=== PATIENT | male | born 1970 | race Two or more races ===

== ENCOUNTER 2025-02-05 00:59 | Inpatient (IN) | payer MEDICAID, SELFPAY ==
[2025-02-05] VITALS (150 sets, daily range): BP systolic 56–179; BP diastolic 29–108; PULSE 66–114; RESP 6–30; TEMP 36.2–37.6; O2SAT 82–100; BMI 36.8
--- NOTE | 2025-02-05 01:04 | EKG_ITS ---
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
--- NOTE | 2025-02-05 01:17 | PD.EDABDPN ---
ED Abdominal Pain RME/HPI General Chief Complaint: Abdominal Pain Stated complaint: ABD PAIN, N/V X 3 DAYS Time seen by provider: 02/05/25 01:24 Arrival date/time: 02/05/25 00:59 RME / HPI RME / HPI narrative: See MDM for Dr. Garrison's HPI documentation. Related Data Home Medications ?Medication ?Instructions ?Recorded ?Confirmed empagliflozin 25 mg tablet 25 mg PO QDAY 09/07/22 02/08/24 (Jardiance) gabapentin 300 mg capsule 600 mg PO TID 09/07/22 02/08/24 insulin regular human 100 unit/mL See Rx Instructions .Route .COMPLEX 09/07/22 02/08/24 injection solution (Novolin R Regular U-100 Insulin) Held on 01/08/24. Instructions: Re-evaluate with PCP lisinopril 10 mg tablet 10 mg PO QDAY 09/07/22 02/08/24 Held on 01/08/24. Instructions: Re evaluate with PCP, blood pressure has been normal/low while in the hospital insulin detemir U-100 100 unit/mL 100 unit subcut QDAY 01/05/24 02/08/24 subcutaneous solution (Levemir U-100 Insulin) Held on 01/08/24. Instructions: re-evaluate with PCP metformin 1,000 mg tablet 1,000 mg PO BIDWMEAL 01/05/24 02/08/24 simvastatin 20 mg tablet 20 mg PO QPM 01/05/24 02/08/24 Previous Rx's ?Medication ?Instructions ?Recorded hydrocodone 5 mg-acetaminophen 325 1 tab PO BID PRN Pain (Scale Score 01/08/24 mg tablet 4-6) 10 days #20 tabs aspirin 325 mg capsule 325 mg PO BID #30 caps 01/11/24 Allergies Allergy/AdvReac Type Severity Reaction Status Date / Time No Known Allergies Allergy Verified 02/05/25 01:04 Review of Systems Review of Systems Systems Reviewed: All systems reviewed, normal except as documented Past Medical History Past Medical History NEUROLOGIC: Positive Head Trauma (head laceration from present fall.); Negative Neurological Disorders or Seizures CARDIAC: Positive Hypertension; Negative Cardiac Disorders or Congestive Heart Failure RESPIRATORY: Negative Chronic Obstructive Pulmonary Disease (COPD) or Asthma GASTROINTESTINAL: Positive Obesity GENITOURINARY: Positive Renal Disease MUSCULOSKELETAL: Positive Fractures ENT: Positive Head Trauma (head laceration from present fall.) ENDOCRINE: Positive Endocrine Disorders and Diabetes Mellitus Type 2; Negative Diabetes Mellitus Type 1 HEMATOLOGIC: Negative Sickle Cell Disease PSYCHO/SOCIAL: Positive Depression OTHER HISTORY: Positive Falls; Negative Autoimmune Disease, Blood Transfusions, Blood Transfusion Reaction, Anesthesia Reactions, MRSA, Clostridium Difficile or Cancer Social History SMOKING STATUS: Never smoker SUBSTANCE USE: does not use ED Exam Narrative Physical exam: See MDM for Dr. Garrison's physical exam documentation. Course Quality Measures none Orders Category Date Time Status Admit to Inpatient Status Routine Admission 02/05/25 03:44 Active Patient Condition Routine Admission 02/05/25 03:43 Ordered Bedside Blood Glucose NOW Care 02/05/25 01:04 Active Bedside Blood Glucose Q1H Care 02/05/25 03:46 Active Bedside COVID-19 Antigen Test NOW Care 02/05/25 01:24 Active COVID-19 Screening Questionnaire NOW Care 02/05/25 03:37 Active [employer]otive [employer] Counter Assistant Q4H Care 02/05/25 03:46 Active DKA Protocol QSHIFT Care 02/05/25 03:46 Active Decision to Admit X1 Care 02/05/25 03:36 Active EKG (ED ONLY) *Do not use* NOW Care 02/05/25 01:04 Completed EKG (ED ONLY) *Do not use* NOW Care 02/05/25 01:57 Completed Emergency Titration Protocol Stat Care 02/05/25 01:46 Ordered Christina to Meridian Routine Care 02/05/25 02:13 Ordered Intake and Output Q1H Care 02/05/25 04:00 Ordered Intake and Output Q1H Care 02/05/25 05:00 Ordered Intake and Output Q1H Care 02/05/25 06:00 Ordered Intake and Output Q1H Care 02/05/25 07:00 Ordered Intake and Output Q1H Care 02/05/25 08:00 Ordered Intake and Output Q1H Care 02/05/25 09:00 Ordered Intake and Output Q1H Care 02/05/25 10:00 Ordered Intake and Output Q1H Care 02/05/25 11:00 Ordered Intake and Output Q1H Care 02/05/25 12:00 Ordered Intake and Output Q1H Care 02/05/25 13:00 Ordered Intake and Output Q1H Care 02/05/25 14:00 Ordered Intake and Output Q1H Care 02/05/25 15:00 Ordered Intake and Output Q1H Care 02/05/25 16:00 Ordered Intake and Output Q1H Care 02/05/25 17:00 Ordered Intake and Output Q1H Care 02/05/25 18:00 Ordered Intake and Output Q1H Care 02/05/25 19:00 Ordered Intake and Output Q1H Care 02/05/25 20:00 Ordered Intake and Output Q1H Care 02/05/25 21:00 Ordered Intake and Output Q1H Care 02/05/25 22:00 Ordered Intake and Output Q1H Care 02/05/25 23:00 Ordered Notify provider NEEDED Care 02/05/25 03:43 Active Notify provider NEEDED Care 02/05/25 03:46 Active Saline [Insert IV] NOW Care 02/05/25 01:25 Active Referral Registered Dietitian Routine Cons 02/05/25 03:46 Active Diet Carbohydrate Consistent Diet 02/05/[address] chest abdomen pelvis wo Stat Exams 02/05/25 01:27 Taken EKG (ED Only) Stat Exams 02/05/25 01:04 Draft EKG (ED Only) Stat Exams 02/05/25 01:57 Draft XR chest 1V portable Stat Exams 02/05/25 01:27 Taken ABG [Arterial Blood Gas] Stat Lab 02/05/25 03:43 Completed Alcohol, Blood Medical Stat Lab 02/05/25 01:32 Completed Ammonia Stat Lab 02/05/25 01:32 Completed Amylase Stat Lab 02/05/25 01:32 Completed BNP [B-Type Natriuretic Peptide] Stat Lab 02/05/25 01:32 Completed Beta Hydroxybutyrate Stat Lab 02/05/25 01:32 Completed Bilirubin,Direct Stat Lab 02/05/25 01:32 Completed Blood Culture (Lab) Stat Lab 02/05/25 01:32 Received CBC AM DRAW Lab 02/05/25 05:00 Ordered CBC AM DRAW Lab 02/06/25 05:00 Ordered CBC AM DRAW Lab 02/07/25 05:00 Ordered CBC Stat Lab 02/05/25 01:32 Completed CK [Creatine Kinase] Stat Lab 02/05/25 01:32 Completed CMP [Comprehensive Metabolic Panel] Stat Lab 02/05/25 01:32 Completed CRP [C-Reactive Protein] Stat Lab 02/05/25 01:32 Completed Drug Screen,Urine Stat Lab 02/05/25 01:52 Completed ESR [Sed Rate (ESR)] Stat Lab 02/05/25 01:32 Completed Free T4 (Free Thyroxine) Stat Lab 02/05/25 03:46 Ordered Glycohemoglobin w (eAG) AM DRAW Lab 02/05/25 05:00 Ordered Influenza A & B Rapid Panel Stat Lab 02/05/25 01:35 Completed Influenza A & B Rapid Panel Stat Lab 02/05/25 02:18 Ordered Lactate (Lactic Acid) Q4H Lab 02/05/25 08:00 Ordered Lactate (Lactic Acid) Q4H Lab 02/05/25 12:00 Ordered Lactate (Lactic Acid) Q4H Lab 02/05/25 16:00 Ordered Lactate (Lactic Acid) Q4H Lab 02/05/25 20:00 Ordered Lactate (Lactic Acid) Stat Lab 02/05/25 01:32 Results Lipase Stat Lab 02/05/25 01:32 Completed Magnesium AM DRAW Lab 02/05/25 05:00 Ordered Magnesium AM DRAW Lab 02/06/25 05:00 Ordered Magnesium AM DRAW Lab 02/07/25 05:00 Ordered Magnesium Q4H Lab 02/05/25 08:00 Ordered Magnesium Q4H Lab 02/05/25 12:00 Ordered Magnesium Q4H Lab 02/05/25 16:00 Ordered Magnesium Q4H Lab 02/05/25 20:00 Ordered Magnesium Q4H Lab 02/06/25 00:00 Ordered Magnesium Q4H Lab 02/06/25 04:00 Ordered Magnesium Q4H Lab 02/06/25 08:00 Ordered Magnesium Q4H Lab 02/06/25 12:00 Ordered Magnesium Q4H Lab 02/06/25 16:00 Ordered Magnesium Q4H Lab 02/06/25 20:00 Ordered Magnesium Q4H Lab 02/07/25 00:00 Ordered Magnesium Q4H Lab 02/07/25 04:00 Ordered Magnesium Stat Lab 02/05/25 01:32 Completed Path Review Blood Smear Stat Lab 02/05/25 01:32 Completed Procalcitonin Stat Lab 02/05/25 01:32 Completed Renal Function Panel AM DRAW Lab 02/05/25 05:00 Ordered Renal Function Panel AM DRAW Lab 02/06/25 05:00 Ordered Renal Function Panel AM DRAW Lab 02/07/25 05:00 Ordered Renal Function Panel Q4H Lab 02/05/25 08:00 Ordered Renal Function Panel Q4H Lab 02/05/25 12:00 Ordered Renal Function Panel Q4 Lab 02/05/25 16:00 Ordered Renal Function Panel Q4 Lab 02/05/25 20:00 Ordered Renal Function Panel Q4 Lab 02/06/25 00:00 Ordered Renal Function Panel Q4 Lab 02/06/25 04:00 Ordered Renal Function Panel Q4 Lab 02/06/25 08:00 Ordered Renal Function Panel Q4 Lab 02/06/25 12:00 Ordered Renal Function Panel Q4 Lab 02/06/25 16:00 Ordered Renal Function Panel Q4 Lab 02/06/25 20:00 Ordered Renal Function Panel Q4 Lab 02/07/25 00:00 Ordered Renal Function Panel Q4 Lab 02/07/25 04:00 Ordered TSH [Thyroid Stimulating Hormone] Stat Lab 02/05/25 01:32 Completed Troponin I Stat Lab 02/05/25 01:32 Completed UA, C/S IF [Urinalysis, C/S if Indicated] Stat Lab 02/05/25 01:52 Completed Amiodarone 360 mg Ivpb [Nexterone Ivpb] Med 02/05/25 01:56 Active 360 mg in 200 ml IV 33.333 mls/hr Amiodarone Inj [Cordarone Inj] Med 02/05/25 01:54 Discontinued 150 mg IV .STK-MED ONE Amiodarone Inj [Cordarone Inj] Med 02/05/25 02:03 Discontinued 150 mg IV .STK-MED ONE Amiodarone Inj [Cordarone Inj] 150 mg Med 02/05/25 01:55 Discontinued Dextrose 5%-Water [D5w] 100 ml IV X1 Dextrose 5%-Lactated Ringers [D5-Lr] 1,000 ml Med 02/05/25 03:46 Ordered Pot Chl Additive [KCl Additive] 40 meq IV 250 mls/hr Dextrose 5%-Lactated Ringers [D5-Lr] 1,000 ml Med 02/05/25 03:46 Active IV 250 mls/hr Dextrose 50% Syr [D50w Syringe Abboject] Med 02/05/25 03:46 Active 25 ml IV PRNMRX1 PRN Diazepam Inj [Valium Inj] Med 02/05/25 01:55 Discontinued 5 mg IVP X1 ONE KCL 20 mEq/L in D5-LR Med 02/05/25 03:46 Active 20 meq in 1,000 ml IV 250 mls/hr Magnesium Sulfate 2 GM Ivpb [Magnesium Sulfate Ivpb] Med 02/05/25 03:46 Active 2 gm in 50 ml IV 25 mls/hr Magnesium Sulfate 2 GM Ivpb [Magnesium Sulfate Ivpb] Med 02/05/25 01:55 Discontinued 2 gm in 50 ml IV X1 Magnesium Sulfate 2 GM Ivpb [Magnesium Sulfate Ivpb] Med 02/05/25 02:12 Active 2 gm in 50 ml IV X1 Magnesium Sulfate 2 GM Ivpb [Magnesium Sulfate Ivpb] 50 Med 02/05/25 01:54 Discontinued ml IV .STK-MED Norepinephrine/D5W 8mg/250ml [Levophed in D5W 8mg/250ml Med 02/05/25 01:38 Active ] 8 mg in 250 ml IV 0.05 mcg/kg/min Ondansetron Inj [Zofran Inj] Med 02/05/25 01:26 Discontinued 4 mg IVP X1 ONE POT PHOS 15 mMol in NS 250 ML [Pot Phos 15 mMol in NS Med 02/05/25 03:46 Ordered 250 ml] 15 mmol in 250 ml IV PRN POTASSIUM CHL 10 mEq IVPB [Kcl Ivpb] Med 02/05/25 03:46 Active 10 meq in 100 ml IV 100 mls/hr POTASSIUM CHL 10 mEq IVPB [Kcl Ivpb] Med 02/05/25 03:46 Active 10 meq in 100 ml IV PRN POTASSIUM CHL 10 mEq IVPB [Kcl Ivpb] Med 02/05/25 03:12 Active 10 meq in 100 ml IV X1 POTASSIUM CHL 10 mEq IVPB [Kcl Ivpb] Med 02/05/25 03:13 Active 10 meq in 100 ml IV X1 Ringers Lactated 1000 ml [Lactated Ringers] 1,000 ml Med 02/05/25 03:46 Ordered Pot Chl Additive [KCl Additive] 20 meq IV 250 mls/hr Ringers Lactated 1000 ml [Lactated Ringers] 1,000 ml Med 02/05/25 03:46 Ordered Pot Chl Additive [KCl Additive] 40 meq IV 250 mls/hr Ringers Lactated 1000 ml [Lactated Ringers] 1,000 ml Med 02/05/25 02:24 Discontinued IV 1,000 mls/hr Ringers Lactated 1000 ml [Lactated Ringers] 1,000 ml Med 02/05/25 03:46 Active IV 250 mls/hr Ringers Lactated 1000 ml [Lactated Ringers] 1,000 ml Med 02/05/25 03:30 Active IV 500 mls/hr Sodium Bicarb 8.4% SYR Med 02/05/25 03:46 Active 50 ml IV Q4HR PRN Sodium Chloride 0.9% 1000 ml [Ns] 1,000 ml Med 02/05/25 01:26 Discontinued IV 999 mls/hr Sodium Chloride 0.9% 1000 ml [Ns] 1,000 ml Med 02/05/25 01:37 Discontinued IV 999 mls/hr Sodium Chloride 0.9% 250 ml [Ns] 250 ml Med 02/05/25 03:46 Ordered Sod Phos Additive [NaPhos Additive] 15 mmol IV 62.5 mls/hr Code Status Routine Oth 02/05/25 03:43 Ordered EKG (RT) Stat RT 02/05/25 03:46 Ordered Vital Signs Vital signs: Vital Signs Temperature 98.0 F 02/05/25 01:05 Pulse Rate 105 H 02/05/25 01:05 Respiratory Rate 20 02/05/25 01:05 Pulse Oximetry (%) 98 02/05/25 01:05 Oxygen Delivery Method Room Air 02/05/25 01:05 Abdominal Pain MDM MDM Narrative MDM Narrative:: This section includes all my notes and documentations, including HPI, PE, and ED course. Bob Garrison MD HPI: 54-year-old male here to be evaluated with AMS. Can't obtain history from the patient due to AMS. History is from son who is present and over the phone. Has insulin-dependent diabetes. No use of insulin for several months, until yesterday. Son reports several days of progressively worsening mental status and inability to ambulate and function. Normally, he is completely alert and oriented and ambulatory. reports decreased oral intake and vomiting. No other complaints. ROS: All negative except as documented in HPI. Physical Exam: General:?Patient is severely lethargic. Unpurposeful movements noted. Hypotension noted. Eyes:? Conjunctivae and lids clear.? EOMI.? PERRL. ENT:? No signs of head trauma. Neck:? Supple.? No tenderness. Heart:? RRR. Lungs:? No respiratory distress.? Decreased air movement.? No severe rhonchi, wheezing, rales.? Chest:? No tenderness. Abdomen:? Soft with equivocal lower quadrant tenderness.? Normal bowel sounds.? No distension.? No rebound or guarding.? Back:? No tenderness.? Skin:? Warm and dry.? Neuro:? Cranial Nerves II-XII grossly intact.? No obvious peripheral motor deficits. Musculoskeletal:? All major joints and bones are not tender with no limited ROM. I reviewed all diagnostic test results. My interpretation of the EKG is sinus rhythm with no acute ST?T changes. My interpretation of the chest x-ray is no acute findings. My review of the CT chest abdomen pelvis report is no acute findings. Blood tests remarkable for WBC 13.7, ESR 66, K 2.9, CO2 11.2, anion gap 22, creatinine 1.6, Lactic Acid 4.9, CRP 1.3, amylase 199, lipase 341, Beta Hydroxybutyrate 4.8. UA remarkable for 4+ glucose and 4+ ketones. COVID/Influenza negative. At this point, diagnoses include: Hypotension AMS (altered mental status) LILIANA (acute kidney injury) Hypokalemia Ventricular tachycardia (during the ED course, resolved with MgSO4 and Amiodarone) Starvation ketoacidosis Treatment here included: IVF (4 L) Zofran MgSO4 4 gram IV Amiodarone bolus and drip KCl 10 meq IV X 2 Levophed drip Improvement noted. I discussed the case with our ICU service. About the presentation and exam and diagnostics and treatments here. And need of further care in the hospital. Will accept the patient. Bob Garrison MD Patient data External records reviewed:: [facility] previous records (Per chart review, patient was admitted here on 01/03/24 for LILIANA.) Clinical information provided by:: patient Social determinants that could affect healthcare access:: none Patient has the following chronic illnesses:: DM, HTN How is presenting disease/condition affected by chronic disease/condition?: uneffected by Evaluation data The following diagnostics were reviewed and interpreted by me:: lab results, radiology exam(s) and EKG tracing(s) (My interpretation of the EKG is: Sinus rhythm (103 bpm) with nonspecific ST-T changes. Bob Garrison MD) Lab and/or radiology exams considered but not ordered:: none Interpretation Summary: I reviewed all diagnostic test results. My interpretation of the EKG is sinus rhythm with no acute ST?T changes. My interpretation of the chest x-ray is no acute findings. My review of the CT chest abdomen pelvis report is no acute findings. Blood tests remarkable for WBC 13.7, ESR 66, K 2.9, CO2 11.2, anion gap 22, creatinine 1.6, Lactic Acid 4.9, CRP 1.3, amylase 199, lipase 341, Beta Hydroxybutyrate 4.8. UA remarkable for 4+ glucose and 4+ ketones. COVID/Influenza negative. Medications / Prescriptions Medications or Prescriptions considered but not ordered:: none Medication administrations:: Medication Administration History Dextrose (Dextrose 50%-Water Inj 50 Ml Syringe) 25 ml IV PRNMRX1 PRN PRN Reason: Blood Sugar - Low Norepinephrine/Dextrose (Levophed In D5w 8mg/250ml) 8 mg in 250 mls @ 9.993 mls/hr IV .Q24H PRN; Protocol PRN Reason: PER PROTOCOL Stop: 03/07/25 01:37 Last Titration: 02/05/25 03:34 Dose: 0 mcg/kg/min, 0.19 mls/hr Documented By: Titration: 02/05/25 03:27 Dose: 0 mcg/kg/min, 0.19 mls/hr Documented By: Titration: 02/05/25 03:22 Dose: 0.19 mcg/kg/min, 37.974 mls/hr Documented By: Titration: 02/05/25 02:18 Dose: 0.12 mcg/kg/min, 23.984 mls/hr Documented By: [email or web address] Titration: 02/05/25 02:13 Dose: 0.1 mcg/kg/min, 19.986 mls/hr Documented By: [email or web address] Titration: 02/05/25 02:08 Dose: 0.09 mcg/kg/min, 17.988 mls/hr Documented By: [email or web address] Titration: 02/05/25 01:51 Dose: 0.1 mcg/kg/min, 19.986 mls/hr Documented By: [email or web address] Titration: 02/05/25 01:49 Dose: 0.09 mcg/kg/min, 17.988 mls/hr Documented By: [email or web address] Admin: 02/05/25 01:41 Dose: 0.05 mcg/kg/min, 9.993 mls/hr Documented By: YRIS Amiodarone HCl/Dextrose (Nexterone Ivpb) 360 mg in 200 mls @ 33.333 mls/hr IV .Q6H ONE Stop: 02/05/25 07:55 Last Admin: 02/05/25 02:06 Dose: 33.333 mls/hr Documented By: YRIS Magnesium Sulfate (Magnesium Sulfate Ivpb) 2 gm in 50 mls @ 25 mls/hr IV X1 ONE Stop: 02/05/25 04:11 Last Admin: 02/05/25 02:24 Dose: 25 mls/hr Documented By: YRIS Potassium Chloride (Kcl Ivpb) 10 meq in 100 mls @ 100 mls/hr IV X1 ONE Stop: 02/05/25 04:11 Last Admin: 02/05/25 03:25 Dose: 100 mls/hr Documented By: MONICA Potassium Chloride (Kcl Ivpb) 10 meq in 100 mls @ 100 mls/hr IV X1 ONE Stop: 02/05/25 04:12 Lactated Ringer's (Lactated Ringers) 1,000 mls @ 500 mls/hr IV .Q2H ANGÉLICA Stop: 03/07/25 03:29 Potassium Chloride (Kcl Ivpb) 10 meq in 100 mls @ 100 mls/hr IV .Q1H PRN PRN Reason: IF POTASSIUM LESS THAN 3.3 Stop: 03/07/25 03:45 Magnesium Sulfate (Magnesium Sulfate Ivpb) 2 gm in 50 mls @ 25 mls/hr IV .Q2H PRN PRN Reason: PER DKA PROTOCOL Stop: 03/07/25 03:45 Dextrose/Lactated Ringer's (D5-Lr) 1,000 mls @ 250 mls/hr IV .Q4H PRN PRN Reason: PER PROTOCOL Stop: 03/07/25 03:45 Lactated Ringer's (Lactated Ringers) 1,000 mls @ 250 mls/hr IV .Q4H PRN PRN Reason: PER PROTOCOL Stop: 02/06/25 03:45 Potassium Chloride 20 meq/ (Lactated Ringer's) 1,010 mls @ 250 mls/hr IV .Q4H3M PRN PRN Reason: K LEVEL 3.3 TO 5.3mM/L Stop: 03/07/25 03:45 Potassium Chloride 40 meq/ (Lactated Ringer's) 1,020 mls @ 250 mls/hr IV .Q4H5M PRN PRN Reason: K LEVEL < 3.3 mM/L Stop: 03/07/25 03:45 Potassium Chloride 40 meq/ (Dextrose/Lactated Ringer's) 1,020 mls @ 250 mls/hr IV .Q4H5M PRN PRN Reason: K LEVEL < 3.3mM/L Stop: 03/07/25 03:45 Potassium Cl/Dextrose/Lact Ringer's (Kcl 20 Meq/L In D5-Lr) 20 meq in 1,000 mls @ 250 mls/hr IV .Q4H PRN PRN Reason: K LEVEL 3.3 TO 5.3 mM/L Potassium Chloride (Kcl Ivpb) 10 meq in 100 mls @ 50 mls/hr IV PRN PRN PRN Reason: K LEVEL 3.3 to 5.3 & BG > 200 Stop: 03/07/25 03:45 Potassium Phosphate (Pot Phos 15 Mmol In Ns 250 Ml) 15 mmol in 250 mls @ 62.5 mls/hr IV PRN PRN PRN Reason: Phosphate <= 1mg/dL Stop: 03/07/25 03:45 Sodium Phosphate 15 mmol/ (Sodium Chloride) 255 mls @ 62.5 mls/hr IV .Q4H5M PRN PRN Reason: Phosphate <= 1mg/dL and K> than 5.3 Stop: 03/07/25 03:45 Sodium Bicarbonate (Sodium Bicarb Inj 8.4% Syr 50 Ml Syringe) 50 ml IV Q4HR PRN PRN Reason: For ph <= to 7.0 Stop: 03/07/25 03:45 Discontinued Medications Amiodarone HCl (Amiodarone Inj 50 Mg/Ml Vial 3 Ml) Confirm Administered Dose 150 mg IV .STK-MED ONE Stop: 02/05/25 01:55 Last Admin: 02/05/25 02:03 Dose: Not Given Documented By: YRIS Non-Admin Reason: Duplicate Medication on eMAR Amiodarone HCl (Amiodarone Inj 50 Mg/Ml Vial 3 Ml) Confirm Administered Dose 150 mg IV .STK-MED ONE Stop: 02/05/25 02:04 Last Admin: 02/05/25 02:10 Dose: Not Given Documented By: YRIS Non-Admin Reason: Duplicate Medication on eMAR Diazepam (Diazepam Inj 5 Mg/Ml Vial 2 Ml) 5 mg IVP X1 ONE Stop: 02/05/25 01:56 Sodium Chloride (Ns) 1,000 mls @ 999 mls/hr IV .Q1H1M ONE Stop: 02/05/25 02:26 Last Infusion: 02/05/25 02:13 Dose: Infused Documented By: Admin: 02/05/25 01:39 Dose: 999 mls/hr Documented By: Infusion: 02/05/25 01:39 Dose: Infused Documented By: Admin: 02/05/25 01:33 Dose: 999 mls/hr Documented By: YRIS Sodium Chloride (Ns) 1,000 mls @ 999 mls/hr IV .Q1H1M ONE Stop: 02/05/25 02:37 Last Infusion: 02/05/25 02:13 Dose: Infused Documented By: Admin: 02/05/25 01:40 Dose: 999 mls/hr Documented By: YRIS Magnesium Sulfate (Magnesium Sulfate Ivpb) 2 gm in 50 mls @ 25 mls/hr IV X1 ONE Stop: 02/05/25 03:54 Last Infusion: 02/05/25 02:11 Dose: Infused Documented By: Admin: 02/05/25 02:01 Dose: 25 mls/hr Documented By: YRIS Amiodarone HCl 150 mg/ (Dextrose) 103 mls @ 600 mls/hr IV X1 ONE Stop: 02/05/25 02:05 Last Admin: 02/05/25 02:04 Dose: 600 mls/hr Documented By: YRIS Magnesium Sulfate (Magnesium Sulfate Ivpb) Confirm Administered Dose 50 mls @ ud IV .STK-MED ONE Stop: 02/05/25 01:55 Last Admin: 02/05/25 02:02 Dose: Not Given Documented By: YRIS Non-Admin Reason: Duplicate Medication on eMAR Lactated Ringer's (Lactated Ringers) 1,000 mls @ 1,000 mls/hr IV .Q1H ONE Stop: 02/05/25 03:23 Last Admin: 02/05/25 03:30 Dose: 1,000 mls/hr Documented By: MONICA Ondansetron HCl (Ondansetron Inj 2 Mg/Ml Inj 2 Ml) 4 mg IVP X1 ONE; Protocol Stop: 02/05/25 01:27 Last Admin: 02/05/25 01:39 Dose: 4 mg Documented By: YRIS Treatment here from me included: IVF (4 L) Zofran MgSO4 4 gram IV Amiodarone bolus and drip KCl 10 meq IV X 2 Levophed drip Consultations Consultation(s) initiated? (list below): Yes Consultation #1 (Physician, Specialty, Details): I discussed the case with our ICU service. About the presentation and exam and diagnostics and treatments here. And need of further care in the hospital. Will accept the patient. Diagnosis Differential diagnosis abdominal pain: other (MT, DKA, dehydration, electro abnormalities, UTI, pneumonia, sepsis) Most likely diagnosis given after review of the tests above:: At this point, diagnoses include: Hypotension AMS (altered mental status) LILIANA (acute kidney injury) Hypokalemia Ventricular tachycardia (during the ED course, resolved with MgSO4 and Amiodarone) Starvation ketoacidosis Admission Indicated Admission indicated?: indicated Explain why admission is indicated or not indicated:: At this point, diagnoses include: Hypotension AMS (altered mental status) LILIANA (acute kidney injury) Hypokalemia Ventricular tachycardia (during the ED course, resolved with MgSO4 and Amiodarone) Starvation ketoacidosis Admission Request Was there a request for admission?: Yes Admission Attestation Admission request attestation: Discussed case with ICU service regarding admission. Discussed patients ED course, exam findings, labs, and radiology results. Agreed to accept the patient for admission. Disposition Plan Disposition Plan: Admit Critical Care Time Critical Care Time Critical Care Time: Yes Total Critical Care Time (min.): 35 Attestation: Due to a high probability of clinically significant, life threatening deterioration, the patient required my highest level of preparedness to intervene emergently and I personally spent this critical care time directly and personally managing the patient. This critical care time included obtaining a history; examining the patient; ordering and review of studies; arranging urgent treatment with development of a management plan; evaluation of patient's response to treatment; frequent reassessment; and discussions with family and other providers. It was exclusive of separately billable procedures and treating other patients and teaching time. Bob Garrison MD Discharge Plan Plan Patient Disposition: Admit Acute Care w/in Hospital Prescriptions/Referrals Prescriptions/Med Rec: No Action lisinopril 10 mg tablet 10 mg PO QDAY gabapentin 300 mg capsule 600 mg PO TID Novolin R Regular U100 Insulin 100 unit/mL solution See Rx Instructions .ROUTE .COMPLEX Patient Comments: INJECT 15-45 UNITS PER SLIDING SCALE TARAH VECES AL D A 15 MINUTES BEFORE MEALS FOR 30 DAYS Rx Instructions: INJECT 15-45 UNITS PER SLIDING SCALE 3 TIMES DAILY Jardiance 25 mg tablet 25 mg PO QDAY Levemir U-100 Insulin 100 unit/mL Solution 100 unit SUBCUT QDAY Rx Instructions: patient takes 60 units twice a day sub q simvastatin 20 mg Tablet 20 mg PO QPM metformin 1,000 mg Tablet 1,000 mg PO BIDWMEAL hydrocodone-acetaminophen 5-325 mg Tablet 1 tab PO BID PRN (Reason: Pain (Scale Score 4-6)) 10 Days Qty: 20 0RF aspirin 325 mg capsule 325 mg PO BID Qty: 30 0RF Problem List Clinical Impression: AMS (altered mental status), LILIANA (acute kidney injury), Hypokalemia, Ventricular tachycardia, Starvation ketoacidosis, Acute hypotension Patient/Caregiver Discharge Instructions Print Language: Danish Stand Alone Forms: Nikole Award Info., Patient Portal Info Letter
--- NOTE | 2025-02-05 01:27 | XR_ITS ---
Examination: CT chest, without intravenous contrast. CT abdomen, without intravenous contrast. CT pelvis, without intravenous contrast. 2-D sagittal and coronal reconstructions. 3-D reconstructions. Date and time of exam: February 05, 2025, 0306 hours INDICATIONS: Abdominal pain nausea vomiting beginning 3 days ago CTDI vol (mgy) 16.4 DLP (MGycm) 1347 Technique: Multiple CT images, 3.0 mm slice thickness, obtained chest, abdomen, pelvis, with the high-resolution 64 slice scanner.. Sagittal and coronal 2-D reconstructions are obtained. 3-D reconstructions Low dose protocols were performed. One or more of the following dose reduction techniques were used; automated exposure control, adjustment of the mA and/or KV according to patient size, use of iterative reconstruction technique. Findings: Thoracic aorta pulmonary arteries intact Mild calcification left anterior descending coronary artery No hemopericardium Prominent vascular congestion Small bleb in the right lower lung zone 13 mm No definite pneumonia or pulmonary contusion No hemothorax Sternal segments thoracic and lumbar vertebral bodies appear intact with significant disc narrowing L5-S1 Ribs intact No liver or splenic or renal laceration Mild perinephric stranding Mild to moderate renal scar formation Abdominal aorta intact, no free blood in the abdomen Normal appendix Tiny fat-containing umbilical hernia Normal seminal vesicles Urinary bladder is contracted around a Christina catheter with wall thickening Hips bones of the pelvis intact IMPRESSION: 13 mm small bleb in the right lower lung zone No pneumothorax hemopericardium or hemothorax No abdominal parenchymal laceration Mild perinephric stranding and mild to moderate renal scar formation Normal appendix Urinary bladder is thickened, consider cystitis
--- NOTE | 2025-02-05 01:27 | XR_ITS ---
EXAMINATION: AP chest single view TECHNIQUE: AP portable semiupright chest single view Date and time: February 05, 2025, 0324 hours, comparison 01/03/2024 INDICATIONS: Abdominal pain nausea vomiting beginning 3 days ago FINDINGS: Atelectasis versus early pneumonia left base Reduced inspiration. Normal heart size Impression: Atelectasis versus early pneumonia left base
[2025-02-05] MEDS: SODIUM CHLORIDE 0.9% 1000 ML 1,000 ML 999 ML IV ×3 (01:33→01:40)
[2025-02-05] MEDS: ONDANSETRON INJ 2 MG/ML INJ 2 ML 4 MG IVP (01:39)
[2025-02-05] MEDS: Norepinephrine/D5W 8mg/250ml 8 MG/250 ML BAG 9.993 MG IV (01:41)
--- NOTE | 2025-02-05 01:57 | EKG_ITS ---
[facility] Test Date: 2025-02-05 Pat Name: GT Brodypartment: Room: - Gender: Male Cpht: : 1970 Requested By: Bob Huertas Order Number: [id number] Reading MD: Bob Huertas Measurements Intervals [place] Rate: 101 P: [place]: QRS: -71 QRSD: 134 T: 71 QT: 421 QTc: 547 Interpretive Statements UNCERTAIN IRREGULAR RHYTHM RIGHT BUNDLE BRANCH BLOCK [120+ ms QRS DURATION, UPRIGHT V1, 40+ ms S IN I/aVL/V4/V5/V6] LEFT ANTERIOR FASCICULAR BLOCK [QRS AXIS <= -45, QR IN I, RS IN II] CRITICAL TEST RESULT Compared to ECG 02/05/2025 01:09:26 Right bundle-branch block now present Left anterior fascicular block now present Sinus tachycardia no longer present Short [place] interval no longer present ST (T wave) deviation no longer present /store/S0/[id number].pdf
[2025-02-05] MEDS: Magnesium Sulfate 2 GM Ivpb 2 GM/50 ML BAG IV ×2 (02:01→02:24)
[2025-02-05] MEDS: DEXTROSE 5% IV (02:04)
[2025-02-05] MEDS: AMIODARONE IV (02:04)
[2025-02-05] MEDS: WATER IV (02:04)
[2025-02-05] MEDS: AMIODARONE 360 MG IVPB 360 MG/200 ML BAG 33.333 MG IV (02:06)
[2025-02-05 02:11] LABS: Collection Type, Urine Clean Catch
[2025-02-05 02:15] LABS: Basophils # (Auto) 0.1 Thou/mm3 (0.0-0.2); Basophils % (Auto) 0 % (0-2.5); Eosinophils # (Auto) 0.1 Thou/mm3 (0.0-0.5); Eosinophils % (Auto) 1 % (0-10); Hematocrit 49.7 % (41.0-53.0); Hemoglobin 16.5 g/dL (13.5-16.0); Immature Granulocytes Auto 0.15 Thou/mm3 (0.00-0.00); Lymphocytes # (Auto) 6.6 Thou/mm3 (1.0-4.8); Lymphocytes % (Auto) 48 % (10-50); Mean Corpuscular HGB Conc 33.2 g/dl (31.0-37.0); Mean Corpuscular Hemoglobin 30.1 pg (25.0-35.0); Mean Corpuscular Volume 91 fL (80-100); Monocytes # (Auto) 0.9 Thou/mm3 (0.0-0.8); Monocytes % (Auto) 7 % (0-12); Neutrophils # (Auto) 5.9 Thou/mm3 (1.8-7.7); Neutrophils % (Auto) 43 % (37-80); Nucleated Red Blood Cell # 0.03 Thou/mm3 (0.00-0.00); Nucleated Red Blood Cell % 0 /100 WBC (0); Platelet Count 330 Thou/mm3 (140-440); RDW Standard Deviation 42.7 fL (35.1-43.9); Red Blood Count 5.48 Miln/mm3 (4.50-5.90); White Blood Count 13.7 Thou/mm3 (3.8-10.6)
[2025-02-05 02:20] LABS: Lactate (Lactic Acid) 4.9 mMol/L (0.4-2.0)
[2025-02-05 02:21] LABS: Beta Hydroxybutyrate 4.8 mmol/L (<0.6)
[2025-02-05 02:22] LABS: Amphetamine/Methamp Scrn,U Negative (Negative); Barbiturate Screen,Urine Negative (Negative); Benzodiazepines Screen,Urine Negative (Negative); Benzoylecgonine Screen, Ur Negative (Negative); Fentanyl Screen,Urine Negative (Negative); Opiate Screen,Urine Negative (Negative); THC Screen,Urine Negative (Negative)
[2025-02-05 02:28] LABS: Sed Rate (ESR) 66 mm/hr (0-20)
[2025-02-05 02:33] LABS: Influenza A Ag Negative; Influenza B Ag Negative
[2025-02-05 02:45] LABS: B-Type Natriuretic Peptide < 20 pg/mL (0-100)
[2025-02-05 02:54] LABS: Bilirubin,Urine Negative (Negative); Blood,Urine Trace (Negative); Clarity,Urine Clear (Clear/Hazy); Color,Urine Colorless (Lt Yel-Yel); Culture Indicated,Urine Not Indicated; Glucose, Urine 4+ (Negative); Ketones,Urine 4+ (Negative); Leukocyte Esterase,Urine Negative (Negative); Nitrite,Urine Negative (Negative); PH,Urine 6.5 (5.0-7.0); Protein,Urine 1+ (Neg - Trace); RBC,Urine 3 /hpf (0-3); Renal Epithelial Cells,Urine < 1 /hpf (0-5); Specific Gravity,Urine 1.017 (1.001-1.035); Squamous Epithelial Cell,Urine < 1 /hpf (0-5); Urobilinogen,Urine Negative mg/dL (0.0-1.0); WBC,Urine 1 /hpf (0-5)
[2025-02-05 02:58] LABS: Alanine Aminotransferase 10 U/L (10-49); Albumin, Serum 4.4 gm/dL (3.5-5.0); Albumin/Globulin Ratio 1.3 (1.2-2.2); Alcohol, Blood Medical < 3.0 mg/dL (0-10.0); Alkaline Phosphatase 114 U/L (46-116); Ammonia < 10 uMol/L (11-32); Amylase 199 U/L (30-118); Anion Gap 22 (7-16); Aspartate Amino Transferase 16 U/L (0-34); BUN/Creatinine Ratio 6 Ratio (12-20); Bilirubin,Direct 0.1 mg/dL (0.0-0.3); Bilirubin,Total 0.4 mg/dL (0.3-1.2); Blood Urea Nitrogen 9 mg/dL (9-23); C-Reactive Protein 1.3 mg/dL (0.0-0.9); Calcium 10.0 mg/dL (8.3-10.6); Calcium (Corrected) 10.0 mg/dL (8.5-10.1); Chloride 107 mMol/L (98-107); Creatine Kinase 146 U/L (34-171); Creatinine (Component) 1.6 mg/dL (0.6-1.3); Estimated Creatinine Clearance 62.9 mL/min (>60); Globulin 3.3 gm/dL (2.3-3.5); Glucose 121 mg/dL (74-106); Lipase 342 U/L (12-53); Magnesium 2.3 mg/dL (1.6-2.6); Osmolality,Calculated 279 (275-295); Potassium 2.9 mMol/L (3.4-5.1); Procalcitonin 0.16 ng/ml (0.0-0.49); Sodium 140 mMol/L (136-145); Thyroid Stimulating Hormone 5.89 uIU/mL (0.55-4.78); Total Protein 7.7 gm/dL (5.7-8.2); Troponin I 0.022 ng/mL (0.0-0.045); eGFR 52 See Note
[2025-02-05 03:04] LABS: Carbon Dioxide 11.2 mMol/L (20.0-31.0)
[2025-02-05 03:10] LABS: Path Review Blood Smear Sent to Pathologist
[2025-02-05] MEDS: POTASSIUM CHL 10 mEq IVPB 10 MEQ/100 ML BAG 100 MEQ IV ×3 (03:25→05:49)
[2025-02-05] MEDS: RINGERS LACTATED 1000 ML 1,000 ML IV (03:30)
[2025-02-05 03:46] LABS: Base Excess -17 (-3-3); HCO3 10 mEq/L (20-26); Inspired O2, VO2 Liters 3 L/min; Inspired Oxygen, FIO2 21 %; O2 Saturation 96 % (91-98); PCO2 26 mmHg (32.0-48.0); PO2 85 mmHg (83-108)
--- NOTE | 2025-02-05 03:46 | EKG_ITS ---
[facility] Test Date: 2025-02-05 Pat Name: GT Brodypartment: Room: - Gender: Male Analysis Manager: SD : 1970 Requested By: Satish Hawkins Order Number: [id number] Reading MD: Satish Hawkins Measurements Intervals [place] Rate: 69 P: 26 NM: 147 QRS: -36 QRSD: 104 T: 76 QT: 446 QTc: 479 Interpretive Statements SINUS RHYTHM MARKED LEFT AXIS DEVIATION NONSPECIFIC ST & T-WAVE ABNORMALITY PROLONGED QT INTERVAL Compared to ECG 02/05/2025 01:58:47 Left-axis deviation now present T-wave abnormality now present Prolonged QT interval now present Right bundle-branch block no longer present Left anterior fascicular block no longer present /store/S0/[id number].pdf
[2025-02-05 03:51] LABS: pH, Arterial 7.17 (7.35-7.45)
[2025-02-05 03:52] LABS: Allen Test Performed/OK; Puncture Site Right Radial
--- NOTE | 2025-02-05 03:53 | ESHP_ITS ---
<Statement entered by Ady Vaughn MD - 02/05/25 07:13> I have discussed and was present for the essential components of the history, physical examination, diagnosis, and treatment plan with the resident. I agree with the patient's care as documented by the resident and amended herein by me. Ady Vaughn MD FACP. Documentation for date of: 02/05/25 HPI History of Present Illness History of present illness: Chief complaint: Altered mental status HPI: Mr. Calzada is a 54-year-old male with past medical history of type II IDDM, primary hypertension and recent right ankle ORIF, who was brought in to the ED via EMS for altered mentation. As per ED documentation, patient has apparently been noncompliant with his insulin at home, along with poor oral intake. Son reported several days of progressively worsening mental status, with inability to ambulate and carry out ADLs. At baseline patient is alert and oriented, and is able to perform ADLs independently. As per patient, he stopped his insulin about 2 months ago as it was making him crave sugars and have an increased appetite. He also stopped his oral medications on his own. He was AO x 3 in the ED when evaluated, claims that he does not think medications are working which is why he stopped everything. Patient also complains of burning and irritation in passing urine for the last 3 days, denies any fever or other systemic symptoms. Per son at bedside, daughter bought insulin and gave it to him 3 days ago to restart home medications, which triggered all the symptoms. In the ED, vitals showed hypotension BP 70/50, MAP 50s. Tachycardia HR 101-105 bpm, afebrile, and saturations 96/97% on 3 L oxygen via nasal cannula. Initial laboratory workup remarkable for mild leukocytosis WBC 13.7 with lymphocyte predominance, hemoconcentration Hb 16.5, hypokalemia K2.9, BHB 4.8 anion gap 22, pH 7.17, CO2 26 and bicarb 11.2, glucose 121, lactic acid 4.9. He also had mildly elevated CRP 1.3, TSH 5.89, lipase 342 and amylase 199. UA remarkable for 4+ glucosuria and 4+ ketonuria. U tox negative. EKG showed sinus tachycardia. Patient was admitted to the ICU for management of diabetic ketoacidosis, likely starvation ketoacidosis. Will start patient on DKA protocol without insulin drip at this time. Also started on Levophed for blood pressure. Allergies: NKFDA Social history: Marital?Status:? Tobacco?Use:?Denies ETOH?Use:?Denies Drug?Note:?Denies Social?History?Note:?Lives?with family Family history: Unsure Review of Systems Review of Systems ROS Unobtainable: unobtainable due to mental status Exam Vital Signs Temp Pulse Resp BP Pulse Ox O2 Del Method O2 Flow Rate 97.6 F 72 19 95/53 L 97 Nasal Cannula 3 02/05/25 02:26 02/05/25 02:26 02/05/25 02:26 02/05/25 02:26 02/05/25 02:26 02/05/25 02:02/05/25 02:26 Narrative Exam Constitutional Alert, oriented x3, drowsy. Turkish-speaking, son present at bedside for translation HEENT Vision grossly intact, PERRL. Patent nares. Trachea midline. Respiratory Chest normal on inspection and clear to auscultation bilaterally. Cardiovascular S1 and S2 audible, RRR. No murmurs or carotid bruit. No gross JVD. Abdominal Soft and BS + ; non tender to palpation in all quadrants. Genitourinary No bladder tenderness, no flank pain. Normal to palpation. Musculoskeletal Extremities tone within normal limits. No LE edema, left UE first phalanx amputation Neurological CN II - XII grossly intact. Extremity motor and sensation grossly intact. Skin Warm, dry and intact. No apparent lesions. Psychiatric Patient has a good affect, is cooperative. Results: Labs 02/05/25 04:30 02/05/25 01:32 Labs: Short CBC 02/05/25 Range/Units 01:32 WBC 13.7 H (3.8-10.6) Thou/mm3 Hgb 16.5 H (13.5-16.0) g/dL Hct 49.7 (41.0-53.0) % Plt Count 330 (140-440) Thou/mm3 BMP 02/05/25 01:32 Sodium 140 Potassium 2.9 L Chloride 107 Carbon Dioxide 11.2 L* BUN 9 Creatinine 1.6 H Glucose 121 H Calcium 10.0 Cardiac Enzymes 02/05/25 Range/Units 01:32 Total Creatine Kinase 146 (34-171) U/L Troponin I 0.022 (0.0-0.045) ng/mL Liver Function 02/05/25 Range/Units 01:32 Total Bilirubin 0.4 (0.3-1.2) mg/dL Direct Bilirubin 0.1 (0.0-0.3) mg/dL AST 16 (0-34) U/L ALT 10 (10-49) U/L Alkaline Phosphatase 114 (46-116) U/L Albumin 4.4 (3.5-5.0) gm/dL Urine 02/05/25 Range/Units 01:52 Urine Color Colorless A (Lt Yel-Yel) Urine Clarity Clear (Clear/Hazy) Urine pH 6.5 (5.0-7.0) Ur Specific [place] 1.017 (1.001-1.035) Urine Protein 1+ A (Neg - Trace) Urine Glucose (UA) 4+ A (Negative) ABG Interpretation ABG results: 02/05/25 03:43 ABG pH 7.17 L* ABG pCO2 26 L ABG pO2 85 ABG HCO3 10 L ABG O2 Saturation 96 ABG Base Excess -17 L Quality Measures Quality Measures none Medications Home Medications and Allergies Home Medications ?Medication ?Instructions ?Recorded ?Confirmed ?Type empagliflozin 25 mg tablet 25 mg PO QDAY 09/07/2201/29 History (Jardiance) gabapentin 300 mg capsule 600 mg PO TID 09/07/2202/07 History insulin regular human 100 unit/mL See Rx Instructions .Route .COMPLEX 09/07/22 02/08/24 History injection solution (Novolin R Regular U-100 Insulin) Held on 01/08/24. Instructions: Re-evaluate with PCP lisinopril 10 mg tablet 10 mg PO QDAY 09/07/2202/07 History Held on 01/08/24. Instructions: Re evaluate with PCP, blood pressure has been normal/low while in the hospital insulin detemir U-100 100 unit/mL 100 unit subcut QDAY 01/05/24 02/08/24 History subcutaneous solution (Levemir U-100 Insulin) Held on 01/08/24. Instructions: re-evaluate with PCP metformin 1,000 mg tablet 1,000 mg PO BIDWMEAL 4 02/08/24 History simvastatin 20 mg tablet 20 mg PO QPM 01/05/24 History Allergies Allergy/AdvReac Type Severity Reaction Status Date / Time No Known Allergies Allergy Verified 02/05/25 01:04 Visit Medications Dextrose (Dextrose 50%-Water Inj 50 Ml Syringe) 25 ml IV [id number] PRN PRN Reason: Blood Sugar - Low Norepinephrine/Dextrose (Levophed In D5w 8mg/250ml) 8 mg in 250 mls @ 9.993 mls/hr IV .Q24H PRN; Protocol PRN Reason: PER PROTOCOL Stop: 03/07/25 01:37 Last Titration: 02/05/25 03:34 Dose: 0 mcg/kg/min, 0.19 mls/hr Magnesium Sulfate (Magnesium Sulfate Ivpb) 2 gm in 50 mls @ 25 mls/hr IV X1 ONE Stop: 02/05/25 03:54 Last Infusion: 02/05/25 02:11 Dose: Infused Amiodarone HCl/Dextrose (Nexterone Ivpb) 360 mg in 200 mls @ 33.333 mls/hr IV .Q6H ONE Stop: 02/05/25 07:55 Last Admin: 02/05/25 02:06 Dose: 33.333 mls/hr Magnesium Sulfate (Magnesium Sulfate Ivpb) 2 gm in 50 mls @ 25 mls/hr IV X1 ONE Stop: 02/05/25 04:11 Last Admin: 02/05/25 02:24 Dose: 25 mls/hr Potassium Chloride (Kcl Ivpb) 10 meq in 100 mls @ 100 mls/hr IV X1 ONE Stop: 02/05/25 04:11 Last Admin: 02/05/25 03:25 Dose: 100 mls/hr Potassium Chloride (Kcl Ivpb) 10 meq in 100 mls @ 100 mls/hr IV X1 ONE Stop: 02/05/25 04:12 Lactated Ringer's (Lactated Ringers) 1,000 mls @ 500 mls/hr IV .Q2H ANGÉLICA Stop: 03/07/25 03:29 Potassium Chloride (Kcl Ivpb) 10 meq in 100 mls @ 100 mls/hr IV .Q1H PRN PRN Reason: IF POTASSIUM LESS THAN 3.3 Stop: 03/07/25 03:45 Magnesium Sulfate (Magnesium Sulfate Ivpb) 2 gm in 50 mls @ 25 mls/hr IV .Q2H PRN PRN Reason: PER DKA PROTOCOL Stop: 03/07/25 03:45 Dextrose/Lactated Ringer's (D5-Lr) 1,000 mls @ 250 mls/hr IV .Q4H PRN PRN Reason: PER PROTOCOL Stop: 03/07/25 03:45 Lactated Ringer's (Lactated Ringers) 1,000 mls @ 250 mls/hr IV .Q4H PRN PRN Reason: PER PROTOCOL Stop: 02/06/25 03:45 Potassium Chloride 20 meq/ (Lactated Ringer's) 1,010 mls @ 250 mls/hr IV .Q4H3M PRN PRN Reason: K LEVEL 3.3 TO 5.3mM/L Stop: 03/07/25 03:45 Potassium Chloride 40 meq/ (Lactated Ringer's) 1,020 mls @ 250 mls/hr IV .Q4H5M PRN PRN Reason: K LEVEL < 3.3 mM/L Stop: 03/07/25 03:45 Potassium Chloride 40 meq/ (Dextrose/Lactated Ringer's) 1,020 mls @ 250 mls/hr IV .Q4H5M PRN PRN Reason: K LEVEL < 3.3mM/L Stop: 03/07/25 03:45 Potassium Cl/Dextrose/Lact Ringer's (Kcl 20 Meq/L In D5-Lr) 20 meq in 1,000 mls @ 250 mls/hr IV .Q4H PRN PRN Reason: K LEVEL 3.3 TO 5.3 mM/L Potassium Chloride (Kcl Ivpb) 10 meq in 100 mls @ 50 mls/hr IV PRN PRN PRN Reason: K LEVEL 3.3 to 5.3 & BG > 200 Stop: 03/07/25 03:45 Potassium Phosphate (Pot Phos 15 Mmol In Ns 250 Ml) 15 mmol in 250 mls @ 62.5 mls/hr IV PRN PRN PRN Reason: Phosphate <= 1mg/dL Stop: 03/07/25 03:45 Sodium Phosphate 15 mmol/ (Sodium Chloride) 255 mls @ 62.5 mls/hr IV .Q4H5M PRN PRN Reason: Phosphate <= 1mg/dL and K> than 5.3 Stop: 03/07/25 03:45 Sodium Bicarbonate (Sodium Bicarb Inj 8.4% Syr 50 Ml Syringe) 50 ml IV Q4HR PRN PRN Reason: For ph <= to 7.0 Stop: 03/07/25 03:45 Discontinued Medications Diazepam (Diazepam Inj 5 Mg/Ml Vial 2 Ml) 5 mg IVP X1 ONE Stop: 02/05/25 01:56 Sodium Chloride (Ns) 1,000 mls @ 999 mls/hr IV .Q1H1M ONE Stop: 02/05/25 02:26 Last Infusion: 02/05/25 02:13 Dose: Infused Sodium Chloride (Ns) 1,000 mls @ 999 mls/hr IV .Q1H1M ONE Stop: 02/05/25 02:37 Last Infusion: 02/05/25 02:13 Dose: Infused Amiodarone HCl 150 mg/ (Dextrose) 103 mls @ 600 mls/hr IV X1 ONE Stop: 02/05/25 02:05 Last Admin: 02/05/25 02:04 Dose: 600 mls/hr Lactated Ringer's (Lactated Ringers) 1,000 mls @ 1,000 mls/hr IV .Q1H ONE Stop: 02/05/25 03:23 Last Admin: 02/05/25 03:30 Dose: 1,000 mls/hr Ondansetron HCl (Ondansetron Inj 2 Mg/Ml Inj 2 Ml) 4 mg IVP X1 ONE; Protocol Stop: 02/05/25 01:27 Last Admin: 02/05/25 01:39 Dose: 4 mg Assessment & Plan Plan Patient is a 54-year-old male admitted for acute metabolic encephalopathy in the setting of starvation ketoacidosis NEURO Acute metabolic encephalopathy -resolved Dx: - Ammonia <10 - Likely in the setting of ketoacidosis, pH 7.17 and bicarb 11.2 - On my ED evaluation, patient was AO x 4, slightly drowsy Rx: - Referral to speech therapy for swallow evaluation - No swallow screen x 1 ; if passes may start diet from breakfast - Continue neurochecks in the ICU. Anticipate improvement in mentation with fluids and electrolyte repletion - Recommend following up with head CT if mentation does not improve over the next 4-6 hours CVS Monomorphic V.Tach --> sinus Hypotension/shock - distributive vs. hypovolemic Dx: - Blood pressure 70s/40s initially--> 120s/60s after Levophed - No prior history of shock - LA 4.9 on admission, ESR 66 and CRP 1.3 - Likely in the setting of acute ketoacidosis and lactic acidosis, no overt signs of infection. Patient is afebrile - Patient apparently had a 6 sec sustained VTach - ProCal negative Rx: - Started on Levophed 0.19 in the ED, titrate down as tolerated - Continue IV fluids per DKA protocol - Continue low-dose Levophed, should be able to titrate off during the day - Every 4 hours lactic acid checks - Cardio consulted for further work up - Continue Amio gtt for now until you get cardio recs ENDO T2 IDDM Starvation ketoacidosis Dx: - History of type 2 insulin-dependent diabetes. - Home medication: Jardiance 25 mg daily, metformin 1 g twice daily, insulin Levemir, insulin regular Rx: - Started on DKA protocol, without insulin drip in the setting of starvation ketoacidosis - Pending neuro swallow screen, may start diet with breakfast - Replete electrolytes and dextrose as needed - Hypoglycemia protocol in place - HbA1c ordered for a.m. draw - Day team to transition to SC insulin as tolerated - Referral to registered dietitian. - Health equity referral for safety, knowledge deficit - Advisable to prescribe continuous glucose monitor on discharge PULM No active problems ID Symptomatic UTI Dx: Patient endorses dysuria for the last 3-4 days UA negative for nitrates, esterase and no bacteria. Rx: - Will start antibiotics empirically for now - Consider repeating UA and getting urine cultures RENAL AGMA? DKA, LA Prerenal LILIANA Acute hypokalemia Dx: - K 2.9 - BHB 4.8 , Glucose 121 - Anion gap 22 - ABG: pH 7.17, CO2 26 and bicarb 11.2 - Lactic acid 4.9 Rx: - KCl 30 mEq given - Every 4 hours renal panel + Every 4 hour magnesium checks - Follow-up CHEM panel closely, replete electrolytes as needed - Anticipate improvement in anion gap with IV fluids GI/Hep Lower abdominal pain Dx: - Patient denies any nausea vomiting lately, however endorses lower abdominal pain over the last 3 days - He has had UTI-like symptoms, and does endorse constipation as well - Of note, amylase 199, lipase 342 Rx: - As needed Zofran 4 mg every 6 hours - Follow-up CT abdomen pelvis read HEME/ONC Leukocytosis, likely reactive Hemoconcentration Dx: - WBC 13.7, Hb 16.5 Rx: - Continue IVF hydration on DKA protocol - Anticipate improvement with next lab check, continue to monitor ICU Health maintenance: Dispo: Admit to ICU for starvation ketoacidosis, on DKA protocol w/o insulin Diet: Carb consistent from breakfast in the a.m. DVT ppx: Enoxaparin 40mg SC daily GI ppx: Famotidine 20 mg twice daily IV lines: 2 pIV Code status: FULL CODE Plan of care discussed with hospitalist Dr. Vaughn, Satish Hawkins MD PGY 3 This document was compiled using speech recognition software. Grammatical errors can be an occasional consequence of this system due to software limitations.
--- NOTE | 2025-02-05 04:03 | PRELIM_ITS ---
CT scan of the chest, abdomen and pelvis without intravenous contrast (axial sections with sagittal and coronal reformats) February 05, 2025 0304 hours Clinical History: AMS and possible fall and abdominal pain. Comparison: None available at the time of this report. Findings: Mild bilateral lung consolidation, atelectasis versus pneumonia versus contusions. There is no pleural effusion or pneumothorax. The aorta is within normal limits for age on this noncontrast study. There is no mediastinal collection. There is no pericardial effusion. The liver, gallbladder, spleen, pancreas, and adrenals are unremarkable on this noncontrast study. No hydronephrosis. No traumatic renal injury. Mild bilateral perinephric fat stranding. The bowel is unremarkable. The urinary bladder is nondistended, limited evaluation, Christina catheter in place. There is no free fluid or free air. Degenerative changes of the imaged portions of the spine. Chronic multilevel disc disease. No acute fractures. Loss of the physiologic lumbar lordosis. Vascular calcifications. No evidence of appendicitis. Impression: No acute fractures. Mild bilateral lung consolidation, atelectasis versus pneumonia versus contusions. Mild bilateral perinephric fat stranding suspicious for medical renal disease. Report Electronically Signed By: Ras Izquierdo 02/05/2025 4:02:33 AM [EST]
[2025-02-05 04:39] LABS: Basophils # (Auto) 0.0 Thou/mm3 (0.0-0.2); Basophils % (Auto) 0 % (0-2.5); Eosinophils # (Auto) 0.0 Thou/mm3 (0.0-0.5); Eosinophils % (Auto) 0 % (0-10); Hematocrit 34.8 % (41.0-53.0); Hemoglobin 11.4 g/dL (13.5-16.0); Immature Granulocytes Auto 0.19 Thou/mm3 (0.00-0.00); Lymphocytes # (Auto) 1.8 Thou/mm3 (1.0-4.8); Lymphocytes % (Auto) 13 % (10-50); Mean Corpuscular HGB Conc 32.8 g/dl (31.0-37.0); Mean Corpuscular Hemoglobin 30.2 pg (25.0-35.0); Mean Corpuscular Volume 92 fL (80-100); Monocytes # (Auto) 1.3 Thou/mm3 (0.0-0.8); Monocytes % (Auto) 10 % (0-12); Neutrophils # (Auto) 10.3 Thou/mm3 (1.8-7.7); Neutrophils % (Auto) 76 % (37-80); Nucleated Red Blood Cell # 0.04 Thou/mm3 (0.00-0.00); Nucleated Red Blood Cell % 0 /100 WBC (0); Platelet Count 212 Thou/mm3 (140-440); RDW Standard Deviation 43.8 fL (35.1-43.9); Red Blood Count 3.77 Miln/mm3 (4.50-5.90); White Blood Count 13.6 Thou/mm3 (3.8-10.6)
[2025-02-05 04:54] LABS: Glucose Estimated Average 286 mg/dL (80-131); Hemoglobin A1C 11.6 % Hgb (4.8-6.0)
[2025-02-05 05:09] LABS: Reflex Lactate? Y
[2025-02-05] MEDS: DEXTROSE 5%-LACTATED RINGERS 1,000 ML 250 ML IV (05:48)
[2025-02-05] MEDS: Norepinephrine/D5W 8mg/250ml 8 MG/250 ML BAG 37.974 MG IV (07:25)
[2025-02-05] MEDS: AMIODARONE 360 MG IVPB 360 MG/200 ML BAG 16.667 MG IV (08:09)
[2025-02-05 08:44] LABS: Lactate (Lactic Acid) 2.4 mMol/L (0.4-2.0)
[2025-02-05 08:52] LABS: Hematocrit 47.2 % (41.0-53.0); Hemoglobin 15.6 g/dL (13.5-16.0)
[2025-02-05 09:15] LABS: Albumin, Serum 3.8 gm/dL (3.5-5.0); Anion Gap 20 (7-16); BUN/Creatinine Ratio 6 Ratio (12-20); Blood Urea Nitrogen 9 mg/dL (9-23); Calcium 9.6 mg/dL (8.3-10.6); Calcium (Corrected) 9.8 mg/dL (8.5-10.1); Chloride 106 mMol/L (98-107); Creatinine (Component) 1.4 mg/dL (0.6-1.3); Estimated Creatinine Clearance 71.8 mL/min (>60); Glucose 268 mg/dL (74-106); Magnesium 2.6 mg/dL (1.6-2.6); Osmolality,Calculated 285 (275-295); Phosphorous 2.1 mg/dL (2.4-5.1); Potassium 2.8 mMol/L (3.4-5.1); Sodium 139 mMol/L (136-145); eGFR > 60 See Note
[2025-02-05 09:17] LABS: Carbon Dioxide 12.9 mMol/L (20.0-31.0)
[2025-02-05 10:07] LABS: Alanine Aminotransferase 10 U/L (10-49); Alkaline Phosphatase 92 U/L (46-116); Aspartate Amino Transferase 15 U/L (0-34); Bilirubin,Total 0.2 mg/dL (0.3-1.2); Free T4 (Free Thyroxine) 1.44 ng/dL (0.89-1.76); Total Protein 6.5 gm/dL (5.7-8.2)
[2025-02-05 10:19] LABS: Folate 22.07 ng/mL (>5.38)
--- NOTE | 2025-02-05 10:23 | PD.RESCONSUL ---
HPI Data of Consult Requesting Physician: Ady Vaughn MD Admitting Provider: Ady Vaughn MD Attending Provider: Ady Vaughn MD Primary Care Provider: Joselito Serra MD Consult Narrative History of present illness: Patient is a 54-year-old male with past medical history of type II IDDM, primary hypertension, HLD, and recent right ankle ORIF, who was brought in to the ED via EMS for altered mentation. Patient reports that he had not been complaint with his insulin for the past 2 months. Symptoms of confusion precipitated after patient's daughter restarted his insulin. Denies chest pain, shortness of breath, palpitations. No lower extremity edema on exam. Denies any personal or family past medical history of heart problems. In the ED, vitals showed hypotension BP 70/50, MAP 50s. Tachycardia HR 101-105 bpm, afebrile, and saturations 96/97% on 3 L oxygen via nasal cannula. EKG showed sinus tachycardia on admission, however overnight, noted to have 6 second run of monomorphic ventricular fibrillation on ED telemetry. No other episodes noted since. Labs were significant for Hgb 16.5, potassium 2.9, and BHB 4.8. Anion gap 22, pH 7.17, CO2 26 and bicarb 11.2, glucose 121, lactic acid 4.9. He also had mildly elevated CRP 1.3, TSH 5.89, lipase 342 and amylase 199. UA remarkable for 4+ glucosuria and 4+ ketonuria. U tox negative. Was repleted with IV potassium chloride 10 mill equivalents x 3 and started on amiodarone GGT per protocol. Cardiology consulted for episode of monomorphic ventricular tachycardia, likely secondary to severe electrolyte abnormalities. Past Medical History: as above Family history: Mother has diabetes and possibly stroke. No known family history of heart disease. Surgical History: right ankle ORIF Social History: Denies history of smoking, denies current alcohol use, denies recreational drug use. Current Medications: pending official medication reconciliation; per pharmacy review, was on Jardiance 25 mg daily, gabapentin 600 mg daily, lisinopril 10 mg daily, metformin 1000 BID, simvastatin 20 mg nightly, and insulin 100 units Allergies: No known drug allergies cc:: cc: Ady Vaughn MD Exam Vital Signs Temp Pulse Resp BP Pulse Ox O2 Del Method O2 Flow Rate 99.6 F 75 15 111/57 L 97 Nasal Cannula 3 02/05/25 05:56 02/05/25 08:09 02/05/25 06:40 02/05/25 08:09 02/05/25 06:40 02/05/25 05:56 02/05/25 05:56 Narrative Exam Physical Exam General: Awake and in no acute distress. Conversational and non-toxic appearing. Obese Sami speaking male. HEENT: Normocephalic, atraumatic, mucous membranes moist. Heart: Regular rate and rhythm, normal S1 and S2, no murmurs appreciated. Lungs: Clear to auscultation with no wheezing or crackles. Abdomen: Soft, nondistended, nontender, positive bowel sounds. No guarding or rebound tenderness. Neurologic: Alert and oriented x3, no gross neurological deficit, and patient able to move all 4 extremities. Extremities: No edema. Left thumb amputation. Skin: No rash or ecchymoses. Results Labs 02/06/25 04:40 02/07/25 00:58 Labs: Short CBC 02/05/25 02/05/25 02/05/25 Range/Units 01:32 04:30 08:26 WBC 13.7 H 13.6 H (3.8-10.6) Thou/mm3 Hgb 16.5 H 11.4 L D 15.6 D (13.5-16.0) g/dL Hct 49.7 34.8 L D 47.2 D (41.0-53.0) % Plt Count 330 212 D (140-440) Thou/mm3 BMP 02/05/25 02/05/25 02/05/25 01:32 04:30 08:20 Sodium 140 Cancelled 139 Potassium 2.9 L Cancelled Chloride 107 Cancelled Carbon Dioxide 11.2 L* Cancelled BUN 9 Cancelled Creatinine 1.6 H Cancelled Glucose 121 H Cancelled Calcium 10.0 Cancelled 02/05/25 02/05/25 02/05/25 08:20 08:20 08:20 Sodium Cancelled Potassium 2.8 L Cancelled Chloride 106 Cancelled Carbon Dioxide 12.9 L* BUN Creatinine Glucose Calcium 02/05/25 02/05/25 02/05/25 08:20 08:20 08:20 Sodium Potassium Chloride Carbon Dioxide Cancelled BUN 9 Cancelled Creatinine 1.4 H Cancelled Glucose 268 H D Calcium 02/05/25 02/05/25 08:20 08:20 Sodium Potassium Chloride Carbon Dioxide BUN Creatinine Glucose Cancelled Calcium 9.6 Cancelled Cardiac Enzymes 02/05/25 Range/Units 01:32 Total Creatine Kinase 146 (34-171) U/L Troponin I 0.022 (0.0-0.045) ng/mL Liver Function 02/05/25 02/05/25 02/05/25 Range/Units 01:32 04:30 08:20 Total Bilirubin 0.4 0.2 L (0.3-1.2) mg/dL Direct Bilirubin 0.1 (0.0-0.3) mg/dL AST 16 (0-34) U/L ALT 10 (10-49) U/L Alkaline Phosphatase 114 (46-116) U/L Albumin 4.4 Cancelled (3.5-5.0) gm/dL 02/05/25 02/05/25 02/05/25 Range/Units 08:20 08:20 08:20 Total Bilirubin Cancelled (0.3-1.2) mg/dL Direct Bilirubin (0.0-0.3) mg/dL AST 15 Cancelled (0-34) U/L ALT 10 Cancelled (10-49) U/L Alkaline Phosphatase 92 D (46-116) U/L Albumin (3.5-5.0) gm/dL 02/05/25 02/05/25 Range/Units 08:20 08:20 Total Bilirubin (0.3-1.2) mg/dL Direct Bilirubin (0.0-0.3) mg/dL AST (0-34) U/L ALT (10-49) U/L Alkaline Phosphatase Cancelled (46-116) U/L Albumin 3.8 D Cancelled (3.5-5.0) gm/dL Urine 02/05/25 Range/Units 01:52 Urine Color Colorless A (Lt Yel-Yel) Urine Clarity Clear (Clear/Hazy) Urine pH 6.5 (5.0-7.0) Ur Specific [place] 1.017 (1.001-1.035) Urine Protein 1+ A (Neg - Trace) Urine Glucose (UA) 4+ A (Negative) ABG Interpretation ABG results: 02/05/25 03:43 ABG pH 7.17 L* ABG pCO2 26 L ABG pO2 85 ABG HCO3 10 L ABG O2 Saturation 96 ABG Base Excess -17 L Quality Measures Quality Measures none Medications Home Medications and Allergies Home Medications ?Medication ?Instructions ?Recorded ?Confirmed ?Type empagliflozin 25 mg tablet 25 mg PO QDAY 09/07/22 02/08/24 History (Jardiance) gabapentin 300 mg capsule 600 mg PO TID 09/07/22 02/08/24 History insulin regular human 100 unit/mL See Rx Instructions .Route .COMPLEX 09/07/22 02/08/24 History injection solution (Novolin R Regular U-100 Insulin) Held on 01/08/24. Instructions: Re-evaluate with PCP lisinopril 10 mg tablet 10 mg PO QDAY 09/07/22 02/08/24 History Held on 01/08/24. Instructions: Re evaluate with PCP, blood pressure has been normal/low while in the hospital insulin detemir U-100 100 unit/mL 100 unit subcut QDAY 01/05/24 02/08/24 History subcutaneous solution (Levemir U-100 Insulin) Held on 01/08/24. Instructions: re-evaluate with PCP metformin 1,000 mg tablet 1,000 mg PO BIDWMEAL 01/05/24 02/08/24 History simvastatin 20 mg tablet 20 mg PO QPM 01/05/24 02/08/24 History Allergies Allergy/AdvReac Type Severity Reaction Status Date / Time No Known Allergies Allergy Verified 02/05/25 01:04 Visit Medications Acetaminophen (Acetaminophen 500 Mg Tablet) 1,000 mg PO Q6H PRN PRN Reason: fever >99.9 Stop: 03/07/25 05:14 Dextrose (Dextrose 50%-Water Inj 50 Ml Syringe) 25 ml IV [id number] PRN PRN Reason: Blood Sugar - Low Enoxaparin Sodium (Enoxaparin Sod Inj 30 Mg/0.3 Ml Syringe) 30 mg SC QPM ANGÉLICA Stop: 02/19/25 20:59 Famotidine (Famotidine Inj 10 Mg/Ml Vial 2 Ml) 20 mg IVP BID ANGÉLICA Stop: 03/07/25 08:59 Norepinephrine/Dextrose (Levophed In D5w 8mg/250ml) 8 mg in 250 mls @ 9.993 mls/hr IV .Q24H PRN; Protocol PRN Reason: PER PROTOCOL Stop: 03/07/25 01:37 Last Titration: 02/05/25 08:21 Dose: 0.17 mcg/kg/min, 33.977 mls/hr Potassium Chloride (Kcl Ivpb) 10 meq in 100 mls @ 100 mls/hr IV .Q1H PRN PRN Reason: IF POTASSIUM LESS THAN 3.3 Stop: 03/07/25 03:45 Last Admin: 02/05/25 05:49 Dose: 100 mls/hr Magnesium Sulfate (Magnesium Sulfate Ivpb) 2 gm in 50 mls @ 25 mls/hr IV .Q2H PRN PRN Reason: PER DKA PROTOCOL Stop: 03/07/25 03:45 Lactated Ringer's (Lactated Ringers) 1,000 mls @ 250 mls/hr IV .Q4H PRN PRN Reason: PER PROTOCOL Stop: 02/06/25 03:45 Potassium Chloride 20 meq/ (Lactated Ringer's) 1,010 mls @ 250 mls/hr IV .Q4H3M PRN PRN Reason: K LEVEL 3.3 TO 5.3mM/L Stop: 03/07/25 03:45 Potassium Chloride 40 meq/ (Lactated Ringer's) 1,020 mls @ 250 mls/hr IV .Q4H5M PRN PRN Reason: K LEVEL < 3.3 mM/L Stop: 03/07/25 03:45 Potassium Chloride 40 meq/ (Dextrose/Lactated Ringer's) 1,020 mls @ 250 mls/hr IV .Q4H5M PRN PRN Reason: K LEVEL < 3.3mM/L Stop: 03/07/25 03:45 Potassium Cl/Dextrose/Lact Ringer's (Kcl 20 Meq/L In D5-Lr) 20 meq in 1,000 mls @ 250 mls/hr IV .Q4H PRN PRN Reason: K LEVEL 3.3 TO 5.3 mM/L Potassium Chloride (Kcl Ivpb) 10 meq in 100 mls @ 50 mls/hr IV PRN PRN PRN Reason: K LEVEL 3.3 to 5.3 & BG > 200 Stop: 03/07/25 03:45 Potassium Phosphate (Pot Phos 15 Mmol In Ns 250 Ml) 15 mmol in 250 mls @ 62.5 mls/hr IV PRN PRN PRN Reason: Phosphate <= 1mg/dL Stop: 03/07/25 03:45 Sodium Phosphate 15 mmol/ (Sodium Chloride) 255 mls @ 62.5 mls/hr IV .Q4H5M PRN PRN Reason: Phosphate <= 1mg/dL and K> than 5.3 Stop: 03/07/25 03:45 Doxycycline Hyclate 100 mg/ (Sodium Chloride) 100 mls @ 100 mls/hr IV BID ANGÉLICA Stop: 02/12/25 08:59 Cefepime HCl 1 gm/ Sodium (Chloride) 50 mls @ 100 mls/hr IV Q8HR ANGÉLICA Stop: 02/12/25 05:48 Insulin Human Regular 100 unit (/ IV Miscellaneous Supplies) 100 mls @ 10.659 mls/hr IV .Q9H23M PRN; Protocol PRN Reason: PER PROTOCOL Stop: 03/07/25 07:33 Amiodarone HCl/Dextrose (Nexterone Ivpb) 360 mg in 200 mls @ 16.667 mls/hr IV .Q12H ANGÉLICA Stop: 02/06/25 07:53 Last Admin: 02/05/25 08:09 Dose: 16.667 mls/hr Potassium Acetate 40 meq/ (Lactated Ringer's) 1,020 mls @ 200 mls/hr IV .Q5H6M ONE Stop: 02/05/25 14:45 Sodium Bicarbonate (Sodium Bicarb Inj 8.4% Syr 50 Ml Syringe) 50 ml IV Q4HR PRN PRN Reason: For ph <= to 7.0 Stop: 03/07/25 03:45 Discontinued Medications Diazepam (Diazepam Inj 5 Mg/Ml Vial 2 Ml) 5 mg IVP X1 ONE Stop: 02/05/25 01:56 Sodium Chloride (Ns) 1,000 mls @ 999 mls/hr IV .Q1H1M ONE Stop: 02/05/25 02:26 Last Infusion: 02/05/25 02:13 Dose: Infused Sodium Chloride (Ns) 1,000 mls @ 999 mls/hr IV .Q1H1M ONE Stop: 02/05/25 02:37 Last Infusion: 02/05/25 02:13 Dose: Infused Magnesium Sulfate (Magnesium Sulfate Ivpb) 2 gm in 50 mls @ 25 mls/hr IV X1 ONE Stop: 02/05/25 03:54 Last Infusion: 02/05/25 02:11 Dose: Infused Amiodarone HCl 150 mg/ (Dextrose) 103 mls @ 600 mls/hr IV X1 ONE Stop: 02/05/25 02:05 Last Infusion: 02/05/25 02:15 Dose: Infused Amiodarone HCl/Dextrose (Nexterone Ivpb) 360 mg in 200 mls @ 33.333 mls/hr IV .Q6H ONE Stop: 02/05/25 07:55 Last Admin: 02/05/25 02:06 Dose: 33.333 mls/hr Magnesium Sulfate (Magnesium Sulfate Ivpb) 2 gm in 50 mls @ 25 mls/hr IV X1 ONE Stop: 02/05/25 04:11 Last Admin: 02/05/25 02:24 Dose: 25 mls/hr Lactated Ringer's (Lactated Ringers) 1,000 mls @ 1,000 mls/hr IV .Q1H ONE Stop: 02/05/25 03:23 Last Admin: 02/05/25 03:30 Dose: 1,000 mls/hr Potassium Chloride (Kcl Ivpb) 10 meq in 100 mls @ 100 mls/hr IV X1 ONE Stop: 02/05/25 04:11 Last Infusion: 02/05/25 04:25 Dose: Infused Potassium Chloride (Kcl Ivpb) 10 meq in 100 mls @ 100 mls/hr IV X1 ONE Stop: 02/05/25 04:12 Last Admin: 02/05/25 04:37 Dose: 100 mls/hr Lactated Ringer's (Lactated Ringers) 1,000 mls @ 500 mls/hr IV .Q2H ANGÉLICA Stop: 03/07/25 03:29 Dextrose/Lactated Ringer's (D5-Lr) 1,000 mls @ 250 mls/hr IV .Q4H PRN PRN Reason: PER PROTOCOL Stop: 03/07/25 03:45 Last Admin: 02/05/25 05:48 Dose: 250 mls/hr Ondansetron HCl (Ondansetron Inj 2 Mg/Ml Inj 2 Ml) 4 mg IVP X1 ONE; Protocol Stop: 02/05/25 01:27 Last Admin: 02/05/25 01:39 Dose: 4 mg Ondansetron HCl (Ondansetron Inj 2 Mg/Ml Inj 2 Ml) 4 mg IV Q6H PRN; Protocol PRN Reason: Nausea and vomiting Stop: 03/07/25 04:29 Ondansetron HCl (Ondansetron Inj 2 Mg/Ml Inj 2 Ml) 4 mg IVP X1 ONE; Protocol Stop: 02/05/25 09:43 Potassium Chloride (Potassium Chloride 20 Meq Tabcr) 40 meq PO X1 ONE Stop: 02/05/25 09:41 Potassium Chloride (Potassium Chloride 20 Meq Tabcr) 20 meq PO X1 ONE Stop: 02/05/25 09:41 Assessment & Plan Plan Patient is a 54-year-old male with past medical history of type II IDDM, primary hypertension and recent right ankle ORIF, who presented on 02/05/25 for altered mentation, found to be in DKA. Cardiology consulted for brief episode of monomorphic ventricular tachycardia. #Monomorphic nonsustained ventricular tachycardia #Acute hypokalemia Had 6 second episode of monomorphic ventricular tachycardia. Patient denies personal cardiac history and has never seen a hazardous materials handler. Denies any family history of cardiac disease. Potassium 2.9 on admission. Now converted back to sinus rhythm on telemetry, no other episodes noted. The NSVT likely secondary to AGMA, DKA and shock below. Given amiodarone in ED. - Continue amiodarone drip GGT per protocol until all the electrolytes are replaced aggressively. - Continue telemetry monitoring to monitor for any kind of further ventricular tachycardia episodes until the echocardiogram is completed to evaluate LV function and RV function as well as diastolic function. - Will consider starting on low-dose metoprolol tartrate if BP is stable. - S/p total 30 mill equivalents IV potassium chloride. Keep potassium >4 and magnesium >2 for cardiac membrane stabilization. - CTM telemetry #Hypotension #Shock, hypovolemic versus distributive #Starvation ketoacidosis #Hx insulin dependent DM type 2 #AGMA Presented with BP of 68/47. Per history, has not been taking his insulin for the past 2 months, until recently. Labs remarkable for lactic acid 4.9, ESR 66, CRP 1.3. BHB 4.8. Anion gap 22, pH 7.17, CO2 26 and bicarb 11.2, glucose 121, lactic acid 4.9. UA remarkable for 4+ glucosuria and 4+ ketonuria. Likely hypovolemic secondary to osmotic diuresis versus secondary to acute ketoacidosis and lactic acidosis. - Continue levophed 0.05 mcg/kg/min per primary team. #Pre-renal LILIANA #Hemoconcentration On admission, creatinine 1.4, baseline 0.6-0.7. - IV fluid resuscitation. Monitor for signs of fluid overload, if increased shortness of breath or peripheral swelling, diurese with IV Lasix 20 x1. #UTI, symptomatic #Lower abdominal pain #Leukocytosis, likely reactive Thank you for your consultation, please do not hesitate to reach out if you have any question or concern Patient plan of care was discussed with the senior resident, -, and attending physician, Dr. Tin Leo, PGY-1 Attending Provider Attestation/Addendum I have personally seen and examined the patient separately on the above date of service and discussed the plan of care with the resident. I reviewed the resident Dr. Bambi Leo consultation progress note and agree with the resident findings and plan in the note above and have also edited the documentation to reflect my findings and plan. Oscar Celeste M.D. Interventional Cardiology
[2025-02-05] MEDS: POTASSIUM ACET IV (10:41)
[2025-02-05] MEDS: RINGERS LACTATED IV (10:41)
[2025-02-05] MEDS: FAMOTIDINE INJ 10 MG/ML VIAL 2 ML 20 MG IVP ×2 (10:48→20:27)
[2025-02-05] MEDS: DOXYCYCLINE 100 MG TABLET PO ×2 (10:56→20:27)
[2025-02-05 11:36] LABS: Reflex Lactate? Y
[2025-02-05 11:42] LABS: Chloride,Urine Random 51.7 mMol/L (55.0-125.0); Potassium,Urine Random 10 mMol/L (12-62); Sodium,Urine Random 51.7 mMol/L (20.0-110.0)
[2025-02-05 12:46] LABS: Albumin, Serum 3.5 gm/dL (3.5-5.0); Anion Gap 18 (7-16); BUN/Creatinine Ratio 5 Ratio (12-20); Blood Urea Nitrogen 7 mg/dL (9-23); Calcium 8.8 mg/dL (8.3-10.6); Calcium (Corrected) 9.2 mg/dL (8.5-10.1); Chloride 105 mMol/L (98-107); Creatinine (Component) 1.3 mg/dL (0.6-1.3); Estimated Creatinine Clearance 77.4 mL/min (>60); Glucose 288 mg/dL (74-106); Magnesium 2.6 mg/dL (1.6-2.6); Osmolality,Calculated 280 (275-295); Phosphorous 1.9 mg/dL (2.4-5.1); Potassium 4.5 mMol/L (3.4-5.1); Sodium 136 mMol/L (136-145); eGFR > 60 See Note
[2025-02-05 12:51] LABS: Carbon Dioxide 13.1 mMol/L (20.0-31.0)
--- NOTE | 2025-02-05 13:28 | ECHO_ITS ---
Transthoracic Echo Report Ht (in): 67 Wt (lb): 235 Exam Location: 258 Status: Inpatient Manager Internal: Nya Delgado Indications: Procedure Performed: BP: 91 / 74 HR: 69 MEASUREMENTS (Male / Female) Normal Values 2D ECHO LV Diastolic Diameter PLAX 4.4 cm 4.2 - 5.9 / 3.9 - 5.3 cm LV Systolic Diameter PLAX 2.8 cm IVS Diastolic Thickness 0.9 cm 0.6 - 1.0 / 0.6 - 0.9 cm LVPW Diastolic Thickness 1.3 cm 0.6 - 1.0 / 0.6 - 0.9 cm LV Relative Wall Thickness 0.5 LVOT Diameter 2.0 cm LA Volume Index 17.2 cm?/m? 16 - 28 cm?/m? Ascending Aorta Diameter 3.3 cm M-MODE AV Cusp Separation MM 0.8 cm DOPPLER AV Peak Velocity 158.0 cm/s AV Peak Gradient 10.0 mmHg AV Mean Gradient 6.0 mmHg AV Velocity Time Integral 26.6 cm LVOT Peak Velocity 116.0 cm/s LVOT Peak Gradient 5.4 mmHg LVOT Velocity Time Integral 18.3 cm LVOT Cardiac Index 1732.3 cm?/min?m? AV Area Cont Eq vti 2.2 cm? AV Area Cont Eq pk 2.3 cm? MV Area PHT 3.4 cm? Mitral E Point Velocity 59.6 cm/s Mitral A Point Velocity 62.0 cm/s Mitral E to A Ratio 1.0 LV E' Lateral Velocity 7.5 cm/s Mitral E to LV E' Lateral Ratio 7.9 LV E' Septal Velocity 5.1 cm/s Mitral E to LV E' Septal Ratio 11.7 TR Peak Velocity 177.0 cm/s TR Peak Gradient 12.5 mmHg PV Peak Velocity 114.0 cm/s PV Peak Gradient 5.2 mmHg FINDINGS Left Ventricle Normal left ventricular size, wall thickness, systolic function with no obvious regional wall motion abnormalities.There is grade I diastolic dysfunction of the left ventricle (impaired relaxation pattern). The ejection fraction is visually estimated at 55-60 %. Right Ventricle The right ventricle is normal in size and systolic function. Left Atrium The left atrial cavity size is moderately increased. Right Atrium The right atrium is normal by two-dimensional imaging, color flow and Doppler imaging with no structural abnormalities, no thrombus formation present. Atrial Septum The interatrial septum appears normal with no evidence of a shunt. Aorta The aorta is normal by two-dimensional, color flow and Doppler interrogation. Mitral Valve The mitral valve is normal by two-dimensional, color flow and Doppler interrogation.Mild mitral regurgitation. Aortic Valve The aortic valve is trileaflet and normal by two-dimensional, color flow and Doppler interrogation. There is no significant aortic valve regurgitation. Tricuspid Valve The tricuspid valve is normal by two-dimensional, color flow and Doppler interrogation.There is mild tricuspid valve regurgitation. Pulmonic Valve The pulmonic valve is not well visualized. There is no significant pulmonic valve regurgitation. Vessels The pulmonary artery appears normal. The inferior vena cava not well visualized Pericardium The pericardium is normal by two-dimensional imaging. There is no significant pericardial effusion. CONCLUSIONS Indication: Shock and ? VT Overall poor images given the body habitus. Normal left ventricular size and function. Approximate ejection fraction is 55- 60%. Grade I diastolic dysfunction. Normal right ventricular size and function. Mild mitral regurgitation and tricuspid regurgitation The inferior vena cava not well visualized. No pericardial effusion Oscar Celeste (Electronically Signed) Final Date: 05 February 2025 18:21
[2025-02-05] MEDS: INSULIN LISPRO (AdmeLOG) 1 UNIT/0.01 ML UNIT 4 UNIT SC (13:41)
[2025-02-05 15:22] LABS: Lactate (Lactic Acid) 1.5 mMol/L (0.4-2.0)
[2025-02-05 15:23] LABS: Basophils # (Auto) 0.1 Thou/mm3 (0.0-0.2); Basophils % (Auto) 1 % (0-2.5); Eosinophils # (Auto) 0.0 Thou/mm3 (0.0-0.5); Eosinophils % (Auto) 0 % (0-10); Hematocrit 44.9 % (41.0-53.0); Hemoglobin 14.7 g/dL (13.5-16.0); Immature Granulocytes Auto 0.14 Thou/mm3 (0.00-0.00); Lymphocytes # (Auto) 2.6 Thou/mm3 (1.0-4.8); Lymphocytes % (Auto) 25 % (10-50); Mean Corpuscular HGB Conc 32.7 g/dl (31.0-37.0); Mean Corpuscular Hemoglobin 29.8 pg (25.0-35.0); Mean Corpuscular Volume 91 fL (80-100); Monocytes # (Auto) 1.0 Thou/mm3 (0.0-0.8); Monocytes % (Auto) 9 % (0-12); Neutrophils # (Auto) 6.6 Thou/mm3 (1.8-7.7); Neutrophils % (Auto) 63 % (37-80); Nucleated Red Blood Cell # 0.02 Thou/mm3 (0.00-0.00); Nucleated Red Blood Cell % 0 /100 WBC (0); Platelet Count 237 Thou/mm3 (140-440); RDW Standard Deviation 44.2 fL (35.1-43.9); Red Blood Count 4.94 Miln/mm3 (4.50-5.90); White Blood Count 10.4 Thou/mm3 (3.8-10.6)
--- NOTE | 2025-02-05 15:25 | PC.SS ---
BASS SINGER conducted bedside contact with the patient conduct initial assessment and to discuss discharge planning.? BASS SINGER utilized nuclear medicine technician to assist with discussion.? Patient confirmed demographic information.? Patient resides at home with spouse, Gabbi Liu .? Patient utilizes a walker to assist with ambulation.? Patient does not utilize home oxygen.? Patient possesses the ability to complete ADL?s independently.? Patient?s medical surrogate decision maker is spouse, Gabbi Liu.? Patient?s PCP is Dr. Serra, [facility].? Patient does not possess any specialty providers.? Patient does not participate with dialysis.? Patient possesses a history of diabetes, insulin dependent.? Patient utilizes [facility] for medication services.? Plan is for the patient to return home at the time of discharge.? Family will provide transportation on behalf of the patient.? No further discharge needs identified by the patient.? No further intervention required at this time, social services director will be available to address any further concerns.? Next of Kin: Gabbi Liu D/C Plan: Home
[2025-02-05 15:52] LABS: Alanine Aminotransferase 8 U/L (10-49); Albumin, Serum 3.5 gm/dL (3.5-5.0); Albumin/Globulin Ratio 1.3 (1.2-2.2); Alkaline Phosphatase 87 U/L (46-116); Anion Gap 18 (7-16); Aspartate Amino Transferase 14 U/L (0-34); BUN/Creatinine Ratio 5 Ratio (12-20); Bilirubin,Total 0.2 mg/dL (0.3-1.2); Blood Urea Nitrogen 7 mg/dL (9-23); Calcium 9.2 mg/dL (8.3-10.6); Calcium (Corrected) 9.6 mg/dL (8.5-10.1); Carbon Dioxide 15.1 mMol/L (20.0-31.0); Chloride 106 mMol/L (98-107); Creatinine (Component) 1.4 mg/dL (0.6-1.3); Estimated Creatinine Clearance 71.8 mL/min (>60); Globulin 2.6 gm/dL (2.3-3.5); Glucose 264 mg/dL (74-106); Osmolality,Calculated 284 (275-295); Potassium 4.0 mMol/L (3.4-5.1); Sodium 139 mMol/L (136-145); Total Protein 6.1 gm/dL (5.7-8.2); eGFR > 60 See Note
[2025-02-05 17:07] LABS: Lactate (Lactic Acid) 1.4 mMol/L (0.4-2.0)
[2025-02-05 17:14] LABS: Beta Hydroxybutyrate 6.3 mmol/L (<0.6)
[2025-02-05 17:57] LABS: BUN/Creatinine Ratio 4 Ratio (12-20); Blood Urea Nitrogen 6 mg/dL (9-23); Calcium 9.3 mg/dL (8.3-10.6); Chloride 107 mMol/L (98-107); Creatinine (Component) 1.4 mg/dL (0.6-1.3); Estimated Creatinine Clearance 70.6 mL/min (>60); Glucose 231 mg/dL (74-106); Osmolality,Calculated 282 (275-295); Potassium 3.6 mMol/L (3.4-5.1); Sodium 139 mMol/L (136-145); eGFR > 60 See Note
[2025-02-05 17:58] LABS: Anion Gap 17 (7-16); Carbon Dioxide 15.2 mMol/L (20.0-31.0)
[2025-02-05] MEDS: PHENAZOPYRIDINE HCL 100 MG TABLET PO (18:16)
[2025-02-05] MEDS: DEXTROSE 10%-WATER 1000 ML 1,000 ML 70 ML IV (18:17)
[2025-02-05] MEDS: INSULIN LISPRO (AdmeLOG) 1 UNIT/0.01 ML UNIT SC (18:19)
[2025-02-05 19:36] LABS: HIV (1&2) Antibody Rapid Non-Reactive
[2025-02-05 20:22] LABS: Hepatitis A Antibody IgM Non Reactive (Non React); Hepatitis B Core Antibody IgM Non Reactive (Non React); Hepatitis B Surface Antigen Non Reactive (Non React); Hepatitis C Antibody Non Reactive (Non React)
[2025-02-05] MEDS: ENOXAPARIN SOD INJ 30 MG/0.3 ML SYRINGE SC (20:27)
--- NOTE | 2025-02-05 20:35 | PD.RESPRO ---
Documentation for date of: 02/05/25 Subjective Subjective Interval history: Patient was seen and examined in the ICU. Overnight, patient was admitted for concern of starvation ketoacidosis and septic shock requiring pressors. Additionally, patient had a episode of monomorphic V. tach for 6 seconds overnight. Patient reported that he had decreased appetite with difficulty swallowing and vomiting from past couple of weeks. He also reported to have suprapubic tenderness associated with left lower quadrant tenderness. He endorsed burning and dysuria. Plan is to continue Levophed with antibiotics to cover for concern for septic shock related to possible prostatitis/cystitis. Will likely evaluate patient's swallow screen tomorrow with formal speech eval and if patient needs barium swallow. Cardiology recommended to hold off on amiodarone and no further monomorphic V. tach were reported. Cheetah showed patient's cardiac index did not show improvement with passive leg raise hence not fluid responsive. Patient's beta-hydroxybutyrate went up therefore D10 was started at 70 cc/h along with repeating beta-hydroxybutyrate in the morning. Chlamydia gonorrhea testing, HIV testing were added for the morning. Will follow-up with morning labs. Exam Vital Signs Temp Pulse Resp BP Pulse Ox O2 Del Method O2 Flow Rate 99.6 F 78 27 H 99/60 98 Nasal Cannula 3 02/05/25 05:56 02/05/25 20:00 02/05/25 20:00 02/05/25 20:00 02/05/25 20:00 02/05/25 05:56 02/05/25 05:56 Narrative Exam GENERAL APPEARANCE: Patient is awake interactive a little drowsy however saturating well on room air. HEENT: NC, AT. Dry mucous membrane. EOMI, clear conjunctiva, oropharynx clear. NECK: Supple without lymphadenopathy. No stiffness or restricted ROM. HEART: Regular rate and regular rhythm, normal S1/S2, no m/r/g LUNGS: CTAB, moving air well. No crackles or wheezes are heard. ABDOMEN: Soft, suprapubic tenderness and left lower quadrant tenderness, nondistended with good bowel sounds heard. BACK: No CVAT, no obvious deformity. EXTREMITIES: Without cyanosis, clubbing or edema. Left upper extremity first phalanx amputation NEUROLOGICAL: Grossly nonfocal. Alert and oriented, moving all 4 extremities. CN not formally tested but appear grossly intact. Skin: Warm and dry without any rash. Psych: Appropriate mood and affect Objective Labs 02/06/25 04:40 02/06/25 04:40 Labs: Laboratory Results - last 24 hr 02/05/25 02/05/25 02/05/25 01:32 01:35 01:52 WBC 13.7 H RBC 5.48 Hgb 16.5 H Hct 49.7 MCV 91 MCH 30.1 MCHC 33.2 RDW Std Deviation 42.7 Plt Count 330 Neut % (Auto) 43 Lymph % (Auto) 48 [place] % (Auto) 7 Eos % (Auto) 1 Baso % (Auto) 0 Neut # (Auto) 5.9 Lymph # (Auto) 6.6 H [place] # (Auto) 0.9 H Eos # (Auto) 0.1 Baso # (Auto) 0.1 Immature Gran # (Auto) 0.15 H Absolute Nucleated RBC 0.03 H Immature Gran % 1 H Nucleated RBC % 0 Smear Path Review Sent to Pathologist ESR 66 H Puncture Site ABG pH ABG pCO2 ABG pO2 ABG HCO3 ABG O2 Saturation ABG Base Excess Oxygen Liter Flow FiO2 Sodium 140 Potassium 2.9 L Chloride 107 Carbon Dioxide 11.2 L* Anion Gap 22 H BUN 9 Creatinine 1.6 H Estim Creat Clear Calc 62.9 eGFR 52 L BUN/Creatinine Ratio 6 L Glucose [address] Glu mg/dL Hemoglobin A1c Calculated Osmolality 279 Lactic Acid 4.9 H* Calcium 10.0 Corrected Calcium 10.0 Phosphorus Magnesium 2.3 Total Bilirubin 0.4 Direct Bilirubin 0.1 AST 16 ALT 10 Alkaline Phosphatase 114 Ammonia < 10 L Total Creatine Kinase 146 Troponin I 0.022 C-Reactive Prot, Quant 1.3 H B-Natriuretic Peptide < 20 Total Protein 7.7 Albumin 4.4 Globulin 3.3 Albumin/Globulin Ratio 1.3 Amylase 199 H Lipase 342 H Folate Beta-Hydroxybutyrate/Acetoacetate 4.8 H Procalcitonin 0.16 TSH 5.89 H Free T4 Ur Collection Type Clean Catch Urine Color Colorless A Urine Clarity Clear Urine pH 6.5 Ur Specific Pike 1.017 Urine Protein 1+ A Urine Glucose (UA) 4+ A Urine Ketones 4+ A Urine Blood Trace Urine Nitrite Negative Urine Bilirubin Negative Urine Urobilinogen (Auto) Negative Ur Leukocyte Esterase Negative Urine RBC 3 Urine WBC 1 Ur Squamous Epith Cells < 1 Ur Renal Epithelial Cell < 1 Urine Bacteria None Ur Culture Indicated? Not Indicated Ur Random Sodium Ur Random Potassium Ur Random Chloride Urine Opiates Screen Negative Urine Fentanyl Screen Negative Ur Barbiturates Screen Negative U Amphetamin/Meth Scrn Negative U Benzodiazepines Scrn Negative U Cocaine Metab Screen Negative U Marijuana (THC) Screen Negative Ethyl Alcohol < 3.0 Hepatitis A IgM Ab Hep Bs Antigen Hep B Core IgM Ab Hepatitis C Antibody HIV 1&2 Antibody Rapid Influenza A (Rapid) Negative Influenza B (Rapid) Negative 02/05/25 02/05/25 02/05/25 03:43 04:30 08:20 WBC 13.6 H RBC 3.77 L Hgb 11.4 L D Hct 34.8 L D MCV 92 MCH 30.2 MCHC 32.8 RDW Std Deviation 43.8 Plt Count 212 D Neut % (Auto) 76 Lymph % (Auto) 13 [place] % (Auto) 10 Eos % (Auto) 0 Baso % (Auto) 0 Neut # (Auto) 10.3 H Lymph # (Auto) 1.8 [place] # (Auto) 1.3 H Eos # (Auto) 0.0 Baso # (Auto) 0.0 Immature Gran # (Auto) 0.19 H Absolute Nucleated RBC 0.04 H Immature Gran % 1 H Nucleated RBC % 0 Smear Path Review ESR Puncture Site Right Radial ABG pH 7.17 L* ABG pCO2 26 L ABG pO2 85 ABG HCO3 10 L ABG O2 Saturation 96 ABG Base Excess -17 L Oxygen Liter Flow 3 FiO2 21 Sodium Cancelled 139 Potassium Cancelled Chloride Cancelled Carbon Dioxide Cancelled Anion Gap Cancelled BUN Cancelled Creatinine Cancelled Estim Creat Clear Calc Cancelled eGFR Cancelled BUN/Creatinine Ratio Cancelled Glucose Cancelled Estimated Ave Glu mg/dL 286 H Hemoglobin A1c 11.6 H Calculated Osmolality Cancelled Lactic Acid Calcium Cancelled Corrected Calcium Cancelled Phosphorus Cancelled Magnesium Cancelled Total Bilirubin Direct Bilirubin AST ALT Alkaline Phosphatase Ammonia Total Creatine Kinase Troponin I C-Reactive Prot, Quant B-Natriuretic Peptide Total Protein Albumin Cancelled Globulin Albumin/Globulin Ratio Amylase Lipase Folate Beta-Hydroxybutyrate/Acetoacetate Procalcitonin TSH Free T4 Cancelled Ur Collection Type Urine Color Urine Clarity Urine pH Ur Specific Pike Urine Protein Urine Glucose (UA) Urine Ketones Urine Blood Urine Nitrite Urine Bilirubin Urine Urobilinogen (Auto) Ur Leukocyte Esterase Urine RBC Urine WBC Ur Squamous Epith Cells Ur Renal Epithelial Cell Urine Bacteria Ur Culture Indicated? Ur Random Sodium Ur Random Potassium Ur Random Chloride Urine Opiates Screen Urine Fentanyl Screen Ur Barbiturates Screen U Amphetamin/Meth Scrn U Benzodiazepines Scrn U Cocaine Metab Screen U Marijuana (THC) Screen Ethyl Alcohol Hepatitis A IgM Ab Hep Bs Antigen Hep B Core IgM Ab Hepatitis C Antibody HIV 1&2 Antibody Rapid Influenza A (Rapid) Influenza B (Rapid) 02/05/25 02/05/25 02/05/25 08:20 08:20 08:20 WBC RBC Hgb Hct MCV MCH MCHC RDW Std Deviation Plt Count Neut % (Auto) Lymph % (Auto) [place] % (Auto) Eos % (Auto) Baso % (Auto) Neut # (Auto) Lymph # (Auto) [place] # (Auto) Eos # (Auto) Baso # (Auto) Immature Gran # (Auto) Absolute Nucleated RBC Immature Gran % Nucleated RBC % Smear Path Review ESR Puncture Site ABG pH ABG pCO2 ABG pO2 ABG HCO3 ABG O2 Saturation ABG Base Excess Oxygen Liter Flow FiO2 Sodium Cancelled Potassium 2.8 L Cancelled Chloride 106 Cancelled Carbon Dioxide 12.9 L* Anion Gap BUN Creatinine Estim Creat Clear Calc eGFR BUN/Creatinine Ratio Glucose Estimated Ave Glu mg/dL Hemoglobin A1c Calculated Osmolality Lactic Acid Calcium Corrected Calcium Phosphorus Magnesium Total Bilirubin Direct Bilirubin AST ALT Alkaline Phosphatase Ammonia Total Creatine Kinase Troponin I C-Reactive Prot, Quant B-Natriuretic Peptide Total Protein Albumin Globulin Albumin/Globulin Ratio Amylase Lipase Folate Beta-Hydroxybutyrate/Acetoacetate Procalcitonin TSH Free T4 Ur Collection Type Urine Color Urine Clarity Urine pH Ur Specific Pike Urine Protein Urine Glucose (UA) Urine Ketones Urine Blood Urine Nitrite Urine Bilirubin Urine Urobilinogen (Auto) Ur Leukocyte Esterase Urine RBC Urine WBC Ur Squamous Epith Cells Ur Renal Epithelial Cell Urine Bacteria Ur Culture Indicated? Ur Random Sodium Ur Random Potassium Ur Random Chloride Urine Opiates Screen Urine Fentanyl Screen Ur Barbiturates Screen U Amphetamin/Meth Scrn U Benzodiazepines Scrn U Cocaine Metab Screen U Marijuana (THC) Screen Ethyl Alcohol Hepatitis A IgM Ab Hep Bs Antigen Hep B Core IgM Ab Hepatitis C Antibody HIV 1&2 Antibody Rapid Influenza A (Rapid) Influenza B (Rapid) 02/05/25 02/05/25 02/05/25 08:20 08:20 08:20 WBC RBC Hgb Hct MCV MCH MCHC RDW Std Deviation Plt Count Neut % (Auto) Lymph % (Auto) [place] % (Auto) Eos % (Auto) Baso % (Auto) Neut # (Auto) Lymph # (Auto) [place] # (Auto) Eos # (Auto) Baso # (Auto) Immature Gran # (Auto) Absolute Nucleated RBC Immature Gran % Nucleated RBC % Smear Path Review ESR Puncture Site ABG pH ABG pCO2 ABG pO2 ABG HCO3 ABG O2 Saturation ABG Base Excess Oxygen Liter Flow FiO2 Sodium Potassium Chloride Carbon Dioxide Cancelled Anion Gap 20 H Cancelled BUN 9 Cancelled Creatinine 1.4 H Estim Creat Clear Calc eGFR BUN/Creatinine Ratio Glucose Estimated Ave Glu mg/dL Hemoglobin A1c Calculated Osmolality Lactic Acid Calcium Corrected Calcium Phosphorus Magnesium Total Bilirubin Direct Bilirubin AST ALT Alkaline Phosphatase Ammonia Total Creatine Kinase Troponin I C-Reactive Prot, Quant B-Natriuretic Peptide Total Protein Albumin Globulin Albumin/Globulin Ratio Amylase Lipase Folate Beta-Hydroxybutyrate/Acetoacetate Procalcitonin TSH Free T4 Ur Collection Type Urine Color Urine Clarity Urine pH Ur Specific Pike Urine Protein Urine Glucose (UA) Urine Ketones Urine Blood Urine Nitrite Urine Bilirubin Urine Urobilinogen (Auto) Ur Leukocyte Esterase Urine RBC Urine WBC Ur Squamous Epith Cells Ur Renal Epithelial Cell Urine Bacteria Ur Culture Indicated? Ur Random Sodium Ur Random Potassium Ur Random Chloride Urine Opiates Screen Urine Fentanyl Screen Ur Barbiturates Screen U Amphetamin/Meth Scrn U Benzodiazepines Scrn U Cocaine Metab Screen U Marijuana (THC) Screen Ethyl Alcohol Hepatitis A IgM Ab Hep Bs Antigen Hep B Core IgM Ab Hepatitis C Antibody HIV 1&2 Antibody Rapid Influenza A (Rapid) Influenza B (Rapid) 02/05/25 02/05/25 02/05/25 08:20 08:20 08:20 WBC RBC Hgb Hct MCV MCH MCHC RDW Std Deviation Plt Count Neut % (Auto) Lymph % (Auto) [place] % (Auto) Eos % (Auto) Baso % (Auto) Neut # (Auto) Lymph # (Auto) [place] # (Auto) Eos # (Auto) Baso # (Auto) Immature Gran # (Auto) Absolute Nucleated RBC Immature Gran % Nucleated RBC % Smear Path Review ESR Puncture Site ABG pH ABG pCO2 ABG pO2 ABG HCO3 ABG O2 Saturation ABG Base Excess Oxygen Liter Flow FiO2 Sodium Potassium Chloride Carbon Dioxide Anion Gap BUN Creatinine Cancelled Estim Creat Clear Calc 71.8 Cancelled eGFR > 60 Cancelled BUN/Creatinine Ratio [address] Glu mg/dL Hemoglobin A1c Calculated Osmolality Lactic Acid Calcium Corrected Calcium Phosphorus Magnesium Total Bilirubin Direct Bilirubin AST ALT Alkaline Phosphatase Ammonia Total Creatine Kinase Troponin I C-Reactive Prot, Quant B-Natriuretic Peptide Total Protein Albumin Globulin Albumin/Globulin Ratio Amylase Lipase Folate Beta-Hydroxybutyrate/Acetoacetate Procalcitonin TSH Free T4 Ur Collection Type Urine Color Urine Clarity Urine pH Ur Specific Pike Urine Protein Urine Glucose (UA) Urine Ketones Urine Blood Urine Nitrite Urine Bilirubin Urine Urobilinogen (Auto) Ur Leukocyte Esterase Urine RBC Urine WBC Ur Squamous Epith Cells Ur Renal Epithelial Cell Urine Bacteria Ur Culture Indicated? Ur Random Sodium Ur Random Potassium Ur Random Chloride Urine Opiates Screen Urine Fentanyl Screen Ur Barbiturates Screen U Amphetamin/Meth Scrn U Benzodiazepines Scrn U Cocaine Metab Screen U Marijuana (THC) Screen Ethyl Alcohol Hepatitis A IgM Ab Hep Bs Antigen Hep B Core IgM Ab Hepatitis C Antibody HIV 1&2 Antibody Rapid Influenza A (Rapid) Influenza B (Rapid) 02/05/25 02/05/25 02/05/25 08:20 08:20 08:20 WBC RBC Hgb Hct MCV MCH MCHC RDW Std Deviation Plt Count Neut % (Auto) Lymph % (Auto) [place] % (Auto) Eos % (Auto) Baso % (Auto) Neut # (Auto) Lymph # (Auto) [place] # (Auto) Eos # (Auto) Baso # (Auto) Immature Gran # (Auto) Absolute Nucleated RBC Immature Gran % Nucleated RBC % Smear Path Review ESR Puncture Site ABG pH ABG pCO2 ABG pO2 ABG HCO3 ABG O2 Saturation ABG Base Excess Oxygen Liter Flow FiO2 Sodium Potassium Chloride Carbon Dioxide Anion Gap BUN Creatinine Estim Creat Clear Calc eGFR BUN/Creatinine Ratio Cancelled Glucose [address] H D Cancelled Estimated Ave Glu mg/dL Hemoglobin A1c Calculated Osmolality 285 Cancelled Lactic Acid 2.4 H Calcium 9.6 Corrected Calcium Phosphorus Magnesium Total Bilirubin Direct Bilirubin AST ALT Alkaline Phosphatase Ammonia Total Creatine Kinase Troponin I C-Reactive Prot, Quant B-Natriuretic Peptide Total Protein Albumin Globulin Albumin/Globulin Ratio Amylase Lipase Folate Beta-Hydroxybutyrate/Acetoacetate Procalcitonin TSH Free T4 Ur Collection Type Urine Color Urine Clarity Urine pH Ur Specific P[place] Urine Protein Urine Glucose (UA) Urine Ketones Urine Blood Urine Nitrite Urine Bilirubin Urine Urobilinogen (Auto) Ur Leukocyte Esterase Urine RBC Urine WBC Ur Squamous Epith Cells Ur Renal Epithelial Cell Urine Bacteria Ur Culture Indicated? Ur Random Sodium Ur Random Potassium Ur Random Chloride Urine Opiates Screen Urine Fentanyl Screen Ur Barbiturates Screen U Amphetamin/Meth Scrn U Benzodiazepines Scrn U Cocaine Metab Screen U Marijuana (THC) Screen Ethyl Alcohol Hepatitis A IgM Ab Hep Bs Antigen Hep B Core IgM Ab Hepatitis C Antibody HIV 1&2 Antibody Rapid Influenza A (Rapid) Influenza B (Rapid) 02/05/25 02/05/25 02/05/25 08:20 08:20 08:20 WBC RBC Hgb Hct MCV MCH MCHC RDW Std Deviation Plt Count Neut % (Auto) Lymph % (Auto) [place] % (Auto) Eos % (Auto) Baso % (Auto) Neut # (Auto) Lymph # (Auto) [place] # (Auto) Eos # (Auto) Baso # (Auto) Immature Gran # (Auto) Absolute Nucleated RBC Immature Gran % Nucleated RBC % Smear Path Review ESR Puncture Site ABG pH ABG pCO2 ABG pO2 ABG HCO3 ABG O2 Saturation ABG Base Excess Oxygen Liter Flow FiO2 Sodium Potassium Chloride Carbon Dioxide Anion Gap BUN Creatinine Estim Creat Clear Calc eGFR BUN/Creatinine Ratio Glucose Estimated Ave Glu mg/dL Hemoglobin A1c Calculated Osmolality Lactic Acid Calcium Cancelled Corrected Calcium 9.8 Cancelled Phosphorus 2.1 L Magnesium 2.6 Total Bilirubin 0.2 L Cancelled Direct Bilirubin AST 15 ALT Alkaline Phosphatase Ammonia Total Creatine Kinase Troponin I C-Reactive Prot, Quant B-Natriuretic Peptide Total Protein Albumin Globulin Albumin/Globulin Ratio Amylase Lipase Folate Beta-Hydroxybutyrate/Acetoacetate Procalcitonin TSH Free T4 Ur Collection Type Urine Color Urine Clarity Urine pH Ur Specific [place] Urine Protein Urine Glucose (UA) Urine Ketones Urine Blood Urine Nitrite Urine Bilirubin Urine Urobilinogen (Auto) Ur Leukocyte Esterase Urine RBC Urine WBC Ur Squamous Epith Cells Ur Renal Epithelial Cell Urine Bacteria Ur Culture Indicated? Ur Random Sodium Ur Random Potassium Ur Random Chloride Urine Opiates Screen Urine Fentanyl Screen Ur Barbiturates Screen U Amphetamin/Meth Scrn U Benzodiazepines Scrn U Cocaine Metab Screen U Marijuana (THC) Screen Ethyl Alcohol Hepatitis A IgM Ab Hep Bs Antigen Hep B Core IgM Ab Hepatitis C Antibody HIV 1&2 Antibody Rapid Influenza A (Rapid) Influenza B (Rapid) 02/05/25 02/05/25 02/05/25 08:20 08:20 08:20 WBC RBC Hgb Hct MCV MCH MCHC RDW Std Deviation Plt Count Neut % (Auto) Lymph % (Auto) [place] % (Auto) Eos % (Auto) Baso % (Auto) Neut # (Auto) Lymph # (Auto) [place] # (Auto) Eos # (Auto) Baso # (Auto) Immature Gran # (Auto) Absolute Nucleated RBC Immature Gran % Nucleated RBC % Smear Path Review ESR Puncture Site ABG pH ABG pCO2 ABG pO2 ABG HCO3 ABG O2 Saturation ABG Base Excess Oxygen Liter Flow FiO2 Sodium Potassium Chloride Carbon Dioxide Anion Gap BUN Creatinine Estim Creat Clear Calc eGFR BUN/Creatinine Ratio Glucose Estimated Ave Glu mg/dL Hemoglobin A1c Calculated Osmolality Lactic Acid Calcium Corrected Calcium Phosphorus Magnesium Total Bilirubin Direct Bilirubin AST Cancelled ALT 10 Cancelled Alkaline Phosphatase 92 D Cancelled Ammonia Total Creatine Kinase Troponin I C-Reactive Prot, Quant B-Natriuretic Peptide Total Protein 6.5 Albumin Globulin Albumin/Globulin Ratio Amylase Lipase Folate Beta-Hydroxybutyrate/Acetoacetate Procalcitonin TSH Free T4 Ur Collection Type Urine Color Urine Clarity Urine pH Ur Specific [place] Urine Protein Urine Glucose (UA) Urine Ketones Urine Blood Urine Nitrite Urine Bilirubin Urine Urobilinogen (Auto) Ur Leukocyte Esterase Urine RBC Urine WBC Ur Squamous Epith Cells Ur Renal Epithelial Cell Urine Bacteria Ur Culture Indicated? Ur Random Sodium Ur Random Potassium Ur Random Chloride Urine Opiates Screen Urine Fentanyl Screen Ur Barbiturates Screen U Amphetamin/Meth Scrn U Benzodiazepines Scrn U Cocaine Metab Screen U Marijuana (THC) Screen Ethyl Alcohol Hepatitis A IgM Ab Hep Bs Antigen Hep B Core IgM Ab Hepatitis C Antibody HIV 1&2 Antibody Rapid Influenza A (Rapid) Influenza B (Rapid) 02/05/25 02/05/25 02/05/25 08:20 08:20 08:20 WBC RBC Hgb Hct MCV MCH MCHC RDW Std Deviation Plt Count Neut % (Auto) Lymph % (Auto) [place] % (Auto) Eos % (Auto) Baso % (Auto) Neut # (Auto) Lymph # (Auto) [place] # (Auto) Eos # (Auto) Baso # (Auto) Immature Gran # (Auto) Absolute Nucleated RBC Immature Gran % Nucleated RBC % Smear Path Review ESR Puncture Site ABG pH ABG pCO2 ABG pO2 ABG HCO3 ABG O2 Saturation ABG Base Excess Oxygen Liter Flow FiO2 Sodium Potassium Chloride Carbon Dioxide Anion Gap BUN Creatinine Estim Creat Clear Calc eGFR BUN/Creatinine Ratio Glucose Estimated Ave Glu mg/dL Hemoglobin A1c Calculated Osmolality Lactic Acid Calcium Corrected Calcium Phosphorus Magnesium Total Bilirubin Direct Bilirubin AST ALT Alkaline Phosphatase Ammonia Total Creatine Kinase Troponin I C-Reactive Prot, Quant B-Natriuretic Peptide Total Protein Cancelled Albumin 3.8 D Cancelled Globulin Cancelled Albumin/Globulin Ratio Cancelled Amylase Lipase Folate 22.07 Beta-Hydroxybutyrate/Acetoacetate Procalcitonin TSH Free T4 1.44 Cancelled Ur Collection Type Urine Color Urine Clarity Urine pH Ur Specific [place] Urine Protein Urine Glucose (UA) Urine Ketones Urine Blood Urine Nitrite Urine Bilirubin Urine Urobilinogen (Auto) Ur Leukocyte Esterase Urine RBC Urine WBC Ur Squamous Epith Cells Ur Renal Epithelial Cell Urine Bacteria Ur Culture Indicated? Ur Random Sodium Ur Random Potassium Ur Random Chloride Urine Opiates Screen Urine Fentanyl Screen Ur Barbiturates Screen U Amphetamin/Meth Scrn U Benzodiazepines Scrn U Cocaine Metab Screen U Marijuana (THC) Screen Ethyl Alcohol Hepatitis A IgM Ab Hep Bs Antigen Hep B Core IgM Ab Hepatitis C Antibody HIV 1&2 Antibody Rapid Influenza A (Rapid) Influenza B (Rapid) 02/05/25 02/05/25 02/05/25 08:26 11:05 12:05 WBC RBC Hgb 15.6 D Hct 47.2 D MCV MCH MCHC RDW Std Deviation Plt Count Neut % (Auto) Lymph % (Auto) [place] % (Auto) Eos % (Auto) Baso % (Auto) Neut # (Auto) Lymph # (Auto) [place] # (Auto) Eos # (Auto) Baso # (Auto) Immature Gran # (Auto) Absolute Nucleated RBC Immature Gran % Nucleated RBC % Smear Path Review ESR Puncture Site ABG pH ABG pCO2 ABG pO2 ABG HCO3 ABG O2 Saturation ABG Base Excess Oxygen Liter Flow FiO2 Sodium 136 Potassium 4.5 D Chloride 105 Carbon Dioxide 13.1 L* Anion Gap 18 H BUN 7 L Creatinine 1.3 Estim Creat Clear Calc 77.4 eGFR > 60 BUN/Creatinine Ratio 5 L Glucose [address] Glu mg/dL Hemoglobin A1c Calculated Osmolality 280 Lactic Acid Cancelled Calcium 8.8 Corrected Calcium 9.2 Phosphorus 1.9 L Magnesium 2.6 Total Bilirubin Direct Bilirubin AST ALT Alkaline Phosphatase Ammonia Total Creatine Kinase Troponin I C-Reactive Prot, Quant B-Natriuretic Peptide Total Protein Albumin 3.5 Globulin Albumin/Globulin Ratio Amylase Lipase Folate Beta-Hydroxybutyrate/Acetoacetate Procalcitonin TSH Free T4 Ur Collection Type Urine Color Urine Clarity Urine pH Ur Specific [place] Urine Protein Urine Glucose (UA) Urine Ketones Urine Blood Urine Nitrite Urine Bilirubin Urine Urobilinogen (Auto) Ur Leukocyte Esterase Urine RBC Urine WBC Ur Squamous Epith Cells Ur Renal Epithelial Cell Urine Bacteria Ur Culture Indicated? Ur Random Sodium 51.7 Ur Random Potassium 10 L Ur Random Chloride 51.7 L Urine Opiates Screen Urine Fentanyl Screen Ur Barbiturates Screen U Amphetamin/Meth Scrn U Benzodiazepines Scrn U Cocaine Metab Screen U Marijuana (THC) Screen Ethyl Alcohol Hepatitis A IgM Ab Hep Bs Antigen Hep B Core IgM Ab Hepatitis C Antibody HIV 1&2 Antibody Rapid Influenza A (Rapid) Influenza B (Rapid) 02/05/25 02/05/25 15:11 16:55 WBC 10.4 RBC 4.94 Hgb 14.7 Hct 44.9 MCV 91 MCH 29.8 MCHC 32.7 RDW Std Deviation 44.2 H Plt Count 237 Neut % (Auto) 63 Lymph % (Auto) 25 [place] % (Auto) 9 Eos % (Auto) 0 Baso % (Auto) 1 Neut # (Auto) 6.6 Lymph # (Auto) 2.6 [place] # (Auto) 1.0 H Eos # (Auto) 0.0 Baso # (Auto) 0.1 Immature Gran # (Auto) 0.14 H Absolute Nucleated RBC 0.02 H Immature Gran % 1 H Nucleated RBC % 0 Smear Path Review ESR Puncture Site ABG pH ABG pCO2 ABG pO2 ABG HCO3 ABG O2 Saturation ABG Base Excess Oxygen Liter Flow FiO2 Sodium 139 139 Potassium 4.0 D 3.6 Chloride 106 107 Carbon Dioxide 15.1 L 15.2 L Anion Gap 18 H 17 H BUN 7 L 6 L Creatinine 1.4 H 1.4 H Estim Creat Clear Calc 71.8 70.6 eGFR > 60 > 60 BUN/Creatinine Ratio 5 L 4 L Glucose [address] Glu mg/dL Hemoglobin A1c Calculated Osmolality 284 282 Lactic Acid 1.5 1.4 Calcium 9.2 9.3 Corrected Calcium 9.6 Phosphorus Magnesium Total Bilirubin 0.2 L Direct Bilirubin AST 14 ALT 8 L Alkaline Phosphatase 87 Ammonia Total Creatine Kinase Troponin I C-Reactive Prot, Quant B-Natriuretic Peptide Total Protein 6.1 Albumin 3.5 Globulin 2.6 Albumin/Globulin Ratio 1.3 Amylase Lipase Folate Beta-Hydroxybutyrate/Acetoacetate 6.3 H Procalcitonin TSH Free T4 Ur Collection Type Urine Color Urine Clarity Urine pH Ur Specific [place] Urine Protein Urine Glucose (UA) Urine Ketones Urine Blood Urine Nitrite Urine Bilirubin Urine Urobilinogen (Auto) Ur Leukocyte Esterase Urine RBC Urine WBC Ur Squamous Epith Cells Ur Renal Epithelial Cell Urine Bacteria Ur Culture Indicated? Ur Random Sodium Ur Random Potassium Ur Random Chloride Urine Opiates Screen Urine Fentanyl Screen Ur Barbiturates Screen U Amphetamin/Meth Scrn U Benzodiazepines Scrn U Cocaine Metab Screen U Marijuana (THC) Screen Ethyl Alcohol Hepatitis A IgM Ab Non Reactive Hep Bs Antigen Non Reactive Hep B Core IgM Ab Non Reactive Hepatitis C Antibody Non Reactive HIV 1&2 Antibody Rapid Non-Reactive Influenza A (Rapid) Influenza B (Rapid) ABG Interpretation ABG results: 02/05/25 03:43 ABG pH 7.17 L* ABG pCO2 26 L ABG pO2 85 ABG HCO3 10 L ABG O2 Saturation 96 ABG Base Excess -17 L Quality Measures Quality Measures VTE prophylaxis (Lovenox) Assessment & Plan Assessment Current Active Medications: Generic Name Dose Route Start Last Admin Trade Name Freq PRN Reason Stop Dose Admin Acetaminophen 1,000 mg 02/05/25 05:13 Acetaminophen 500 Mg Tablet PO 03/07/25 05:14 Q6H PRN fever >99.9 Dextrose 25 ml 02/05/25 12:45 Dextrose 50%-Water Inj 50 Ml Syringe IV 03/07/25 12:44 Q15MIN PRN BG 50-70 responsive npo pt Dextrose 50 ml 02/05/25 12:45 Dextrose 50%-Water Inj 50 Ml Syringe IV 03/07/25 12:44 Q15MIN PRN BG <50 OR BG <70 & pt unresponsive Doxycycline Hyclate 100 mg 02/05/25 10:45 02/05/25 20:27 Doxycycline 100 Mg Tablet PO 02/12/25 10:44 100 mg BID ANGÉLICA Administration Enoxaparin Sodium 30 mg 02/05/25 21:00 02/05/25 20:27 Enoxaparin Sod Inj 30 Mg/0.3 Ml Syringe SC 02/19/25 20:59 30 mg QPM NAGÉLICA Administration Famotidine 20 mg 02/05/25 09:00 02/05/25 20:27 Famotidine Inj 10 Mg/Ml Vial 2 Ml IVP 03/07/25 08:59 20 mg BID ANGÉLICA Administration Glucagon 1 mg 02/05/25 12:45 Glucagon Inj 1 Mg Vial IM Q15MIN PRN BG <70, and no IV access Norepinephrine/Dextrose 8 mg in 250 mls @ 9.993 mls/hr 02/05/25 01:38 02/05/25 20:00 Levophed In D5w 8mg/250ml IV 03/07/25 01:37 0.03 mcg/kg/min .Q24H PRN 5.996 mls/hr PER PROTOCOL Titration Protocol 0.05 MCG/KG/MIN Cefepime HCl 1 gm/ Sodium 50 mls @ 100 mls/hr 02/05/25 05:49 02/05/25 19:52 Chloride IV 02/12/25 05:48 Not Given Q8HR ANGÉLICA Dextrose 1,000 mls @ 70 mls/hr 02/05/25 17:30 02/05/25 18:17 D10w 1000 Ml IV 02/06/25 22:04 70 mls/hr .[id number] ANGÉLICA Administration Insulin Human Lispro 0 unit 02/05/25 17:00 02/05/25 18:19 Insulin Lispro (Admelog) 1 Unit/0.01 Ml Unit SC 03/07/25 16:59 3 unit AC ANGÉLICA Administration Protocol Phenazopyridine HCl 100 mg 02/06/25 08:00 Phenazopyridine Hcl 100 Mg Tablet PO 02/07/25 17:31 TIDWM ANGÉLICA Plan Patient is a 54-year-old male admitted for starvation ketoacidosis and septic shock requiring pressors. NEURO #Acute metabolic encephalopathy -resolved Dx: - Ammonia <10 - Likely in the setting of ketoacidosis, pH 7.17 and bicarb 11.2 - on admission, patient was AO x 4, slightly drowsy Rx: - Anticipate improvement in mentation with fluids and electrolyte repletion CVS #Monomorphic V.Tach --> sinus Dx Repeat EKG in the morning showed QTc 479 with sinus rhythm Rx - IV Amiodarone was giveb and no repeat episode noted and hemodialysis patient care specialist recommended to discontinue amiodarone -monitor electrolytes closely - Keep magnesium above 2 and potassium above 4 - Continuous monitoring for chest pain or discomfort along with teletypesetter monitor - Follow-up with formal echo - QTc was prolonged on EKG/ avoid QTc prolonging agent #Shock Likely Distributive vs. hypovolemic Dx: - Blood pressure 70s/40s initially--> 120s/60s after Levophed - No prior history of shock - LA 4.9 on admission, ESR 66 and CRP 1.3 - Likely in the setting of acute ketoacidosis and lactic acidosis, no overt signs of infection. Patient is afebrile - Patient apparently had a 6 sec sustained VTach - ProCal negative Rx: - Continue Levophed 0.19 in the ED, titrate down as tolerated with MAP of 65 - Continue D10 at 70 cc/h considering patient has decreased p.o. intake - Will follow-up with lactic acid in the morning - Monitoring SVO2 with VBG's - Treating underlying infection with antibiotics Resp No active issue ENDO #T2 IDDM #Starvation ketoacidosis #DKA, less likely Dx: - History of type 2 insulin-dependent diabetes. - Home medication: Jardiance 25 mg daily, metformin 1 g twice daily, insulin Levemir, insulin regular -A1c 11.6 -Folate levels: 22.07. BHB: 4.8 --->6.3 Rx: - Insulin drip was discontinued as most likely cause of ketoacidosis is likely starvation ketoacidosis and less likely DKA - Continue dextrose 10% at 70 cc/h - Follow-up with lactic acid + BHB in a.m and BMP every 4 hourly -Per speech eval's: Patient is able to participate in eating activity. Demonstrating slow but functional rotatory jaw grading and lingual sweeps with soft minced food items. No signs and symptoms of laryngeal penetration or vocal congestion. No coughing. Per recommendations: Continue minced diet until mentation is baseline due to lack of dentition and slow mgt. Advance as tolerated. -- Pending thiamine level - Replete electrolytes as necessary - Hypoglycemia protocol in place - Referral to registered dietitian. - Health equity referral for safety, knowledge deficit - Advisable to prescribe continuous glucose monitor on discharge #Subclinical hypothyroidism Dx: -TSH: 5.89, free T4: 1.44 Rx: -Outpatient follow-up PULM No active problems ID #Symptomatic UTI versus prostatitis Dx: Patient endorses dysuria for the last 3-4 days UA negative for nitrates, esterase and no bacteria. Suprapubic tenderness with left lower quadrant tenderness. CT abdomen showed cystitis with bladder wall thickening. Rx: -Continue with IV antibiotics including cefepime, doxycycline -Phenazopyridine for burning during urination - Follow-up with urine cultures, chlamydia gonorrhea testing and HIV RENAL #Anion gap metabolic acidosis with NAGMA with appropriate respiratory compensation #? Distal RTA #Prerenal LILIANA # Hypokalemia #Hypophosphatemia Dx: - On admission, K 2.9, BHB 4.8 , Glucose 121, anion gap 22, lactic acid 4.9 -02/05: Bhatia formula: pco2: 26-30 Delta gap:0.8 -Urine electrolytes showed positive anion gap. Rx: - In total, 60 mEq p.o. and 40 mill EQ IV KCl given x 1 - BMP every 4 hourly - Will likely consider Bicitra if bicarb does not improve - Avoid nephrotoxic agents GI/Hep/ #Concern for UTI/prostatitis Dx: -Patient endorsed burning sensation during urination and left lower quadrant tenderness. He has been having decreased p.o. intake with difficulty swallowing. - Of note, amylase 199, lipase 342 -CT abdomen showed bladder wall thickening/cystitis. -Elevated CRP and ESR Rx: - Continue antibiotics and continue phenazopyridine for urinary analgesia - Follow-up blood cultures and urine culture - Follow-up with STD panel and HIV #Concern for oropharyngeal dysphagia,resolved #Decreased p.o. intake Dx: -Patient has been having difficulty swallowing as well as decreased p.o. intake. Rx: -Per speech eval's: Patient is able to participate in eating activity. Demonstrating slow but functional rotatory jaw grading and lingual sweeps with soft minced food items. No signs and symptoms of laryngeal penetration or vocal congestion. No coughing. Per recommendations: Continue minced diet until mentation is baseline due to lack of dentition and slow mgt. Advance as tolerated. -Continue dextrose 10% and replete electrolytes as necessary HEME/ONC #Leukocytosis, likely reactive,resolved #Hemoconcentration,resolved Dx: - WBC 13.7--> 10.4, Hb 16.5--> 14.7 Rx: - Continue IVF hydration -Monitor for signs of infection and fever ICU Health maintenance: Dispo: Admit to ICU for starvation ketoacidosis and distributive shock requiring pressors. Diet: Carb consistent diet DVT ppx: Enoxaparin 40mg SC daily GI ppx: Famotidine 20 mg twice daily IV lines: 2 pIV Code status: FULL CODE Patient was seen and discussed with ICU attending, Dr. Matt Rae MD, PGY 3 Attending Provider Attestation/Addendum Patient seen and examined. Case discussed with resident team. In brief this a 54-year-old male admitted to the ICU for ketoacidosis. It is unclear if it is a diabetic ketoacidosis versus starvation ketoacidosis. At this point in time it is being treated as a starvation ketoacidosis since he has not had any p.o. intake for greater than a week he says. On exam he is awake alert and oriented, lungs clear to auscultation bilaterally, heart regular and rhythmic, no gross murmurs, no increased work of breathing, abdomen is soft there is point tenderness in the left lower quadrant/suprapubic area, there is no rebound or guarding, trace edema bilateral lower extremities. He has been started on a p.o. diet. He also had undifferentiated shock with unclear etiology. On arrival he had a lactic acidosis as well as a positive beta hydroxy. His CT imaging was nonspecific. Cheetah was performed for additional hemodynamics he did not appear to be fluid responsive. Repeat beta hydroxy was obtained later in the day and was noted to be higher therefore he was started on a D10 drip running at 70 cc an hour working under the presumption that this is a starvation ketoacidosis. Will obtain labs and continue to follow. Labs, imaging and records reviewed Case discussed with ICU team Approximately 43 critical care minutes required for evaluation, exam, review, intervention, discussion formulation of plan of care for this critically ill patient with undifferentiated shock and ketoacidosis.
--- NOTE | 2025-02-05 22:09 | EVENTNT_ITS ---
Documentation for date of: 02/05/25 Event Note Event Note: 22:00 Phos 1.9 at 12:03 PM , no repletion noted. Likely due to poor nutritional intake. Will give Neutra Phos x2 packets. BHB continues to trend up 4.8 -> 6.3 ; Patient is consuming <15% of his meals. He endorses discomfort on swallowing - day team asked to work up for dysphagia. Will place Speech referral. Diet changed to dyaphagia 1 for now. Patient requests more broth/soups, added that as a diet request. Recommend activities assistant follow up as well as poor appetite. Will order Ensure protein drinks for supplementation. - Satish Hawkins M.D. PGY3 Disclaimer: Minor errors in payroll accounting manager may be present as this note was dictated using voice recognition software.
[2025-02-05] MEDS: CEFEPIME INJ 1 GM in SODIUM CHLORIDE 0.9% (Popper) 50 ML IV (22:15)
[2025-02-05] MEDS: NAPH,KPH MBDB 1 PACKET (1.5 GM) 2 PACKET PO (22:56)
[2025-02-05 23:54] LABS: Anion Gap 18 (7-16); BUN/Creatinine Ratio 4 Ratio (12-20); Blood Urea Nitrogen 6 mg/dL (9-23); Calcium 9.2 mg/dL (8.3-10.6); Chloride 104 mMol/L (98-107); Creatinine (Component) 1.5 mg/dL (0.6-1.3); Estimated Creatinine Clearance 65.9 mL/min (>60); Glucose 358 mg/dL (74-106); Osmolality,Calculated 285 (275-295); Potassium 4.2 mMol/L (3.4-5.1); Sodium 137 mMol/L (136-145); eGFR 56 See Note
[2025-02-06] VITALS (105 sets, daily range): BP systolic 65–161; BP diastolic 43–104; PULSE 78–120; RESP 12–35; TEMP 36.1–37.7; O2SAT 94–100; BMI 36.8
[2025-02-06 00:05] LABS: Carbon Dioxide 14.6 mMol/L (20.0-31.0)
--- NOTE | 2025-02-06 01:07 | EKG_ITS ---
[facility] Test Date: 2025-02-06 Pat Name: GT Brodypartment: Room: S258A Gender: Male Rail Engineer: SHALONDA : 1970 Requested By: Satish Hawkins Order Number: [id number] Reading MD: Satish Hawkins Measurements Intervals [place] Rate: 86 P: 26 NE: 142 QRS: -24 QRSD: 97 T: -27 QT: 383 QTc: 459 Interpretive Statements SINUS RHYTHM BORDERLINE LEFT AXIS DEVIATION MINIMAL ST DEPRESSION Compared to ECG 02/05/2025 09:00:34 ST (T wave) deviation now present T-wave abnormality no longer present Prolonged QT interval no longer present /store/S0/[id number]/[id number].pdf
[2025-02-06] MEDS: METOCLOPRAMIDE INJ 5 MG/ML VIAL 2 ML IVP ×4 (01:38→18:15)
[2025-02-06 03:19] LABS: Anion Gap 19 (7-16); BUN/Creatinine Ratio 4 Ratio (12-20); Blood Urea Nitrogen 6 mg/dL (9-23); Calcium 8.8 mg/dL (8.3-10.6); Chloride 102 mMol/L (98-107); Creatinine (Component) 1.4 mg/dL (0.6-1.3); Estimated Creatinine Clearance 70.6 mL/min (>60); Osmolality,Calculated 292 (275-295); Potassium 3.4 mMol/L (3.4-5.1); Sodium 135 mMol/L (136-145); eGFR > 60 See Note
[2025-02-06 03:42] LABS: Carbon Dioxide 13.7 mMol/L (20.0-31.0)
[2025-02-06 03:43] LABS: Glucose 542 mg/dL (74-106)
--- NOTE | 2025-02-06 04:16 | PD.RESEVENT ---
Documentation for date of: 02/06/25 Event Note Event Note: 0415 BMP : Glucose 542, Bicarb 14.6 -> 13.7 and AG 18 -> 19 Patient had soup and noodles later on in the night as per RN Regular Insulin 10U IV x1 KCL 40mEq ordered for repletion (K 3.4) Ordered ABG stat, will follow up Changed sliding scale to Step 3 Q6 for persistently elevated blood glucose Will get Q2H bedside fingerstick checks as labile glucose levels Next BMP draw at 6-6:30 - Satish Hawkins M.D. PGY3 Disclaimer: Minor errors in sustainability purchasing agent may be present as this note was dictated using voice recognition software.
[2025-02-06] MEDS: RINGERS LACTATED 500 ML 500 ML 999 ML IV ×3 (04:21→10:30)
[2025-02-06] MEDS: INSULIN HUM REGULAR 1 UNIT/0.01 ML (PER UNIT) 10 UNIT IV (04:21)
[2025-02-06] MEDS: POTASSIUM CHLORIDE 10% 20 MEQ/15 ML UDC 40 MEQ PO (04:21)
[2025-02-06 05:06] LABS: Beta Hydroxybutyrate 5.6 mmol/L (<0.6)
[2025-02-06 05:43] LABS: Base Excess, Venous -15 (-3-3); O2 Saturation, Venous 75 % (96-97); PCO2, Venous 27 mmHg (36-56); PO2, Venous 38 mmHg (15-58); pH, Venous 7.23 (7.33-7.66)
[2025-02-06 05:53] LABS: Basophils # (Auto) 0.0 Thou/mm3 (0.0-0.2); Basophils % (Auto) 0 % (0-2.5); Eosinophils # (Auto) 0.0 Thou/mm3 (0.0-0.5); Eosinophils % (Auto) 1 % (0-10); Hematocrit 38.7 % (41.0-53.0); Hemoglobin 12.7 g/dL (13.5-16.0); Immature Granulocytes Auto 0.05 Thou/mm3 (0.00-0.00); Lymphocytes # (Auto) 1.6 Thou/mm3 (1.0-4.8); Lymphocytes % (Auto) 20 % (10-50); Mean Corpuscular HGB Conc 32.8 g/dl (31.0-37.0); Mean Corpuscular Hemoglobin 30.3 pg (25.0-35.0); Mean Corpuscular Volume 92 fL (80-100); Monocytes # (Auto) 0.5 Thou/mm3 (0.0-0.8); Monocytes % (Auto) 6 % (0-12); Neutrophils # (Auto) 5.8 Thou/mm3 (1.8-7.7); Neutrophils % (Auto) 72 % (37-80); Nucleated Red Blood Cell # 0.00 Thou/mm3 (0.00-0.00); Nucleated Red Blood Cell % 0 /100 WBC (0); Platelet Count 178 Thou/mm3 (140-440); RDW Standard Deviation 45.6 fL (35.1-43.9); Red Blood Count 4.19 Miln/mm3 (4.50-5.90); White Blood Count 8.0 Thou/mm3 (3.8-10.6)
[2025-02-06] MEDS: INSULIN LISPRO (AdmeLOG) 1 UNIT/0.01 ML UNIT SC (05:57)
[2025-02-06] MEDS: CEFEPIME INJ 1 GM in SODIUM CHLORIDE 0.9% (Popper) 50 ML IV ×3 (05:58→21:33)
[2025-02-06] MEDS: LACTULOSE SYRUP 20 GM/30 ML UDC PO (05:58)
[2025-02-06 06:43] LABS: Anion Gap 20 (7-16); BUN/Creatinine Ratio 7 Ratio (12-20); Blood Urea Nitrogen 6 mg/dL (9-23); Calcium 8.6 mg/dL (8.3-10.6); Chloride 106 mMol/L (98-107); Creatinine (Component) 0.9 mg/dL (0.6-1.3); Estimated Creatinine Clearance 109.9 mL/min (>60); Glucose 215 mg/dL (74-106); Magnesium 1.6 mg/dL (1.6-2.6); Osmolality,Calculated 277 (275-295); Phosphorous 1.5 mg/dL (2.4-5.1); Potassium 3.3 mMol/L (3.4-5.1); Sodium 137 mMol/L (136-145); eGFR > 60 See Note
[2025-02-06 06:45] LABS: Carbon Dioxide 10.9 mMol/L (20.0-31.0)
--- NOTE | 2025-02-06 08:35 | XR_ITS ---
EXAMINATION: AP chest single view TECHNIQUE: AP portable upright chest single view Date and time: February 06, 2025, 0944 hours, comparison February 05, 2025 INDICATIONS: Cough and congestion shortness of breath this week FINDINGS: Atelectasis versus pneumonia left base Right lung clear Normal heart size IMPRESSION: Atelectasis versus early pneumonia left base
[2025-02-06] MEDS: FAMOTIDINE INJ 10 MG/ML VIAL 2 ML 20 MG IVP ×2 (08:49→20:36)
[2025-02-06] MEDS: DOXYCYCLINE 100 MG TABLET PO ×2 (08:50→20:36)
[2025-02-06] MEDS: MG HYD/AL HYD/SIME (Maalox Reg) SUSP 30 ML UDC PO (08:50)
[2025-02-06] MEDS: INSULIN REG 100 UNITS/100 ML 100 UNIT in PRE-MIXED 1 BAG 10.659 UNIT IV (09:17)
[2025-02-06] MEDS: POT PHOS 15 mMol in NS 250 ML 15 MMOL/250 ML BAG 62.5 MMOL IV ×2 (09:19→12:15)
[2025-02-06] MEDS: RINGERS LACTATED 1000 ML 1,000 ML 250 ML IV (09:26)
[2025-02-06] MEDS: Norepinephrine/D5W 8mg/250ml 8 MG/250 ML BAG 9.993 MG IV (09:41)
[2025-02-06 09:57] LABS: Chlamydia trachomatis PCR Negative (Not Detect); Neisseria Gonorrhoeae DNA PCR Negative (Not Detect); Trichomonas Negative (Negative)
[2025-02-06 10:07] LABS: Lactate (Lactic Acid) 1.4 mMol/L (0.4-2.0)
[2025-02-06] MEDS: Magnesium Sulfate 2 GM Ivpb 2 GM/50 ML BAG IV (10:18)
[2025-02-06] MEDS: PHENAZOPYRIDINE HCL 100 MG TABLET PO ×2 (10:23→18:15)
[2025-02-06] MEDS: LACTULOSE SYRUP 20 GM/30 ML UDC 40 GM PO (10:34)
[2025-02-06] MEDS: MIDODRINE 5 MG TABLET PO (10:34)
[2025-02-06] MEDS: CITRIC ACID/SODIUM CITR 15 ML UDC (BICITRA) 30 ML PO ×2 (10:35→20:36)
--- NOTE | 2025-02-06 10:41 | PD.RESPRO ---
Documentation for date of: 02/06/25 Subjective Subjective Interval history: Patient was seen and assessed at bedside. Has no complaints this morning except feeling thirsty. Denies chest pain, shortness of breath, palpitations. BP 161/104 this morning, systolic dropped to 70 around 4 AM but improved to 90s to 100s the rest of the night. Very inconsistent blood pressures. Patient was discontinued from amiodarone drip but restarted on Levophed, decrease as tolerated. Patient is in sinus rhythm on telemetry, no more episodes of monomorphic vtach observed. WBC, hemoglobin, platelet count are all decreased from yesterday, likely secondary to aggressive volume repletion with potassium chloride. Potassium decreased back to 3.3 (from 3.4 yesterday and 4.2 today prior). Magnesium 1.5 phosphorus 1.5, recommend aggressive repletion. Of note, bicarb has also significantly decreased since yesterday (14.6> 13.7> 10.9> 11.8) with widening anion gap. Creatinine 0.9 (from 1.4). Exam Vital Signs Temp Pulse Resp BP Pulse Ox O2 Del Method O2 Flow Rate 97.3 F 90 19 116/69 98 Nasal Cannula 3 02/06/25 00:00 02/06/25 10:34 02/06/25 01:01 02/06/25 10:34 02/06/25 06:30 02/05/25 05:56 02/05/25 05:56 Narrative Exam Physical Exam General: Awake and in no acute distress. Conversational and non-toxic appearing. Obese Japanese speaking male. HEENT: Normocephalic, atraumatic, mucous membranes moist. Heart: Regular rate and rhythm, normal S1 and S2, no murmurs appreciated. Lungs: Clear to auscultation with no wheezing or crackles. Abdomen: Soft, nondistended, nontender, positive bowel sounds. No guarding or rebound tenderness. Neurologic: Alert and oriented x3, no gross neurological deficit, and patient able to move all 4 extremities. Extremities: No edema. Left thumb amputation. Skin: No rash or ecchymoses. Objective Labs 02/06/25 04:40 02/07/25 00:58 Labs: Laboratory Results - last 24 hr 02/05/25 02/05/25 02/05/25 01:52 11:05 12:05 WBC RBC Hgb Hct MCV MCH MCHC RDW Std Deviation Plt Count Neut % (Auto) Lymph % (Auto) [place] % (Auto) Eos % (Auto) Baso % (Auto) Neut # (Auto) Lymph # (Auto) [place] # (Auto) Eos # (Auto) Baso # (Auto) Immature Gran # (Auto) Absolute Nucleated RBC Immature Gran % Nucleated RBC % VBG pH VBG pCO2 VBG pO2 VBG O2 Sat (Nicole) VBG Base Excess Sodium 136 Potassium 4.5 D Chloride 105 Carbon Dioxide 13.1 L* Anion Gap 18 H BUN 7 L Creatinine 1.3 Estim Creat Clear Calc 77.4 eGFR > 60 BUN/Creatinine Ratio 5 L Glucose 288 H Calculated Osmolality 280 Lactic Acid Cancelled Calcium 8.8 Corrected Calcium 9.2 Phosphorus 1.9 L Magnesium 2.6 Total Bilirubin AST ALT Alkaline Phosphatase Total Protein Albumin 3.5 Globulin Albumin/Globulin Ratio Beta-Hydroxybutyrate/Acetoacetate Ur Random Sodium 51.7 Ur Random Potassium 10 L Ur Random Chloride 51.7 L Chlam trachomat DNA PCR Negative Hepatitis A IgM Ab Hep Bs Antigen Hep B Core IgM Ab Hepatitis C Antibody HIV 1&2 Antibody Rapid N.gonorrhoeae DNA (PCR) Negative Trichomonas DNA Probe Negative 02/05/25 02/05/25 02/05/25 15:11 16:55 23:31 WBC 10.4 RBC 4.94 Hgb 14.7 Hct 44.9 MCV 91 MCH 29.8 MCHC 32.7 RDW Std Deviation 44.2 H Plt Count 237 Neut % (Auto) 63 Lymph % (Auto) 25 [place] % (Auto) 9 Eos % (Auto) 0 Baso % (Auto) 1 Neut # (Auto) 6.6 Lymph # (Auto) 2.6 [place] # (Auto) 1.0 H Eos # (Auto) 0.0 Baso # (Auto) 0.1 Immature Gran # (Auto) 0.14 H Absolute Nucleated RBC 0.02 H Immature Gran % 1 H Nucleated RBC % 0 VBG pH VBG pCO2 VBG pO2 VBG O2 Sat (Nicole) VBG Base Excess Sodium 139 139 137 Potassium 4.0 D 3.6 4.2 D Chloride 106 107 104 Carbon Dioxide 15.1 L 15.2 L 14.6 L* Anion Gap 18 H 17 H 18 H BUN 7 L 6 L 6 L Creatinine 1.4 H 1.4 H 1.5 H Estim Creat Clear Calc 71.8 70.6 65.9 eGFR > 60 > 60 56 L BUN/Creatinine Ratio 5 L 4 L 4 L Glucose 264 H 231 H 358 H D Calculated Osmolality 284 282 285 Lactic Acid 1.5 1.4 Calcium 9.2 9.3 9.2 Corrected Calcium 9.6 Phosphorus Magnesium Total Bilirubin 0.2 L AST 14 ALT 8 L Alkaline Phosphatase 87 Total Protein 6.1 Albumin 3.5 Globulin 2.6 Albumin/Globulin Ratio 1.3 Beta-Hydroxybutyrate/Acetoacetate 6.3 H Ur Random Sodium Ur Random Potassium Ur Random Chloride Chlam trachomat DNA PCR Hepatitis A IgM Ab Non Reactive Hep Bs Antigen Non Reactive Hep B Core IgM Ab Non Reactive Hepatitis C Antibody Non Reactive HIV 1&2 Antibody Rapid Non-Reactive N.gonorrhoeae DNA (PCR) Trichomonas DNA Probe 02/06/25 02/06/25 02/06/25 02:20 04:40 09:45 WBC 8.0 RBC 4.19 L Hgb 12.7 L D Hct 38.7 L MCV 92 MCH 30.3 MCHC 32.8 RDW Std Deviation 45.6 H Plt Count 178 D Neut % (Auto) 72 Lymph % (Auto) 20 [place] % (Auto) 6 Eos % (Auto) 1 Baso % (Auto) 0 Neut # (Auto) 5.8 Lymph # (Auto) 1.6 [place] # (Auto) 0.5 Eos # (Auto) 0.0 Baso # (Auto) 0.0 Immature Gran # (Auto) 0.05 H Absolute Nucleated RBC 0.00 Immature Gran % 1 H Nucleated RBC % 0 VBG pH 7.23 L VBG pCO2 27 L VBG pO2 38 VBG O2 Sat (Nicole) 75 L VBG Base Excess -15 L Sodium 135 L 137 Potassium 3.4 D 3.3 L Chloride 102 106 Carbon Dioxide 13.7 L* 10.9 L* Anion Gap 19 H 20 H BUN 6 L 6 L Creatinine 1.4 H 0.9 D Estim Creat Clear Calc 70.6 109.9 eGFR > 60 > 60 BUN/Creatinine Ratio 4 L 7 L Glucose 542 H* D 215 H D Calculated Osmolality 292 277 Lactic Acid 1.4 Calcium 8.8 8.6 Corrected Calcium Phosphorus 1.5 L Magnesium 1.6 Total Bilirubin AST ALT Alkaline Phosphatase Total Protein Albumin Globulin Albumin/Globulin Ratio Beta-Hydroxybutyrate/Acetoacetate 5.6 H Ur Random Sodium Ur Random Potassium Ur Random Chloride Chlam trachomat DNA PCR Hepatitis A IgM Ab Hep Bs Antigen Hep B Core IgM Ab Hepatitis C Antibody HIV 1&2 Antibody Rapid N.gonorrhoeae DNA (PCR) Trichomonas DNA Probe ABG Interpretation ABG results: 02/05/25 02/06/25 03:43 04:40 ABG pH 7.17 L* ABG pCO2 26 L ABG pO2 85 ABG HCO3 10 L ABG O2 Saturation 96 ABG Base Excess -17 L VBG pH 7.23 L VBG pCO2 27 L VBG pO2 38 VBG Base Excess -15 L Quality Measures Quality Measures VTE prophylaxis (Lovenox) Assessment & Plan Assessment Current Active Medications: Generic Name Dose Route Start Last Admin Trade Name Freq PRN Reason Stop Dose Admin Acetaminophen 1,000 mg 02/05/25 05:13 Acetaminophen 500 Mg Tablet PO 03/07/25 05:14 Q6H PRN fever >99.9 Citric Acid/Sodium Citrate 30 ml 02/06/25 09:45 02/06/25 10:35 Citric Acid/Sodium Citr 15 Ml Udc (Bicitra) PO 03/08/25 09:44 30 ml BID ANGÉLICA Administration Dextrose 25 ml 02/05/25 12:45 Dextrose 50%-Water Inj 50 Ml Syringe IV 03/07/25 12:44 On Hold: 02/06/25 08:48 Q15MIN PRN Comment: IV INSULIN INFUSION BG 50-70 responsive npo pt ACTIVE. Dextrose 50 ml 02/05/25 12:45 Dextrose 50%-Water Inj 50 Ml Syringe IV 03/07/25 12:44 On Hold: 02/06/25 08:48 Q15MIN PRN Comment: IV INSULIN INFUSION BG <50 OR BG <70 & pt unresponsive ACTIVE. Dextrose 25 ml 02/06/25 08:35 Dextrose 50%-Water Inj 50 Ml Syringe IV [id number] PRN Blood Sugar - Low Doxycycline Hyclate 100 mg 02/05/25 10:45 02/06/25 08:50 Doxycycline 100 Mg Tablet PO 02/12/25 10:44 100 mg BID ANGÉLICA Administration Enoxaparin Sodium 30 mg 02/05/25 21:00 02/05/25 20:27 Enoxaparin Sod Inj 30 Mg/0.3 Ml Syringe SC 02/19/25 20:59 30 mg QPM ANGÉLICA Administration Famotidine 20 mg 02/05/25 09:00 02/06/25 08:49 Famotidine Inj 10 Mg/Ml Vial 2 Ml IVP 03/07/25 08:59 20 mg BID ANGÉLICA Administration Glucagon 1 mg 02/05/25 12:45 Glucagon Inj 1 Mg Vial IM Q15MIN PRN BG <70, and no IV access Norepinephrine/Dextrose 8 mg in 250 mls @ 9.993 mls/hr 02/05/25 01:38 02/06/25 09:41 Levophed In D5w 8mg/250ml IV 03/07/25 01:37 0.05 mcg/kg/min .Q24H PRN 9.993 mls/hr PER PROTOCOL Administration Protocol 0.05 MCG/KG/MIN Cefepime HCl 1 gm/ Sodium 50 mls @ 100 mls/hr 02/05/25 05:49 02/06/25 05:58 Chloride IV 02/12/25 05:48 100 mls/hr Q8HR ANGÉLICA Administration Dextrose 1,000 mls @ 70 mls/hr 02/05/25 17:30 02/05/25 18:17 D10w 1000 Ml IV 02/06/25 22:04 70 mls/hr .[id number] ANGÉLICA Administration Potassium Phosphate 15 mmol in 250 mls @ 62.5 mls/hr 02/06/25 07:54 02/06/25 09:19 Pot Phos 15 Mmol In Ns 250 Ml IV 02/06/25 11:53 62.5 mls/hr X1 ONE Administration Potassium Phosphate 15 mmol in 250 mls @ 62.5 mls/hr 02/06/25 07:56 Pot Phos 15 Mmol In Ns 250 Ml IV 02/06/25 11:55 X1 ONE Potassium Chloride 10 meq in 100 mls @ 100 mls/hr 02/06/25 08:35 Kcl Ivpb IV 03/08/25 08:34 .Q1H PRN IF POTASSIUM LESS THAN 3.3 Magnesium Sulfate 2 gm in 50 mls @ 25 mls/hr 02/06/25 08:35 Magnesium Sulfate Ivpb IV 03/08/25 08:34 .Q2H PRN PER DKA PROTOCOL Insulin Human Regular 100 unit 100 mls @ 10.659 mls/hr 02/06/25 08:35 02/06/25 10:00 / IV Miscellaneous Supplies IV 03/08/25 08:34 0.1 unit/kg/hr .Q9H23M PRN 10.659 mls/hr PER PROTOCOL Titration Protocol 0.1 UNIT/KG/HR Dextrose/Lactated Ringer's 1,000 mls @ 250 mls/hr 02/06/25 08:35 D5-Lr IV 03/08/25 08:34 .Q4H PRN PER PROTOCOL Lactated Ringer's 1,000 mls @ 250 mls/hr 02/06/25 08:35 02/06/25 09:26 Lactated Ringers IV 02/07/25 08:34 250 mls/hr .Q4H PRN Administration PER PROTOCOL Potassium Chloride 20 meq/ 1,010 mls @ 250 mls/hr 02/06/25 08:35 Lactated Ringer's IV 03/08/25 08:34 .Q4H3M PRN K LEVEL 3.3 TO 5.3mM/L Potassium Chloride 40 meq/ 1,020 mls @ 250 mls/hr 02/06/25 08:35 Lactated Ringer's IV 03/08/25 08:34 .Q4H5M PRN K LEVEL < 3.3 mM/L Potassium Chloride 40 meq/ 1,020 mls @ 250 mls/hr 02/06/25 08:35 Dextrose/Lactated Ringer's IV 03/08/25 08:34 .Q4H5M PRN K LEVEL < 3.3mM/L Potassium Cl/Dextrose/Lact Ringer's 20 meq in 1,000 mls @ 250 mls/hr 02/06/25 08:35 Kcl 20 Meq/L In D5-Lr IV .Q4H PRN K LEVEL 3.3 TO 5.3 mM/L Potassium Chloride 10 meq in 100 mls @ 50 mls/hr 02/06/25 08:35 Kcl Ivpb IV 03/08/25 08:34 PRN PRN K LEVEL 3.3 to 5.3 & BG > 200 Potassium Phosphate 15 mmol in 250 mls @ 62.5 mls/hr 02/06/25 08:35 Pot Phos 15 Mmol In Ns 250 Ml IV 03/08/25 08:34 PRN PRN Phosphate <= 1mg/dL Sodium Phosphate 15 mmol/ 255 mls @ 62.5 mls/hr 02/06/25 08:35 Sodium Chloride IV 03/08/25 08:34 .Q4H5M PRN Phosphate <= 1mg/dL and K> than 5.3 Insulin Human Lispro 0 unit 02/06/25 04:15 02/06/25 06:50 Insulin Lispro (Admelog) 1 Unit/0.01 Ml Unit SC 03/08/25 04:14 Not Given On Hold: 02/06/25 08:48 Q6HR ANGÉLICA Comment: IV INSULIN INFUSION Protocol ACTIVE. Metoclopramide HCl 5 mg 02/06/25 01:30 02/06/25 06:12 Metoclopramide Inj 5 Mg/Ml Vial 2 Ml IVP 03/08/25 01:29 5 mg Q6HR ANGÉLICA Administration Protocol Midodrine 10 mg 02/06/25 14:00 Midodrine 5 Mg Tablet PO 03/08/25 13:59 Q8HR ANGÉLICA Phenazopyridine HCl 100 mg 02/06/25 08:00 02/06/25 10:23 Phenazopyridine Hcl 100 Mg Tablet PO 02/07/25 17:31 100 mg TIDWM ANGÉLICA Administration Phenyleph/Shark Oil/Min Oil/Petrol 0 gm 02/06/25 09:26 Preparation H Oint 30 Gm Tube KS 03/08/25 09:25 BID PRN HEMORRHOIDS Sodium Bicarbonate 50 ml 02/06/25 08:35 Sodium Bicarb Inj 8.4% Syr 50 Ml Syringe IV 03/08/25 08:34 Q4HR PRN For ph <= to 7.0 Plan Patient is a 54-year-old male with past medical history of type II IDDM, primary hypertension and recent right ankle ORIF, who presented on 02/05/25 for altered mentation, found to be in DKA. Cardiology consulted for brief episode of monomorphic ventricular tachycardia. #Monomorphic nonsustained ventricular tachycardia NSVT #Acute hypokalemia Had 6 second episode of monomorphic ventricular tachycardia. Patient denies personal cardiac history and has never seen a private client advisor. Denies any family history of cardiac disease. Potassium 2.9 on admission. Now converted back to sinus rhythm on telemetry, no other episodes noted. The NSVT likely secondary to AGMA, DKA and shock below. Given amiodarone in ED. - Continue amiodarone drip GGT per protocol until all the electrolytes are replaced aggressively. - Continue telemetry monitoring to monitor for any kind of further ventricular tachycardia episodes until the echocardiogram is completed to evaluate LV function and RV function as well as diastolic function. - TTE 02/05/25: Normal left ventricular size and function. Approximate ejection fraction is 55-60%. Grade I diastolic dysfunction. Normal right ventricular size and function. Mild mitral regurgitation and tricuspid regurgitation. The inferior vena cava not well visualized. No pericardial effusion. - S/p amiodarone drip GGT per protocol. - Recommend stopping the amiodarone completely for now, start patient on low-dose metoprolol tartrate if BP is stable. - Keep potassium >4 and magnesium >2 for cardiac membrane stabilization. - CTM telemetry #Hypotension #Shock, hypovolemic versus distributive #Starvation ketoacidosis #Acute hypokalemia #Hx insulin dependent DM type 2 #STEVEN Presented with BP of 68/47. Per history, has not been taking his insulin for the past 2 months, until recently. Labs remarkable for lactic acid 4.9, ESR 66, CRP 1.3. K 2.9, BHB 4.8. Anion gap 22, pH 7.17, CO2 26 and bicarb 11.2, glucose 121, lactic acid 4.9. UA remarkable for 4+ glucosuria and 4+ ketonuria. Likely hypovolemic secondary to osmotic diuresis versus secondary to acute ketoacidosis and lactic acidosis. - Continue levophed 0.05 mcg/kg/min per primary team. #Pre-renal LILIANA #Hemoconcentration On admission, creatinine 1.4, baseline 0.6-0.7. 02/06/25: Creatinine improved to 0.9. - Gentle IV fluid resuscitation. Monitor for signs of fluid overload, if increased shortness of breath or peripheral swelling, diurese with IV Lasix 20 x1. #UTI, symptomatic #Lower abdominal pain #Leukocytosis, likely reactive #Concern for oropharyngeal dysphagia,resolved #Decreased p.o. intake #Acute metabolic encephalopathy, resolved #Subclinical hypothyroidism Thank you for your consultation, please do not hesitate to reach out if you have any question or concern Patient plan of care was discussed with the senior resident, -, and attending physician, Dr. Castle Bambi Leo, PGY-1 Attending Provider Attestation/Addendum I have personally seen and examined the patient separately on the above date of service and discussed the plan of care with the resident. I reviewed the resident Dr. Bambi Leo consultation progress note and agree with the resident findings and plan in the note above and have also edited the documentation to reflect my findings and plan. Oscar Celeste M.D. Interventional Cardiology
--- NOTE | 2025-02-06 11:01 | ESPR_ITS ---
<Statement entered by Mikey Armstrong MD - 02/06/25 18:40> Patient seen and examined at bedside. I discussed and supervised with the wedding planning internship physician who took care of this patient. I personally saw and examined the patient. I agree with most of the assessment and plan. Patient was attempted manual self?disimpaction of stool due to extreme discomfort and constipation approximately 2 weeks. Patient was given lactulose 20 followed by additional dose lactulose 40, eventually had large bowel movement. Due to worsening acidosis despite D10 infusion, patient was started on DKA protocol, diet was switched to clear liquid for patient comfort. Patient was also given IV fluids and midodrine scheduled, due to being placed on Levophed again. Patient blood pressure improved, Levophed titrated off. Follow-up labs show closing of anion gap with improvement in bicarb. Plan to transition to subcu insulin once anion gap closed x 2, potential downgrade tomorrow. Patient was also started on Bicitra due to RTA based on positive urine Anion gap. Plan of care discussed with attending Dr. Gutierrez. Mikey Armstrong MD PGY-2 Documentation for date of: 02/06/25 Subjective Subjective Interval history: Mr. Calzada is a 54-year-old male with past medical history of type II IDDM, primary hypertension and recent right ankle ORIF, who was brought in to the ED via EMS for altered mentation. As per ED documentation, patient has apparently been noncompliant with his insulin at home, along with poor oral intake. Son reported several days of progressively worsening mental status, with inability to ambulate and carry out ADLs. At baseline patient is alert and oriented, and is able to perform ADLs independently. As per patient, he stopped his insulin about 2 months ago as it was making him crave sugars and have an increased appetite. He also stopped his oral medications on his own. He was AO x 3 in the ED when evaluated, claims that he does not think medications are working which is why he stopped everything. Patient also complains of burning and irritation in passing urine for the last 3 days, denies any fever or other systemic symptoms. Per son at bedside, daughter bought insulin and gave it to him 3 days ago to restart home medications, which triggered all the symptoms. In the ED, vitals showed hypotension BP 70/50, MAP 50s. Tachycardia HR 101-105 bpm, afebrile, and saturations 96/97% on 3 L oxygen via nasal cannula. Initial laboratory workup remarkable for mild leukocytosis WBC 13.7 with lymphocyte predominance, hemoconcentration Hb 16.5, hypokalemia K2.9, BHB 4.8 anion gap 22, pH 7.17, CO2 26 and bicarb 11.2, glucose 121, lactic acid 4.9. He also had mildly elevated CRP 1.3, TSH 5.89, lipase 342 and amylase 199. UA remarkable for 4+ glucosuria and 4+ ketonuria. U tox negative. EKG showed sinus tachycardia. Patient was admitted to the ICU for management of diabetic ketoacidosis, likely starvation ketoacidosis. Will start patient on DKA protocol without insulin drip at this time. Also started on Levophed for blood pressure. Allergies: NKFDA Social history: Marital?Status:? Tobacco?Use:?Denies ETOH?Use:?Denies Drug?Note:?Denies Social?History?Note:?Lives?with family Family history: Unsure ROS Unobtainable: unobtainable due to mental status Interval History: 02/05/2025: Patient was seen and examined in the ICU. Overnight, patient was admitted for concern of starvation ketoacidosis and septic shock requiring pressors. Additionally, patient had a episode of monomorphic V. tach for 6 seconds overnight. Patient reported that he had decreased appetite with difficulty swallowing and vomiting from past couple of weeks. He also reported to have suprapubic tenderness associated with left lower quadrant tenderness. He endorsed burning and dysuria. Plan is to continue Levophed with antibiotics to cover for concern for septic shock related to possible prostatitis/cystitis. Will likely evaluate patient's swallow screen tomorrow with formal speech eval and if patient needs barium swallow. Cardiology recommended to hold off on amiodarone and no further monomorphic V. tach were reported. Cheetah showed patient's cardiac index did not show improvement with passive leg raise hence not fluid responsive. Patient's beta-hydroxybutyrate went up therefore D10 was started at 70 cc/h along with repeating beta-hydroxybutyrate in the morning. Chlamydia gonorrhea testing, HIV testing were added for the morning. Will follow-up with morning labs. 02/06/2025: Patient overnight attempted manual disimpaction of stool in rectum, was initially refusing to take any medication or enema, eventually was given lactulose 20 gm x1 without much help. Patient was reported to eat some soup overnight with glucose rise to 500, was given IV regular insulin 100 units along with a 500 ml bolus of LR and 5 mg midodrine this morning. This morning, patient was resting in bed and expressed having continued constipation, abdominal pain, dysuria and lower thoracic discomfort since this morning. Patient stated he does not want to eat, but is not having any nausea or vomiting. Patient put out 135 cc/hr urine overnight. Patient was given a dose of lactulose 40 gm po x1. Electrolytes were replenished. Patient's blood pressure in the morning decreased to 60s/40s, patient was restarted on Levophed with midodrine 10 mg PO q8hr. DKA protocol was put in place this morning. Patient was given 30 ml PO bicarb Exam Vital Signs Temp Pulse Resp BP Pulse Ox O2 Del Method O2 Flow Rate 97.3 F 90 19 116/69 98 Nasal Cannula 3 02/06/25 00:00 02/06/25 10:34 02/06/25 01:01 02/06/25 10:34 02/06/25 06:30 02/05/25 05:56 02/05/25 05:56 Narrative Exam GENERAL APPEARANCE: A&Ox3, continues to be drowsy, saturating well on room air. HEENT: NC, AT. Dry mucous membrane. EOMI, clear conjunctiva, oropharynx clear. NECK: Supple without lymphadenopathy. No stiffness or restricted ROM. HEART: Regular rate and regular rhythm, normal S1/S2, no m/r/g LUNGS: CTAB, moving air well. No crackles or wheezes are heard. ABDOMEN: Soft, suprapubic tenderness and LLQ tenderness, nondistended, bowel sounds heard. BACK: No CVAT, no obvious deformity. EXTREMITIES: Without cyanosis, clubbing or edema. Left upper extremity first phalanx amputation NEUROLOGICAL: Grossly nonfocal. Alert and oriented, moving all 4 extremities. CN not formally tested but appear grossly intact. Skin: Warm and dry without any rash. Psych: Appropriate mood and affect Objective Labs 02/06/25 04:40 02/06/25 16:30 Labs: Laboratory Results - last 24 hr 02/05/25 02/05/25 02/05/25 01:52 11:05 12:05 WBC RBC Hgb Hct MCV MCH MCHC RDW Std Deviation Plt Count Neut % (Auto) Lymph % (Auto) Thomas % (Auto) Eos % (Auto) Baso % (Auto) Neut # (Auto) Lymph # (Auto) Thomas # (Auto) Eos # (Auto) Baso # (Auto) Immature Gran # (Auto) Absolute Nucleated RBC Immature Gran % Nucleated RBC % VBG pH VBG pCO2 VBG pO2 VBG O2 Sat (Nicole) VBG Base Excess Sodium 136 Potassium 4.5 D Chloride 105 Carbon Dioxide 13.1 L* Anion Gap 18 H BUN 7 L Creatinine 1.3 Estim Creat Clear Calc 77.4 eGFR > 60 BUN/Creatinine Ratio 5 L Glucose 288 H Calculated Osmolality 280 Lactic Acid Cancelled Calcium 8.8 Corrected Calcium 9.2 Phosphorus 1.9 L Magnesium 2.6 Total Bilirubin AST ALT Alkaline Phosphatase Total Protein Albumin 3.5 Globulin Albumin/Globulin Ratio Beta-Hydroxybutyrate/Acetoacetate Ur Random Sodium 51.7 Ur Random Potassium 10 L Ur Random Chloride 51.7 L Chlam trachomat DNA PCR Negative Hepatitis A IgM Ab Hep Bs Antigen Hep B Core IgM Ab Hepatitis C Antibody HIV 1&2 Antibody Rapid N.gonorrhoeae DNA (PCR) Negative Trichomonas DNA Probe Negative 02/05/25 02/05/25 02/05/25 15:11 16:55 23:31 WBC 10.4 RBC 4.94 Hgb 14.7 Hct 44.9 MCV 91 MCH 29.8 MCHC 32.7 RDW Std Deviation 44.2 H Plt Count 237 Neut % (Auto) 63 Lymph % (Auto) 25 Thomas % (Auto) 9 Eos % (Auto) 0 Baso % (Auto) 1 Neut # (Auto) 6.6 Lymph # (Auto) 2.6 Thomas # (Auto) 1.0 H Eos # (Auto) 0.0 Baso # (Auto) 0.1 Immature Gran # (Auto) 0.14 H Absolute Nucleated RBC 0.02 H Immature Gran % 1 H Nucleated RBC % 0 VBG pH VBG pCO2 VBG pO2 VBG O2 Sat (Nicole) VBG Base Excess Sodium 139 139 137 Potassium 4.0 D 3.6 4.2 D Chloride 106 107 104 Carbon Dioxide 15.1 L 15.2 L 14.6 L* Anion Gap 18 H 17 H 18 H BUN 7 L 6 L 6 L Creatinine 1.4 H 1.4 H 1.5 H Estim Creat Clear Calc 71.8 70.6 65.9 eGFR > 60 > 60 56 L BUN/Creatinine Ratio 5 L 4 L 4 L Glucose 264 H 231 H 358 H D Calculated Osmolality 284 282 285 Lactic Acid 1.5 1.4 Calcium 9.2 9.3 9.2 Corrected Calcium 9.6 Phosphorus Magnesium Total Bilirubin 0.2 L AST 14 ALT 8 L Alkaline Phosphatase 87 Total Protein 6.1 Albumin 3.5 Globulin 2.6 Albumin/Globulin Ratio 1.3 Beta-Hydroxybutyrate/Acetoacetate 6.3 H Ur Random Sodium Ur Random Potassium Ur Random Chloride Chlam trachomat DNA PCR Hepatitis A IgM Ab Non Reactive Hep Bs Antigen Non Reactive Hep B Core IgM Ab Non Reactive Hepatitis C Antibody Non Reactive HIV 1&2 Antibody Rapid Non-Reactive N.gonorrhoeae DNA (PCR) Trichomonas DNA Probe 02/06/25 02/06/25 02/06/25 02:20 04:40 09:45 WBC 8.0 RBC 4.19 L Hgb 12.7 L D Hct 38.7 L MCV 92 MCH 30.3 MCHC 32.8 RDW Std Deviation 45.6 H Plt Count 178 D Neut % (Auto) 72 Lymph % (Auto) 20 Thomas % (Auto) 6 Eos % (Auto) 1 Baso % (Auto) 0 Neut # (Auto) 5.8 Lymph # (Auto) 1.6 Thomas # (Auto) 0.5 Eos # (Auto) 0.0 Baso # (Auto) 0.0 Immature Gran # (Auto) 0.05 H Absolute Nucleated RBC 0.00 Immature Gran % 1 H Nucleated RBC % 0 VBG pH 7.23 L VBG pCO2 27 L VBG pO2 38 VBG O2 Sat (Nicole) 75 L VBG Base Excess -15 L Sodium 135 L 137 Potassium 3.4 D 3.3 L Chloride 102 106 Carbon Dioxide 13.7 L* 10.9 L* Anion Gap 19 H 20 H BUN 6 L 6 L Creatinine 1.4 H 0.9 D Estim Creat Clear Calc 70.6 109.9 eGFR > 60 > 60 BUN/Creatinine Ratio 4 L 7 L Glucose 542 H* D 215 H D Calculated Osmolality 292 277 Lactic Acid 1.4 Calcium 8.8 8.6 Corrected Calcium Phosphorus 1.5 L Magnesium 1.6 Total Bilirubin AST ALT Alkaline Phosphatase Total Protein Albumin Globulin Albumin/Globulin Ratio Beta-Hydroxybutyrate/Acetoacetate 5.6 H Ur Random Sodium Ur Random Potassium Ur Random Chloride Chlam trachomat DNA PCR Hepatitis A IgM Ab Hep Bs Antigen Hep B Core IgM Ab Hepatitis C Antibody HIV 1&2 Antibody Rapid N.gonorrhoeae DNA (PCR) Trichomonas DNA Probe ABG Interpretation ABG results: 02/05/25 02/06/25 03:43 04:40 ABG pH 7.17 L* ABG pCO2 26 L ABG pO2 85 ABG HCO3 10 L ABG O2 Saturation 96 ABG Base Excess -17 L VBG pH 7.23 L VBG pCO2 27 L VBG pO2 38 VBG Base Excess -15 L Quality Measures Quality Measures VTE prophylaxis (Lovenox) Assessment & Plan Assessment Current Active Medications: Generic Name Dose Route Start Last Admin Trade Name Freq PRN Reason Stop Dose Admin Acetaminophen 1,000 mg 02/05/25 05:13 Acetaminophen 500 Mg Tablet PO 03/07/25 05:14 Q6H PRN fever >99.9 Citric Acid/Sodium Citrate 30 ml 02/06/25 09:45 02/06/25 10:35 Citric Acid/Sodium Citr 15 Ml Udc (Bicitra) PO 03/08/25 09:44 30 ml BID ANGÉLICA Administration Dextrose 25 ml 02/05/25 12:45 Dextrose 50%-Water Inj 50 Ml Syringe IV 03/07/25 12:44 On Hold: 02/06/25 08:48 Q15MIN PRN Comment: IV INSULIN INFUSION BG 50-70 responsive npo pt ACTIVE. Dextrose 50 ml 02/05/25 12:45 Dextrose 50%-Water Inj 50 Ml Syringe IV 03/07/25 12:44 On Hold: 02/06/25 08:48 Q15MIN PRN Comment: IV INSULIN INFUSION BG <50 OR BG <70 & pt unresponsive ACTIVE. Dextrose 25 ml 02/06/25 08:35 Dextrose 50%-Water Inj 50 Ml Syringe IV [id number] PRN Blood Sugar - Low Doxycycline Hyclate 100 mg 02/05/25 10:45 02/06/25 08:50 Doxycycline 100 Mg Tablet PO 02/12/25 10:44 100 mg BID ANGÉLICA Administration Enoxaparin Sodium 30 mg 02/05/25 21:00 02/05/25 20:27 Enoxaparin Sod Inj 30 Mg/0.3 Ml Syringe SC 02/19/25 20:59 30 mg QPM ANGÉLICA Administration Famotidine 20 mg 02/05/25 09:00 02/06/25 08:49 Famotidine Inj 10 Mg/Ml Vial 2 Ml IVP 03/07/25 08:59 20 mg BID ANGÉLICA Administration Glucagon 1 mg 02/05/25 12:45 Glucagon Inj 1 Mg Vial IM Q15MIN PRN BG <70, and no IV access Norepinephrine/Dextrose 8 mg in 250 mls @ 9.993 mls/hr 02/05/25 01:38 02/06/25 09:41 Levophed In D5w 8mg/250ml IV 03/07/25 01:37 0.05 mcg/kg/min .Q24H PRN 9.993 mls/hr PER PROTOCOL Administration Protocol 0.05 MCG/KG/MIN Cefepime HCl 1 gm/ Sodium 50 mls @ 100 mls/hr 02/05/25 05:49 02/06/25 05:58 Chloride IV 02/12/25 05:48 100 mls/hr Q8HR ANGÉLICA Administration Dextrose 1,000 mls @ 70 mls/hr 02/05/25 17:30 02/05/25 18:17 D10w 1000 Ml IV 02/06/25 22:04 70 mls/hr .[id number] ANGÉLICA Administration Potassium Phosphate 15 mmol in 250 mls @ 62.5 mls/hr 02/06/25 07:54 02/06/25 09:19 Pot Phos 15 Mmol In Ns 250 Ml IV 02/06/25 11:53 62.5 mls/hr X1 ONE Administration Potassium Phosphate 15 mmol in 250 mls @ 62.5 mls/hr 02/06/25 07:56 Pot Phos 15 Mmol In Ns 250 Ml IV 02/06/25 11:55 X1 ONE Potassium Chloride 10 meq in 100 mls @ 100 mls/hr 02/06/25 08:35 Kcl Ivpb IV 03/08/25 08:34 .Q1H PRN IF POTASSIUM LESS THAN 3.3 Magnesium Sulfate 2 gm in 50 mls @ 25 mls/hr 02/06/25 08:35 Magnesium Sulfate Ivpb IV 03/08/25 08:34 .Q2H PRN PER DKA PROTOCOL Insulin Human Regular 100 unit 100 mls @ 10.659 mls/hr 02/06/25 08:35 02/06/25 10:00 / IV Miscellaneous Supplies IV 03/08/25 08:34 0.1 unit/kg/hr .Q9H23M PRN 10.659 mls/hr PER PROTOCOL Titration Protocol 0.1 UNIT/KG/HR Dextrose/Lactated Ringer's 1,000 mls @ 250 mls/hr 02/06/25 08:35 D5-Lr IV 03/08/25 08:34 .Q4H PRN PER PROTOCOL Lactated Ringer's 1,000 mls @ 250 mls/hr 02/06/25 08:35 02/06/25 09:26 Lactated Ringers IV 02/07/25 08:34 250 mls/hr .Q4H PRN Administration PER PROTOCOL Potassium Chloride 20 meq/ 1,010 mls @ 250 mls/hr 02/06/25 08:35 Lactated Ringer's IV 03/08/25 08:34 .Q4H3M PRN K LEVEL 3.3 TO 5.3mM/L Potassium Chloride 40 meq/ 1,020 mls @ 250 mls/hr 02/06/25 08:35 Lactated Ringer's IV 03/08/25 08:34 .Q4H5M PRN K LEVEL < 3.3 mM/L Potassium Chloride 40 meq/ 1,020 mls @ 250 mls/hr 02/06/25 08:35 Dextrose/Lactated Ringer's IV 03/08/25 08:34 .Q4H5M PRN K LEVEL < 3.3mM/L Potassium Cl/Dextrose/Lact Ringer's 20 meq in 1,000 mls @ 250 mls/hr 02/06/25 08:35 Kcl 20 Meq/L In D5-Lr IV .Q4H PRN K LEVEL 3.3 TO 5.3 mM/L Potassium Chloride 10 meq in 100 mls @ 50 mls/hr 02/06/25 08:35 Kcl Ivpb IV 03/08/25 08:34 PRN PRN K LEVEL 3.3 to 5.3 & BG > 200 Potassium Phosphate 15 mmol in 250 mls @ 62.5 mls/hr 02/06/25 08:35 Pot Phos 15 Mmol In Ns 250 Ml IV 03/08/25 08:34 PRN PRN Phosphate <= 1mg/dL Sodium Phosphate 15 mmol/ 255 mls @ 62.5 mls/hr 02/06/25 08:35 Sodium Chloride IV 03/08/25 08:34 .Q4H5M PRN Phosphate <= 1mg/dL and K> than 5.3 Insulin Human Lispro 0 unit 02/06/25 04:15 02/06/25 06:50 Insulin Lispro (Admelog) 1 Unit/0.01 Ml Unit SC 03/08/25 04:14 Not Given On Hold: 02/06/25 08:48 Q6HR ANGÉLICA Comment: IV INSULIN INFUSION Protocol ACTIVE. Metoclopramide HCl 5 mg 02/06/25 01:30 02/06/25 06:12 Metoclopramide Inj 5 Mg/Ml Vial 2 Ml IVP 03/08/25 01:29 5 mg Q6HR ANGÉLICA Administration Protocol Midodrine 10 mg 02/06/25 14:00 Midodrine 5 Mg Tablet PO 03/08/25 13:59 Q8HR ANGÉLICA Phenazopyridine HCl 100 mg 02/06/25 08:00 02/06/25 10:23 Phenazopyridine Hcl 100 Mg Tablet PO 02/07/25 17:31 100 mg TIDWM ANGÉLICA Administration Phenyleph/Shark Oil/Min Oil/Petrol 0 gm 02/06/25 09:26 Preparation H Oint 30 Gm Tube WI 03/08/25 09:25 BID PRN HEMORRHOIDS Sodium Bicarbonate 50 ml 02/06/25 08:35 Sodium Bicarb Inj 8.4% Syr 50 Ml Syringe IV 03/08/25 08:34 Q4HR PRN For ph <= to 7.0 Plan Patient is a 54-year-old male admitted for starvation ketoacidosis and septic shock requiring pressors. NEURO #Acute metabolic encephalopathy -resolved Dx: - Ammonia <10 - Likely in the setting of ketoacidosis, pH 7.17 and bicarb 11.2 - on admission, patient was AO x 4, slightly drowsy Rx: - Anticipate improvement in mentation with fluids and electrolyte repletion CVS #Monomorphic V.Tach --> sinus Dx -Repeat EKG 02/05 in the morning showed QTc 479 with sinus rhythm -EKG 02/06 showed sinus rhythm -TTE 02/05 showed EF 55-60% with Normal L & R ventricular size and function Rx - IV Amiodarone was given and no repeat episode noted and emulsion coater recommended to discontinue amiodarone - monitor electrolytes closely - Keep magnesium above 2 and potassium above 4 - Continuous monitoring for chest pain or discomfort along with heat treater helper - QTc was prolonged on EKG/ avoid QTc prolonging agent #Shock Likely Distributive vs. hypovolemic Dx: - Likely in the setting of acute ketoacidosis and lactic acidosis, no overt signs of infection, ProCal negative. Patient is afebrile. - BP 70s/40s initially--> 120s/60s after Levophed --> taken off Levophed overnight --> put back on Levophed 10 AM temporarily for BP 60s/40s. -Currently maintaining BP with fluid and midodrine IV 10 mg po q8hr - LA 4.9 on admission -> downtrended to 1.4 02/06 -> repeated due to DKA of 3.5 - > decreased to 1.4 after DKA protocol put in place - Patient apparently had a 6 sec sustained VTach Rx: - Continue midodrine 10 mg IV po q8hr - Fluids per DKA protocol - Will follow-up with lactic acid q4hr - Monitoring SVO2 with VBG's - Treating underlying infection with antibiotics Resp No active issue ENDO #DKA #Starvation Ketoacidosis, less likely #T2 IDDM Dx: - History of type 2 insulin-dependent diabetes. - Home medication: Jardiance 25 mg daily, metformin 1 g twice daily, insulin Levemir, insulin regular - A1c 11.6 - Folate levels: 22.07. BHB: 4.8 --->6.3 - 02/05 Per speech eval's: Patient is able to participate in eating activity. Demonstrating slow but functional rotatory jaw grading and lingual sweeps with soft minced food items. No signs and symptoms of laryngeal penetration or vocal congestion. No coughing. Per recommendations: Continue minced diet until mentation is baseline due to lack of dentition and slow mgt. Advance as tolerated. - Pending thiamine level Rx: - Insulin drip continued after no improvement in bicarb or AGAP after being given glucose, no longer suspecting starvation ketoacidosis. - DKA Protocol in Place as of 10/9 AM (BELOW) -Hourly I&O's -Christina Catheter PRN -Fingerstick blood glucose check every 1 hr until 2 hrs post anion gap closure -Continuous Child Nurse -Blood Cultures X2 if Temp > 101 degrees F -ABG's, CMP & Serum Lactate and 5-Cohg-Rfghbkvpmnybhke (acetone), CBC, Urinalysis, Cardiac Enzymes, Magnesium Level and Hgb A1C NOW if not done already -Renal Panel, Magnesium, Phosphorus, Venous Blood Gas and Serum Lactate every 4hrs X 48 hours -Serum 9-Dpys-Jmchhdxckeeovrd (acetone) daily X 3 -Initial IV fluids and mainntenance fluids (D5-LR at 250 ml/hr) -Monitor & replete electrolytes per protocol. - Hypoglycemia protocol in place - Referral to registered dietitian, tito recs RRx: - Health equity referral for safety, knowledge deficit - Advisable to prescribe continuous glucose monitor on discharge #Subclinical hypothyroidism Dx: -TSH: 5.89, free T4: 1.44 Rx: -Outpatient follow-up PULM No active problems ID #Symptomatic UTI versus prostatitis Dx: Patient endorses dysuria since ~ 01/31 UA negative for nitrates, esterase and no bacteria. Suprapubic tenderness with left lower quadrant tenderness. CT abdomen showed cystitis with bladder wall thickening. Rx: - Continue with IV antibiotics including cefepime, doxycycline - Phenazopyridine for burning during urination - Follow-up with urine cultures, chlamydia gonorrhea testing and HIV RENAL #Anion gap metabolic acidosis with NAGMA with appropriate respiratory compensation 2/2 DKA #Distal RTA 2/2 Diabetes #Prerenal LILIANA #Hypokalemia #Hypophosphatemia Dx: - On admission, K 2.9, BHB 4.8 , Glucose 121, anion gap 22, lactic acid 4.9 -02/05: Bhatia formula: pco2: 26-30 Delta gap:0.8 -Urine electrolytes showed positive anion gap. Rx: - DKA protocol in place - Ordered Bicitra 30 ml PO BID - Avoid nephrotoxic agents GI/Hep/ #Concern for UTI/prostatitis Dx: -Patient endorsed burning sensation during urination and left lower quadrant tenderness. He has been having decreased p.o. intake with difficulty swallowing. -Of note, amylase 199, lipase 342 -CT abdomen showed bladder wall thickening/cystitis. -Elevated CRP and ESR Rx: - Continue antibiotics and continue phenazopyridine for urinary analgesia - Follow-up blood cultures and urine culture - Follow-up with STD panel and HIV #Decreased p.o. intake Due to abdominal pain with prolonged constipation. Denies N/V 02/06. Dx: -Due to ketoacidosis being found to be due to DKA, no longer on regular diet. Rx: -Per speech eval's: Patient is able to participate in eating activity. Demonstrating slow but functional rotatory jaw grading and lingual sweeps with soft minced food items. No signs and symptoms of laryngeal penetration or vocal congestion. No coughing. Per recommendations: Continue minced diet until mentation is baseline due to lack of dentition and slow mgt. Advance as tolerated. -Diabetic Clear Liquid diet HEME/ONC #Anemia likely hemodilution, resolved Dx: - WBC 8.0 (10.4), Hb 12.7 (14.7), PLT 178 (237) Rx: - Continue IVF hydration - Monitor for signs of bleeding ICU Health maintenance: Dispo: Continuing management in ICU for DKA Diet: Diabetic Clear Liquid DVT ppx: Enoxaparin 40mg SC daily GI ppx: Famotidine 20 mg twice daily IV lines: 2 pIV Code status: FULL CODE Patient plan of care was discussed with the attending physician, Dr. Gutierrez & senior resident Dr. Sage CLEMENS PGY-1 Attending Provider Attestation/Addendum Patient seen and examined resident team. Agree with above. In brief is a 54-year-old male admitted to the ICU for initially starvation ketoacidosis. He was also found to have an undifferentiated shock. He was on Levophed. Today his vasopressor requirements are improving though still present. His acidosis had originally been improving however it has started to worsen once more. He has been started on D10 drip yesterday afternoon. Today I feel that starvation ketosis is less likely and that he is switched to a diabetic ketoacidosis. He is placed on DKA protocol. He is on an insulin drip with fluids. He complained of constipation was given lactulose with resolution of his complaints. He has had no episodes of nausea and vomiting since arrival. His anion gap on follow- up labs is beginning to trend down. Will follow-up on his potassium for repletion. Will replete mag and Phos as well. Case discussed with ICU team Labs, imaging records reviewed Approximately 45 critical care was required evaluation, exam, review, intervention, discussion formulation of plan of care for his greatly ill patient with undifferentiated shock at high risk for further and ongoing decompensation
[2025-02-06 12:34] LABS: Lactate (Lactic Acid) 3.5 mMol/L (0.4-2.0)
[2025-02-06] MEDS: DEXTROSE 5%-LACTATED RINGERS 1,000 ML 250 ML IV (12:36)
[2025-02-06 13:59] LABS: Anion Gap 18 (7-16); BUN/Creatinine Ratio 4 Ratio (12-20); Blood Urea Nitrogen < 5 mg/dL (9-23); Calcium 7.4 mg/dL (8.3-10.6); Chloride 103 mMol/L (98-107); Creatinine (Component) 1.2 mg/dL (0.6-1.3); Estimated Creatinine Clearance 82.4 mL/min (>60); Magnesium 1.2 mg/dL (1.6-2.6); Potassium 3.3 mMol/L (3.4-5.1); Sodium 133 mMol/L (136-145); eGFR > 60 See Note
[2025-02-06 14:00] LABS: Carbon Dioxide 11.8 mMol/L (20.0-31.0); Osmolality,Calculated 344 (275-295)
[2025-02-06] MEDS: POT CHL ADDITIVE 20 MEQ in RINGERS LACTATED 1000 ML 1,000 ML 250 MEQ IV (15:10)
[2025-02-06 15:30] LABS: Reflex Lactate? Y
[2025-02-06] MEDS: MIDODRINE 5 MG TABLET 10 MG PO ×2 (15:49→21:32)
[2025-02-06 16:10] LABS: Phosphorous 1.2 mg/dL (2.4-5.1)
[2025-02-06 16:44] LABS: Lactate (Lactic Acid) 1.4 mMol/L (0.4-2.0)
[2025-02-06 17:05] LABS: Albumin, Serum 3.3 gm/dL (3.5-5.0); Anion Gap 15 (7-16); BUN/Creatinine Ratio 5 Ratio (12-20); Blood Urea Nitrogen < 5 mg/dL (9-23); Calcium 8.5 mg/dL (8.3-10.6); Calcium (Corrected) 9.1 mg/dL (8.5-10.1); Carbon Dioxide 20.4 mMol/L (20.0-31.0); Chloride 107 mMol/L (98-107); Creatinine (Component) 1.1 mg/dL (0.6-1.3); Estimated Creatinine Clearance 89.9 mL/min (>60); Glucose 105 mg/dL (74-106); Magnesium 2.1 mg/dL (1.6-2.6); Osmolality,Calculated 280 (275-295); Phosphorous 2.1 mg/dL (2.4-5.1); Potassium 2.9 mMol/L (3.4-5.1); Sodium 142 mMol/L (136-145); eGFR > 60 See Note
[2025-02-06] MEDS: POT CHL ADDITIVE 40 MEQ in DEXTROSE 5%-LACTATED RINGERS 1,000 ML 250 MEQ IV (17:25)
[2025-02-06] MEDS: POTASSIUM CHL 10 mEq IVPB 10 MEQ/100 ML BAG 100 MEQ IV ×4 (17:51→20:36)
--- NOTE | 2025-02-06 18:57 | PC.NURSE ---
potassium level 3.7, dr giang ordered 30mmols potasium phosphate, then robinson hagan order to start on insulin drip used lactated ringer 250ml/hour till k phos finised then go with insulin protocl.
[2025-02-06] MEDS: POT CHL ADDITIVE 40 MEQ in RINGERS LACTATED 1000 ML 1,000 ML 250 MEQ IV (20:35)
[2025-02-06] MEDS: NAPH,KPH MBDB 1 PACKET (1.5 GM) PO (20:36)
[2025-02-06] MEDS: ENOXAPARIN SOD INJ 30 MG/0.3 ML SYRINGE SC (20:36)
[2025-02-06 21:22] LABS: Lactate (Lactic Acid) 1.4 mMol/L (0.4-2.0)
[2025-02-06 21:45] LABS: Albumin, Serum 3.5 gm/dL (3.5-5.0); Anion Gap 14 (7-16); BUN/Creatinine Ratio 5 Ratio (12-20); Blood Urea Nitrogen < 5 mg/dL (9-23); Calcium 9.0 mg/dL (8.3-10.6); Calcium (Corrected) 9.4 mg/dL (8.5-10.1); Carbon Dioxide 19.3 mMol/L (20.0-31.0); Chloride 105 mMol/L (98-107); Creatinine (Component) 1.1 mg/dL (0.6-1.3); Estimated Creatinine Clearance 89.9 mL/min (>60); Glucose 184 mg/dL (74-106); Magnesium 1.7 mg/dL (1.6-2.6); Osmolality,Calculated 277 (275-295); Phosphorous 2.1 mg/dL (2.4-5.1); Potassium 3.6 mMol/L (3.4-5.1); Sodium 138 mMol/L (136-145); eGFR > 60 See Note
[2025-02-06] MEDS: KCL 20 mEq/L in D5-LR 20 MEQ/1,000 ML BAG 250 MEQ IV (22:00)
[2025-02-06] MEDS: INSULIN REG 100 UNITS/100 ML 100 UNIT in PRE-MIXED 1 BAG 5.33 UNIT IV (23:33)
[2025-02-07] VITALS (43 sets, daily range): BP systolic 95–151; BP diastolic 52–94; PULSE 74–98; RESP 13–38; TEMP 36.1–36.6; O2SAT 92–100; BMI 39.2
[2025-02-07 01:19] LABS: Lactate (Lactic Acid) 1.3 mMol/L (0.4-2.0)
[2025-02-07] MEDS: METOCLOPRAMIDE INJ 5 MG/ML VIAL 2 ML IVP ×4 (01:23→17:30)
[2025-02-07] MEDS: NAPH,KPH MBDB 1 PACKET (1.5 GM) PO (01:24)
[2025-02-07 01:43] LABS: Albumin, Serum 3.0 gm/dL (3.5-5.0); Anion Gap 13 (7-16); BUN/Creatinine Ratio 5 Ratio (12-20); Blood Urea Nitrogen < 5 mg/dL (9-23); Calcium 8.1 mg/dL (8.3-10.6); Calcium (Corrected) 8.9 mg/dL (8.5-10.1); Carbon Dioxide 20.2 mMol/L (20.0-31.0); Chloride 107 mMol/L (98-107); Creatinine (Component) 1.0 mg/dL (0.6-1.3); Estimated Creatinine Clearance 98.9 mL/min (>60); Glucose 193 mg/dL (74-106); Magnesium 1.8 mg/dL (1.6-2.6); Osmolality,Calculated 281 (275-295); Phosphorous 2.1 mg/dL (2.4-5.1); Potassium 3.3 mMol/L (3.4-5.1); Sodium 140 mMol/L (136-145); eGFR > 60 See Note
[2025-02-07] MEDS: POT CHL ADDITIVE 20 MEQ in DEXTROSE 5%-LACTATED RINGERS 1,000 ML 250 MEQ IV (03:45)
[2025-02-07] MEDS: POT CHL ADDITIVE 20 MEQ in RINGERS LACTATED 1000 ML 1,000 ML 250 MEQ IV (04:00)
[2025-02-07] MEDS: ACETAMINOPHEN 500 MG TABLET 1000 MG PO (05:08)
[2025-02-07] MEDS: CEFEPIME INJ 1 GM in SODIUM CHLORIDE 0.9% (Popper) 50 ML IV (05:08)
[2025-02-07 05:11] LABS: Basophils # (Auto) 0.0 Thou/mm3 (0.0-0.2); Basophils % (Auto) 0 % (0-2.5); Eosinophils # (Auto) 0.1 Thou/mm3 (0.0-0.5); Eosinophils % (Auto) 2 % (0-10); Hematocrit 37.9 % (41.0-53.0); Hemoglobin 12.5 g/dL (13.5-16.0); Immature Granulocytes Auto 0.05 Thou/mm3 (0.00-0.00); Lactate (Lactic Acid) 1.2 mMol/L (0.4-2.0); Lymphocytes # (Auto) 2.3 Thou/mm3 (1.0-4.8); Lymphocytes % (Auto) 30 % (10-50); Mean Corpuscular HGB Conc 33.0 g/dl (31.0-37.0); Mean Corpuscular Hemoglobin 29.9 pg (25.0-35.0); Mean Corpuscular Volume 91 fL (80-100); Monocytes # (Auto) 0.9 Thou/mm3 (0.0-0.8); Monocytes % (Auto) 11 % (0-12); Neutrophils # (Auto) 4.4 Thou/mm3 (1.8-7.7); Neutrophils % (Auto) 56 % (37-80); Nucleated Red Blood Cell # 0.00 Thou/mm3 (0.00-0.00); Nucleated Red Blood Cell % 0 /100 WBC (0); Platelet Count 163 Thou/mm3 (140-440); RDW Standard Deviation 45.1 fL (35.1-43.9); Red Blood Count 4.18 Miln/mm3 (4.50-5.90); White Blood Count 7.7 Thou/mm3 (3.8-10.6)
[2025-02-07] MEDS: MIDODRINE 5 MG TABLET 10 MG PO ×3 (05:14→21:19)
[2025-02-07 05:29] LABS: Albumin, Serum 2.9 gm/dL (3.5-5.0); Anion Gap 12 (7-16); BUN/Creatinine Ratio 6 Ratio (12-20); Blood Urea Nitrogen < 5 mg/dL (9-23); Calcium 8.0 mg/dL (8.3-10.6); Calcium (Corrected) 8.9 mg/dL (8.5-10.1); Carbon Dioxide 22.9 mMol/L (20.0-31.0); Chloride 106 mMol/L (98-107); Creatinine (Component) 0.9 mg/dL (0.6-1.3); Estimated Creatinine Clearance 109.9 mL/min (>60); Glucose 175 mg/dL (74-106); Magnesium 1.7 mg/dL (1.6-2.6); Osmolality,Calculated 282 (275-295); Phosphorous 2.5 mg/dL (2.4-5.1); Potassium 3.1 mMol/L (3.4-5.1); Sodium 141 mMol/L (136-145); eGFR > 60 See Note
[2025-02-07] MEDS: POTASSIUM CHL 10 mEq IVPB 10 MEQ/100 ML BAG 100 MEQ IV (05:32)
--- NOTE | 2025-02-07 06:25 | EVENTNT_ITS ---
Documentation for date of: 02/07/25 Event Note Event Note: 0610 Patient has PVCs on monitor likely due to Mg <2 Please note, DKA protocol does not allow Mg repletion until <1.7 Gave 4g Mg sulfate x1 this am. Continue to replete elctrolytes as needed - keep K >4 and Mg >2 at all times. - Satish Hawkins M.D. PGY3 Disclaimer: Minor errors in recruiting administrator may be present as this note was dictated using voice recognition software.
[2025-02-07] MEDS: Magnesium Sulfate 4 GM Ivpb 4 GM/50 ML BAG IV (06:42)
[2025-02-07] MEDS: INSULIN DEGLUDEC 5 UNIT/0.05 ML (PER 5 UNITS) 15 UNIT SC (06:51)
[2025-02-07] MEDS: INSULIN LISPRO (AdmeLOG) 1 UNIT/0.01 ML UNIT 5 UNIT SC (07:55)
[2025-02-07] MEDS: INSULIN LISPRO (AdmeLOG) 1 UNIT/0.01 ML UNIT SC (07:56)
[2025-02-07] MEDS: PHENAZOPYRIDINE HCL 100 MG TABLET PO ×3 (07:56→17:30)
[2025-02-07] MEDS: FAMOTIDINE INJ 10 MG/ML VIAL 2 ML 20 MG IVP ×2 (08:14→20:45)
[2025-02-07] MEDS: DOXYCYCLINE 100 MG TABLET PO ×2 (08:14→20:45)
--- NOTE | 2025-02-07 08:21 | ESPR_ITS ---
<Statement entered by Mikey Armstrong MD - 02/07/25 12:08> Patient seen and examined at bedside. I discussed and supervised with the international guest coordinator physician who took care of this patient. I personally saw and examined the patient. I agree with most of the assessment and plan. Overnight patient had 2 bowel movements, reports improvement in abdominal discomfort. Anion gap closed, patient transition to subcutaneous insulin, labs stable this morning. Patient stable for downgrade to telemetry. Continue antibiotics due to concern of prostatitis in the setting of septic shock. Initial blood cultures negative, STI testing negative. Continue midodrine for BP support, continue to encourage oral intake. Plan of care discussed with attending Dr. Gutierrez. Mikey rAmstrong MD PGY-2 Documentation for date of: 02/07/25 Subjective Subjective Interval history: Mr. Calzada is a 54-year-old male with past medical history of type II IDDM, primary hypertension and recent right ankle ORIF, who was brought in to the ED via EMS for altered mentation. As per ED documentation, patient has apparently been noncompliant with his insulin at home, along with poor oral intake. Son reported several days of progressively worsening mental status, with inability to ambulate and carry out ADLs. At baseline patient is alert and oriented, and is able to perform ADLs independently. As per patient, he stopped his insulin about 2 months ago as it was making him crave sugars and have an increased appetite. He also stopped his oral medications on his own. He was AO x 3 in the ED when evaluated, claims that he does not think medications are working which is why he stopped everything. Patient also complains of burning and irritation in passing urine for the last 3 days, denies any fever or other systemic symptoms. Per son at bedside, daughter bought insulin and gave it to him 3 days ago to restart home medications, which triggered all the symptoms. In the ED, vitals showed hypotension BP 70/50, MAP 50s. Tachycardia HR 101-105 bpm, afebrile, and saturations 96/97% on 3 L oxygen via nasal cannula. Initial laboratory workup remarkable for mild leukocytosis WBC 13.7 with lymphocyte predominance, hemoconcentration Hb 16.5, hypokalemia K2.9, BHB 4.8 anion gap 22, pH 7.17, CO2 26 and bicarb 11.2, glucose 121, lactic acid 4.9. He also had mildly elevated CRP 1.3, TSH 5.89, lipase 342 and amylase 199. UA remarkable for 4+ glucosuria and 4+ ketonuria. U tox negative. EKG showed sinus tachycardia. Patient was admitted to the ICU for management of diabetic ketoacidosis, likely starvation ketoacidosis. Will start patient on DKA protocol without insulin drip at this time. Also started on Levophed for blood pressure. Allergies: NKFDA Social history: Marital?Status:? Tobacco?Use:?Denies ETOH?Use:?Denies Drug?Note:?Denies Social?History?Note:?Lives?with family Family history: Unsure ROS Unobtainable: unobtainable due to mental status Interval History: 02/05/2025: Patient was seen and examined in the ICU. Overnight, patient was admitted for concern of starvation ketoacidosis and septic shock requiring pressors. Additionally, patient had a episode of monomorphic V. tach for 6 seconds overnight. Patient reported that he had decreased appetite with difficulty swallowing and vomiting from past couple of weeks. He also reported to have suprapubic tenderness associated with left lower quadrant tenderness. He endorsed burning and dysuria. Plan is to continue Levophed with antibiotics to cover for concern for septic shock related to possible prostatitis/cystitis. Will likely evaluate patient's swallow screen tomorrow with formal speech eval and if patient needs barium swallow. Cardiology recommended to hold off on amiodarone and no further monomorphic V. tach were reported. Cheetah showed patient's cardiac index did not show improvement with passive leg raise hence not fluid responsive. Patient's beta-hydroxybutyrate went up therefore D10 was started at 70 cc/h along with repeating beta-hydroxybutyrate in the morning. Chlamydia gonorrhea testing, HIV testing were added for the morning. Will follow-up with morning labs. 02/06/2025: Patient overnight attempted manual disimpaction of stool in rectum, was initially refusing to take any medication or enema, eventually was given lactulose 20 gm x1 without much help. Patient was reported to eat some soup overnight with glucose rise to 500, was given IV regular insulin 100 units along with a 500 ml bolus of LR and 5 mg midodrine this morning. This morning, patient was resting in bed and expressed having continued constipation, abdominal pain, dysuria and lower thoracic discomfort since this morning. Patient stated he does not want to eat, but is not having any nausea or vomiting. Patient put out 135 cc/hr urine overnight. Patient was given a dose of lactulose 40 gm po x1. Electrolytes were replenished. Patient's blood pressure in the morning decreased to 60s/40s, patient was restarted on Levophed with midodrine 10 mg PO q8hr. DKA protocol was put in place this morning. Patient was given 30 ml PO bicarb 02/07/2025: Overnight patient was noted to have some PVC's and was given 4 gm Mag sulfate. Patient states he is feeling much better today after having large bowel movements yesterday. States he feels hungry; was able to tolerate drinking little amounts of water; dysuria improved but still there; endorsed some nausea, but denies any abdominal pain or suprapubic pain. Vitals this morning were stable. This morning patient was started on subcutaneous insulin and was given total of KCl PO 60 mg tablets due to potassium continuing to be low this morning at 3.1 despite repletion overnight. Patient made 1.5 L urine last 24 hours. Patient was started on low carb consistent diet this morning. Patient is planned to be downgraded to [facility] later today, no longer needing ICU level of care. Exam Vital Signs Temp Pulse Resp BP Pulse Ox O2 Del Method O2 Flow Rate 98.2 F 80 30 H 95/63 96 Nasal Cannula 3 02/06/25 20:00 02/07/25 06:00 02/07/25 06:00 02/07/25 06:00 02/07/25 06:00 02/05/25 05:56 02/05/25 05:56 Narrative Exam GENERAL APPEARANCE: A&Ox3, saturating well on room air. HEENT: NC, AT. Dry mucous membrane. EOMI, clear conjunctiva, oropharynx clear. NECK: Supple without lymphadenopathy. No stiffness or restricted ROM. HEART: Regular rate and regular rhythm, normal S1/S2, no m/r/g LUNGS: CTAB, moving air well. No crackles or wheezes are heard. ABDOMEN: Soft, non-tender, nondistended, bowel sounds heard. BACK: No CVAT, no obvious deformity. EXTREMITIES: Without cyanosis, clubbing or edema. Left upper extremity first phalanx amputation NEUROLOGICAL: Grossly nonfocal. Alert and oriented, moving all 4 extremities. CN not formally tested but appear grossly intact. Skin: Warm and dry without any rash. Psych: Appropriate mood and affect Objective Labs 02/07/25 04:44 02/07/25 09:15 Labs: Laboratory Results - last 24 hr 02/05/25 02/06/25 02/06/25 01:52 09:45 12:09 WBC RBC Hgb Hct MCV MCH MCHC RDW Std Deviation Plt Count Neut % (Auto) Lymph % (Auto) [place] % (Auto) Eos % (Auto) Baso % (Auto) Neut # (Auto) Lymph # (Auto) [place] # (Auto) Eos # (Auto) Baso # (Auto) Immature Gran # (Auto) Absolute Nucleated RBC Immature Gran % Nucleated RBC % Sodium Potassium Chloride Carbon Dioxide Anion Gap BUN Creatinine Estim Creat Clear Calc eGFR BUN/Creatinine Ratio Glucose Calculated Osmolality Lactic Acid 1.4 3.5 H Calcium Corrected Calcium Phosphorus Magnesium Albumin Chlam trachomat DNA PCR Negative N.gonorrhoeae DNA (PCR) Negative Trichomonas DNA Probe Negative 02/06/25 02/06/25 02/06/25 13:16 16:30 20:45 WBC RBC Hgb Hct MCV MCH MCHC RDW Std Deviation Plt Count Neut % (Auto) Lymph % (Auto) [place] % (Auto) Eos % (Auto) Baso % (Auto) Neut # (Auto) Lymph # (Auto) [place] # (Auto) Eos # (Auto) Baso # (Auto) Immature Gran # (Auto) Absolute Nucleated RBC Immature Gran % Nucleated RBC % Sodium 133 L 142 Potassium 3.3 L 2.9 L Chloride 103 107 Carbon Dioxide 11.8 L* 20.4 Anion Gap 18 H 15 BUN < 5 L < 5 L Creatinine 1.2 1.1 Estim Creat Clear Calc 82.4 89.9 eGFR > 60 > 60 BUN/Creatinine Ratio 4 L 5 L Glucose 105 D Calculated Osmolality 344 H 280 Lactic Acid 1.4 1.4 Calcium 7.4 L 8.5 Corrected Calcium Cancelled 9.1 Phosphorus 1.2 L 2.1 L Magnesium 1.2 L 2.1 Albumin Cancelled 3.3 L Chlam trachomat DNA PCR N.gonorrhoeae DNA (PCR) Trichomonas DNA Probe 02/06/25 02/07/25 02/07/25 21:08 00:58 04:44 WBC 7.7 RBC 4.18 L Hgb 12.5 L Hct 37.9 L MCV 91 MCH 29.9 MCHC 33.0 RDW Std Deviation 45.1 H Plt Count 163 Neut % (Auto) 56 Lymph % (Auto) 30 [place] % (Auto) 11 Eos % (Auto) 2 Baso % (Auto) 0 Neut # (Auto) 4.4 Lymph # (Auto) 2.3 [place] # (Auto) 0.9 H Eos # (Auto) 0.1 Baso # (Auto) 0.0 Immature Gran # (Auto) 0.05 H Absolute Nucleated RBC 0.00 Immature Gran % 1 H Nucleated RBC % 0 Sodium 138 140 141 Potassium 3.6 D 3.3 L 3.1 L Chloride 105 107 106 Carbon Dioxide 19.3 L 20.2 22.9 Anion Gap 14 13 12 BUN < 5 L < 5 L < 5 L Creatinine 1.1 1.0 0.9 Estim Creat Clear Calc 89.9 98.9 109.9 eGFR > 60 > 60 > 60 BUN/Creatinine Ratio 5 L 5 L 6 L Glucose 184 H D 193 H 175 H Calculated Osmolality 277 281 282 Lactic Acid 1.3 1.2 Calcium 9.0 8.1 L 8.0 L Corrected Calcium 9.4 8.9 8.9 Phosphorus 2.1 L 2.1 L 2.5 Magnesium 1.7 1.8 1.7 Albumin 3.5 3.0 L D 2.9 L Chlam trachomat DNA PCR N.gonorrhoeae DNA (PCR) Trichomonas DNA Probe ABG Interpretation ABG results: 02/05/25 02/06/25 03:43 04:40 ABG pH 7.17 L* ABG pCO2 26 L ABG pO2 85 ABG HCO3 10 L ABG O2 Saturation 96 ABG Base Excess -17 L VBG pH 7.23 L VBG pCO2 27 L VBG pO2 38 VBG Base Excess -15 L Quality Measures Quality Measures VTE prophylaxis (Lovenox) Assessment & Plan Assessment Current Active Medications: Generic Name Dose Route Start Last Admin Trade Name Freq PRN Reason Stop Dose Admin Acetaminophen 1,000 mg 02/05/25 05:13 02/07/25 05:08 Acetaminophen 500 Mg Tablet PO 03/07/25 05:14 1,000 mg Q6H PRN Administration fever >99.9 Citric Acid/Sodium Citrate 30 ml 02/06/25 09:45 02/06/25 20:36 Citric Acid/Sodium Citr 15 Ml Udc (Bicitra) PO 03/08/25 09:44 30 ml BID ANGÉLICA Administration Dextrose 25 ml 02/05/25 12:45 Dextrose 50%-Water Inj 50 Ml Syringe IV 03/07/25 12:44 Q15MIN PRN BG 50-70 responsive npo pt Dextrose 50 ml 02/05/25 12:45 Dextrose 50%-Water Inj 50 Ml Syringe IV 03/07/25 12:44 Q15MIN PRN BG <50 OR BG <70 & pt unresponsive Dextrose 25 ml 02/06/25 08:35 Dextrose 50%-Water Inj 50 Ml Syringe IV [id number] PRN Blood Sugar - Low Doxycycline Hyclate 100 mg 02/05/25 10:45 02/07/25 08:14 Doxycycline 100 Mg Tablet PO 02/12/25 10:44 100 mg BID ANGÉLICA Administration Enoxaparin Sodium 30 mg 02/05/25 21:00 02/06/25 20:36 Enoxaparin Sod Inj 30 Mg/0.3 Ml Syringe SC 02/19/25 20:59 30 mg QPM ANGÉLICA Administration Famotidine 20 mg 02/05/25 09:00 02/07/25 08:14 Famotidine Inj 10 Mg/Ml Vial 2 Ml IVP 03/07/25 08:59 20 mg BID ANGÉLICA Administration Glucagon 1 mg 02/05/25 12:45 Glucagon Inj 1 Mg Vial IM Q15MIN PRN BG <70, and no IV access Norepinephrine/Dextrose 8 mg in 250 mls @ 9.993 mls/hr 02/05/25 01:38 02/06/25 14:43 Levophed In D5w 8mg/250ml IV 03/07/25 01:37 0 mcg/kg/min .Q24H PRN 0 mls/hr PER PROTOCOL Titration Protocol 0.05 MCG/KG/MIN Cefepime HCl 1 gm/ Sodium 50 mls @ 100 mls/hr 02/05/25 05:49 02/07/25 07:52 Chloride IV 02/12/25 05:48 Infused Q8HR ANGÉLICA Infusion Potassium Chloride 10 meq in 100 mls @ 100 mls/hr 02/06/25 08:35 02/07/25 07:52 Kcl Ivpb IV 03/08/25 08:34 Infused .Q1H PRN Infusion IF POTASSIUM LESS THAN 3.3 Magnesium Sulfate 2 gm in 50 mls @ 25 mls/hr 02/06/25 08:35 Magnesium Sulfate Ivpb IV 03/08/25 08:34 .Q2H PRN PER DKA PROTOCOL Insulin Human Regular 100 unit 100 mls @ 10.659 mls/hr 02/06/25 08:35 02/07/25 07:52 / IV Miscellaneous Supplies IV 03/08/25 08:34 0 unit/kg/hr On Hold: 02/07/25 07:30 .Q9H23M PRN 0 mls/hr PER PROTOCOL Titration Protocol 0.1 UNIT/KG/HR Dextrose/Lactated Ringer's 1,000 mls @ 250 mls/hr 02/06/25 08:35 02/07/25 07:52 D5-Lr IV 03/08/25 08:34 Infused .Q4H PRN Infusion PER PROTOCOL Lactated Ringer's 1,000 mls @ 250 mls/hr 02/06/25 08:35 02/06/25 09:26 Lactated Ringers IV 02/07/25 08:34 250 mls/hr .Q4H PRN Administration PER PROTOCOL Potassium Chloride 20 meq/ 1,010 mls @ 250 mls/hr 02/06/25 08:35 02/07/25 05:00 Lactated Ringer's IV 03/08/25 08:34 0 mls/hr .Q4H3M PRN Infusion K LEVEL 3.3 TO 5.3mM/L Potassium Chloride 40 meq/ 1,020 mls @ 250 mls/hr 02/06/25 08:35 02/06/25 22:00 Lactated Ringer's IV 03/08/25 08:34 0 mls/hr .Q4H5M PRN Infusion K LEVEL < 3.3 mM/L Potassium Chloride 40 meq/ 1,020 mls @ 250 mls/hr 02/06/25 08:35 02/06/25 17:25 Dextrose/Lactated Ringer's IV 03/08/25 08:34 250 mls/hr .Q4H5M PRN Administration K LEVEL < 3.3mM/L Potassium Cl/Dextrose/Lact Ringer's 20 meq in 1,000 mls @ 250 mls/hr 02/06/25 08:35 02/07/25 07:52 Kcl 20 Meq/L In D5-Lr IV Infused .Q4H PRN Infusion K LEVEL 3.3 TO 5.3 mM/L Potassium Chloride 10 meq in 100 mls @ 50 mls/hr 02/06/25 08:35 Kcl Ivpb IV 03/08/25 08:34 PRN PRN K LEVEL 3.3 to 5.3 & BG > 200 Potassium Phosphate 15 mmol in 250 mls @ 62.5 mls/hr 02/06/25 08:35 Pot Phos 15 Mmol In Ns 250 Ml IV 03/08/25 08:34 PRN PRN Phosphate <= 1mg/dL Sodium Phosphate 15 mmol/ 255 mls @ 62.5 mls/hr 02/06/25 08:35 Sodium Chloride IV 03/08/25 08:34 .Q4H5M PRN Phosphate <= 1mg/dL and K> than 5.3 Potassium Chloride 20 meq/ 1,010 mls @ 250 mls/hr 02/06/25 16:58 02/07/25 07:52 Dextrose/Lactated Ringer's IV 03/08/25 16:57 0 mls/hr .Q4H3M PRN Infusion K LEVEL 3.3 TO 5.3 mM/L Magnesium Sulfate 4 gm in 50 mls @ 12.5 mls/hr 02/07/25 06:20 02/07/25 06:42 Magnesium Sulfate Ivpb IV 02/07/25 10:19 12.5 mls/hr X1 ONE Administration Insulin Degludec 15 unit 02/07/25 06:25 02/07/25 06:51 Insulin Degludec 5 Unit/0.05 Ml (Per 5 Units) SC 03/09/25 06:24 15 unit QDAY ANGÉLICA Administration Insulin Human Lispro 0 unit 02/07/25 07:30 02/07/25 07:56 Insulin Lispro (Admelog) 1 Unit/0.01 Ml Unit SC 03/09/25 07:29 8 unit ACHS ANGÉLICA Administration Protocol Insulin Human Lispro 5 unit 02/07/25 07:30 02/07/25 07:55 Insulin Lispro (Admelog) 1 Unit/0.01 Ml Unit SC 03/09/25 07:29 5 unit AC ANGÉLICA Administration Metoclopramide HCl 5 mg 02/06/25 01:30 02/07/25 05:08 Metoclopramide Inj 5 Mg/Ml Vial 2 Ml IVP 03/08/25 01:29 5 mg Q6HR ANGÉLICA Administration Protocol Midodrine 10 mg 02/06/25 14:00 02/07/25 05:14 Midodrine 5 Mg Tablet PO 03/08/25 13:59 10 mg Q8HR ANGÉLICA Administration Phenazopyridine HCl 100 mg 02/06/25 08:00 02/07/25 07:56 Phenazopyridine Hcl 100 Mg Tablet PO 02/07/25 17:31 100 mg TIDWM ANGÉLICA Administration Phenyleph/Shark Oil/Min Oil/Petrol 0 gm 02/06/25 09:26 Preparation H Oint 30 Gm Tube [place] 03/08/25 09:25 BID PRN HEMORRHOIDS Potassium Chloride 20 meq 02/07/25 08:30 Potassium Chloride 20 Meq Tabcr PO 02/07/25 08:31 X1 ONE Sodium Bicarbonate 50 ml 02/06/25 08:35 Sodium Bicarb Inj 8.4% Syr 50 Ml Syringe IV 03/08/25 08:34 Q4HR PRN For ph <= to 7.0 Plan Patient is a 54-year-old male admitted for starvation ketoacidosis and septic shock requiring pressors. Found to have DKA with hypovolemic/distributive shock. DKA and shock resolved 02/07, planning for downgrade to telemetry. NEURO #Acute metabolic encephalopathy -resolved Dx: - Ammonia <10 - Likely in the setting of ketoacidosis, pH 7.17 and bicarb 11.2 - on admission, patient was AO x 4, slightly drowsy RRx: - Mentation continues to improve with fluids and electrolyte repletion CVS #Monomorphic V.Tach (resolved) --> sinus Dx -Repeat EKG 02/05 in the morning showed QTc 479 with sinus rhythm -EKG 02/06 showed sinus rhythm -TTE 02/05 showed EF 55-60% with Normal L & R ventricular size and function Rx - IV Amiodarone was given and no repeat episode noted and fisheries technician recommended to discontinue amiodarone - monitor electrolytes closely - Keep magnesium above 2 and potassium above 4 - Continuous monitoring for chest pain or discomfort along with classroom monitor - QTc was prolonged on EKG/ avoid QTc prolonging agent #Shock, Likely Distributive vs. hypovolemic, Resolved Dx: - Likely in the setting of acute ketoacidosis and lactic acidosis, no overt signs of infection, ProCal negative. Patient is afebrile. Hypovolemic shock suspected with DKA. Patient transiently needed some pressors for distributive look in addition due to acidosis, no longer on pressors as of 02/07. - BP 70s/40s initially--> 120s/60s after Levophed --> taken off Levophed overnight --> put back on Levophed 02/06 AM temporarily for BP 60s/40s. -Currently maintaining BP with fluid and midodrine IV 10 mg po q8hr Rx: - Continue midodrine 10 mg IV po q8hr Resp No active issue ENDO #DKA, resolved #Starvation Ketoacidosis, less likely #T2 IDDM Dx: - History of type 2 insulin-dependent diabetes. - Home medication: Jardiance 25 mg daily, metformin 1 g twice daily, insulin Levemir, insulin regular - A1c 11.6 - Folate levels: 22.07. BHB: 4.8 --->6.3 - 02/05 Per speech eval's: Patient is able to participate in eating activity. Demonstrating slow but functional rotatory jaw grading and lingual sweeps with soft minced food items. No signs and symptoms of laryngeal penetration or vocal congestion. No coughing. Per recommendations: Continue minced diet until mentation is baseline due to lack of dentition and slow mgt. Advance as tolerated. - Pending thiamine level - 02/07 anion gap closed, bicarb > 150, glucose below 200 Rx: - Discontinued DKA protocol 02/07 - Started Degludec 15 u SC qd, Lispro 5 u w/ meals - Started low carb consistent diet - Monitor & replete electrolytes as needed - Hypoglycemia protocol in place - Referral to registered dietitian, appreciate recs RRx: - Health equity referral for safety, knowledge deficit - Advisable to prescribe continuous glucose monitor on discharge #Subclinical hypothyroidism Dx: -TSH: 5.89, free T4: 1.44 Rx: -Outpatient follow-up PULM No active problems ID #Symptomatic UTI versus prostatitis, improving Dx: Patient endorses dysuria since ~ 01/31 UA negative for nitrates, esterase and no bacteria. Suprapubic tenderness with left lower quadrant tenderness. CT abdomen showed cystitis with bladder wall thickening. STI serologies negative, HIV non reactive Urine cx Final negative Discontinued cefepime 02/07 Rx: - Continue with IV antibiotics including doxycycline - Phenazopyridine for burning during urination RENAL #Anion gap metabolic acidosis with NAGMA with appropriate respiratory compensation 2/2 DKA, resolved #Distal RTA 2/2 Diabetes, resolved #Prerenal LILIANA, resolved #Hypokalemia #Hypophosphatemia, resolved Dx: - On admission, K 2.9, BHB 4.8 , Glucose 121, anion gap 22, lactic acid 4.9 -02/05: Bhatia formula: pco2: 26-30 Delta gap:0.8 -Urine electrolytes showed positive anion gap. - 02/06 DKA protocol started, discontinued 02/07. - 02/07: Potassium 3.1 despite DKA protocol potassium fluids yesterday and overnight. Rx: - Ordered KCl oral tablets (40 mg & 20 mg), ordered 40 mg in afternoon - Avoid nephrotoxic agents RRx: -Will follow up potassium levels GI/Hep/ #Constipation, resolving Dx: - Patient came in with severe constipation, not being able to go to the bathroom for ~15 days. - Patient was given lactulose and enema which led to large BM's 02/06. - Patient's abdominal pain much better after BM. Rx: - Will continue to monitor for constipation. #Concern for UTI/prostatitis, improving Dx: -Patient endorsed burning sensation during urination and left lower quadrant tenderness. He has been having decreased p.o. intake with difficulty swallowing. -Of note, amylase 199, lipase 342 -CT abdomen showed bladder wall thickening/cystitis. -Elevated CRP and ESR -STI serologies negative, HIV non reactive -Urine cx negative; blood cx 02/05 [id number], blood cx 02/06 pending Rx: - Continue antibiotics and continue phenazopyridine for urinary analgesia - Follow-up blood cultures #Decreased p.o. intake, improving Due to abdominal pain with prolonged constipation. Denies N/V 02/06. Dx: -Due to ketoacidosis being found to be due to DKA, no longer on regular diet. Rx: -Ordered low carb diet RRx: -Patient tolerating diet well today, had mild nausea earlier in the morning HEME/ONC #Anemia likely hemodilution, resolved Dx: - 02/06: WBC 8.0 (10.4), Hb 12.7 (14.7), PLT 178 (237) - 02/07 continue to be stable Rx: - Monitor for signs of bleeding ICU Health maintenance: Dispo: Continuing management in ICU for DKA Diet: Low carb consistent DVT ppx: Enoxaparin 40mg SC daily GI ppx: Famotidine 20 mg twice daily IV lines: 2 pIV Code status: FULL CODE Patient plan of care was discussed with the attending physician, Dr. Gutierrez & senior resident Dr. Sage CLEMENS PGY-1
[2025-02-07 09:35] LABS: Lactate (Lactic Acid) 1.3 mMol/L (0.4-2.0)
[2025-02-07 09:38] LABS: Beta Hydroxybutyrate 1.2 mmol/L (<0.6)
--- NOTE | 2025-02-07 09:46 | PD.RESPRO ---
Documentation for date of: 02/07/25 Subjective Subjective Interval history: Overnight, repeat BMP showed potassium at 3.3, repleted 10 mill equivalents, repeat BMP at 5 AM showed potassium 3.1, repleted with Toradol 50 mill equivalents potassium. Also noted to have some PVCs on telemetry, likely due to low magnesium, repleted with 4 mg around 6:42 AM. Otherwise patient remains in sinus rhythm. Patient was seen and assessed at bedside. Complained of heartburn sensation and mild nausea after eating breakfast, pointed to mid epigastric region. Denies any shortness of breath, sharp chest pain, palpitations. Blood pressure has been very labile, 95/62 this morning however also states between 95-1 51 systolics. Was weaned off Levophed at 3 PM yesterday. Patient is net +[phone]. Potassium 3.1, magnesium 1.7, recommend to replete judiciously as patient had short episode of SVT on admission. Exam Vital Signs Temp Pulse Resp BP Pulse Ox O2 Del Method O2 Flow Rate 97.0 F 76 13 126/88 H 95 Room Air 3 02/07/25 08:00 02/07/25 09:00 02/07/25 09:00 02/07/25 09:00 02/07/25 09:00 02/07/25 08:00 02/05/25 05:56 Narrative Exam Physical Exam General: Awake and in no acute distress. Conversational and non-toxic appearing. Obese Russian speaking male. HEENT: Normocephalic, atraumatic, mucous membranes moist. Heart: Regular rate and rhythm, normal S1 and S2, no murmurs appreciated. Lungs: Clear to auscultation with no wheezing or crackles. Abdomen: Soft, nondistended, nontender, positive bowel sounds. No guarding or rebound tenderness. Neurologic: Alert and oriented x3, no gross neurological deficit, and patient able to move all 4 extremities. Extremities: No edema. Left thumb amputation. Skin: No rash or ecchymoses. Objective Labs 02/07/25 04:44 02/07/25 09:15 Labs: Laboratory Results - last 24 hr 02/05/25 02/06/25 02/06/25 01:52 09:45 12:09 WBC RBC Hgb Hct MCV MCH MCHC RDW Std Deviation Plt Count Neut % (Auto) Lymph % (Auto) [place] % (Auto) Eos % (Auto) Baso % (Auto) Neut # (Auto) Lymph # (Auto) [place] # (Auto) Eos # (Auto) Baso # (Auto) Immature Gran # (Auto) Absolute Nucleated RBC Immature Gran % Nucleated RBC % Sodium Potassium Chloride Carbon Dioxide Anion Gap BUN Creatinine Estim Creat Clear Calc eGFR BUN/Creatinine Ratio Glucose Calculated Osmolality Lactic Acid 1.4 3.5 H Calcium Corrected Calcium Phosphorus Magnesium Albumin Beta-Hydroxybutyrate/Acetoacetate Chlam trachomat DNA PCR Negative N.gonorrhoeae DNA (PCR) Negative Trichomonas DNA Probe Negative 02/06/25 02/06/25 02/06/25 13:16 16:30 20:45 WBC RBC Hgb Hct MCV MCH MCHC RDW Std Deviation Plt Count Neut % (Auto) Lymph % (Auto) [place] % (Auto) Eos % (Auto) Baso % (Auto) Neut # (Auto) Lymph # (Auto) [place] # (Auto) Eos # (Auto) Baso # (Auto) Immature Gran # (Auto) Absolute Nucleated RBC Immature Gran % Nucleated RBC % Sodium 133 L 142 Potassium 3.3 L 2.9 L Chloride 103 107 Carbon Dioxide 11.8 L* 20.4 Anion Gap 18 H 15 BUN < 5 L < 5 L Creatinine 1.2 1.1 Estim Creat Clear Calc 82.4 89.9 eGFR > 60 > 60 BUN/Creatinine Ratio 4 L 5 L Glucose 105 D Calculated Osmolality 344 H 280 Lactic Acid 1.4 1.4 Calcium 7.4 L 8.5 Corrected Calcium Cancelled 9.1 Phosphorus 1.2 L 2.1 L Magnesium 1.2 L 2.1 Albumin Cancelled 3.3 L Beta-Hydroxybutyrate/Acetoacetate Chlam trachomat DNA PCR N.gonorrhoeae DNA (PCR) Trichomonas DNA Probe 02/06/25 02/07/25 02/07/25 21:08 00:58 04:44 WBC 7.7 RBC 4.18 L Hgb 12.5 L Hct 37.9 L MCV 91 MCH 29.9 MCHC 33.0 RDW Std Deviation 45.1 H Plt Count 163 Neut % (Auto) 56 Lymph % (Auto) 30 [place] % (Auto) 11 Eos % (Auto) 2 Baso % (Auto) 0 Neut # (Auto) 4.4 Lymph # (Auto) 2.3 [place] # (Auto) 0.9 H Eos # (Auto) 0.1 Baso # (Auto) 0.0 Immature Gran # (Auto) 0.05 H Absolute Nucleated RBC 0.00 Immature Gran % 1 H Nucleated RBC % 0 Sodium 138 140 141 Potassium 3.6 D 3.3 L 3.1 L Chloride 105 107 106 Carbon Dioxide 19.3 L 20.2 22.9 Anion Gap 14 13 12 BUN < 5 L < 5 L < 5 L Creatinine 1.1 1.0 0.9 Estim Creat Clear Calc 89.9 98.9 109.9 eGFR > 60 > 60 > 60 BUN/Creatinine Ratio 5 L 5 L 6 L Glucose 184 H D 193 H 175 H Calculated Osmolality 277 281 282 Lactic Acid 1.3 1.2 Calcium 9.0 8.1 L 8.0 L Corrected Calcium 9.4 8.9 8.9 Phosphorus 2.1 L 2.1 L 2.5 Magnesium 1.7 1.8 1.7 Albumin 3.5 3.0 L D 2.9 L Beta-Hydroxybutyrate/Acetoacetate Chlam trachomat DNA PCR N.gonorrhoeae DNA (PCR) Trichomonas DNA Probe 02/07/25 09:15 WBC RBC Hgb Hct MCV MCH MCHC RDW Std Deviation Plt Count Neut % (Auto) Lymph % (Auto) [place] % (Auto) Eos % (Auto) Baso % (Auto) Neut # (Auto) Lymph # (Auto) [place] # (Auto) Eos # (Auto) Baso # (Auto) Immature Gran # (Auto) Absolute Nucleated RBC Immature Gran % Nucleated RBC % Sodium Potassium Chloride Carbon Dioxide Anion Gap BUN Creatinine Estim Creat Clear Calc eGFR BUN/Creatinine Ratio Glucose Calculated Osmolality Lactic Acid 1.3 Calcium Corrected Calcium Phosphorus Magnesium Albumin Beta-Hydroxybutyrate/Acetoacetate 1.2 H Chlam trachomat DNA PCR N.gonorrhoeae DNA (PCR) Trichomonas DNA Probe ABG Interpretation ABG results: 02/05/25 02/06/25 03:43 04:40 ABG pH 7.17 L* ABG pCO2 26 L ABG pO2 85 ABG HCO3 10 L ABG O2 Saturation 96 ABG Base Excess -17 L VBG pH 7.23 L VBG pCO2 27 L VBG pO2 38 VBG Base Excess -15 L Quality Measures Quality Measures VTE prophylaxis (Lovenox) Assessment & Plan Assessment Current Active Medications: Generic Name Dose Route Start Last Admin Trade Name Freq PRN Reason Stop Dose Admin Acetaminophen 1,000 mg 02/05/25 05:13 02/07/25 05:08 Acetaminophen 500 Mg Tablet PO 03/07/25 05:14 1,000 mg Q6H PRN Administration fever >99.9 Citric Acid/Sodium Citrate 30 ml 02/06/25 09:45 02/06/25 20:36 Citric Acid/Sodium Citr 15 Ml Udc (Bicitra) PO 03/08/25 09:44 30 ml BID ANGÉLICA Administration Dextrose 25 ml 02/05/25 12:45 Dextrose 50%-Water Inj 50 Ml Syringe IV 03/07/25 12:44 Q15MIN PRN BG 50-70 responsive npo pt Dextrose 50 ml 02/05/25 12:45 Dextrose 50%-Water Inj 50 Ml Syringe IV 03/07/25 12:44 Q15MIN PRN BG <50 OR BG <70 & pt unresponsive Dextrose 25 ml 02/06/25 08:35 Dextrose 50%-Water Inj 50 Ml Syringe IV On Hold: 02/07/25 08:28 [id number] PRN Comment: DKA PROTOCOL ON HOLD. Blood Sugar - Low SWITCHED TO INSULIN SC INJECTIONS. Doxycycline Hyclate 100 mg 02/05/25 10:45 02/07/25 08:14 Doxycycline 100 Mg Tablet PO 02/12/25 10:44 100 mg BID ANGÉLICA Administration Enoxaparin Sodium 30 mg 02/05/25 21:00 02/06/25 20:36 Enoxaparin Sod Inj 30 Mg/0.3 Ml Syringe SC 02/19/25 20:59 30 mg QPM ANGÉLICA Administration Famotidine 20 mg 02/05/25 09:00 02/07/25 08:14 Famotidine Inj 10 Mg/Ml Vial 2 Ml IVP 03/07/25 08:59 20 mg BID ANGÉLICA Administration Glucagon 1 mg 02/05/25 12:45 Glucagon Inj 1 Mg Vial IM Q15MIN PRN BG <70, and no IV access Norepinephrine/Dextrose 8 mg in 250 mls @ 9.993 mls/hr 02/05/25 01:38 02/06/25 14:43 Levophed In D5w 8mg/250ml IV 03/07/25 01:37 0 mcg/kg/min .Q24H PRN 0 mls/hr PER PROTOCOL Titration Protocol 0.05 MCG/KG/MIN Potassium Chloride 10 meq in 100 mls @ 100 mls/hr 02/06/25 08:35 02/07/25 07:52 Kcl Ivpb IV 03/08/25 08:34 Infused .Q1H PRN Infusion IF POTASSIUM LESS THAN 3.3 Magnesium Sulfate 2 gm in 50 mls @ 25 mls/hr 02/06/25 08:35 Magnesium Sulfate Ivpb IV 03/08/25 08:34 .Q2H PRN PER DKA PROTOCOL Insulin Human Regular 100 unit 100 mls @ 10.659 mls/hr 02/06/25 08:35 02/07/25 07:52 / IV Miscellaneous Supplies IV 03/08/25 08:34 0 unit/kg/hr On Hold: 02/07/25 07:30 .Q9H23M PRN 0 mls/hr PER PROTOCOL Titration Protocol 0.1 UNIT/KG/HR Dextrose/Lactated Ringer's 1,000 mls @ 250 mls/hr 02/06/25 08:35 02/07/25 07:52 D5-Lr IV 03/08/25 08:34 Infused .Q4H PRN Infusion PER PROTOCOL Potassium Chloride 20 meq/ 1,010 mls @ 250 mls/hr 02/06/25 08:35 02/07/25 05:00 Lactated Ringer's IV 03/08/25 08:34 0 mls/hr .Q4H3M PRN Infusion K LEVEL 3.3 TO 5.3mM/L Potassium Chloride 40 meq/ 1,020 mls @ 250 mls/hr 02/06/25 08:35 02/06/25 22:00 Lactated Ringer's IV 03/08/25 08:34 0 mls/hr .Q4H5M PRN Infusion K LEVEL < 3.3 mM/L Potassium Chloride 40 meq/ 1,020 mls @ 250 mls/hr 02/06/25 08:35 02/06/25 17:25 Dextrose/Lactated Ringer's IV 03/08/25 08:34 250 mls/hr .Q4H5M PRN Administration K LEVEL < 3.3mM/L Potassium Cl/Dextrose/Lact Ringer's 20 meq in 1,000 mls @ 250 mls/hr 02/06/25 08:35 02/07/25 07:52 Kcl 20 Meq/L In D5-Lr IV Infused .Q4H PRN Infusion K LEVEL 3.3 TO 5.3 mM/L Potassium Chloride 10 meq in 100 mls @ 50 mls/hr 02/06/25 08:35 Kcl Ivpb IV 03/08/25 08:34 PRN PRN K LEVEL 3.3 to 5.3 & BG > 200 Potassium Phosphate 15 mmol in 250 mls @ 62.5 mls/hr 02/06/25 08:35 Pot Phos 15 Mmol In Ns 250 Ml IV 03/08/25 08:34 PRN PRN Phosphate <= 1mg/dL Sodium Phosphate 15 mmol/ 255 mls @ 62.5 mls/hr 02/06/25 08:35 Sodium Chloride IV 03/08/25 08:34 .Q4H5M PRN Phosphate <= 1mg/dL and K> than 5.3 Potassium Chloride 20 meq/ 1,010 mls @ 250 mls/hr 02/06/25 16:58 02/07/25 07:52 Dextrose/Lactated Ringer's IV 03/08/25 16:57 0 mls/hr .Q4H3M PRN Infusion K LEVEL 3.3 TO 5.3 mM/L Magnesium Sulfate 4 gm in 50 mls @ 12.5 mls/hr 02/07/25 06:20 02/07/25 06:42 Magnesium Sulfate Ivpb IV 02/07/25 10:19 12.5 mls/hr X1 ONE Administration Insulin Degludec 15 unit 02/07/25 06:25 02/07/25 06:51 Insulin Degludec 5 Unit/0.05 Ml (Per 5 Units) WI 03/09/25 06:24 15 unit QDAY ANGÉLICA Administration Insulin Human Lispro 0 unit 02/07/25 07:30 02/07/25 07:56 Insulin Lispro (Admelog) 1 Unit/0.01 Ml Unit SC 03/09/25 07:29 8 unit ACHS ANGÉLICA Administration Protocol Insulin Human Lispro 5 unit 02/07/25 07:30 02/07/25 07:55 Insulin Lispro (Admelog) 1 Unit/0.01 Ml Unit SC 03/09/25 07:29 5 unit AC ANGÉLICA Administration Metoclopramide HCl 5 mg 02/06/25 01:30 02/07/25 05:08 Metoclopramide Inj 5 Mg/Ml Vial 2 Ml IVP 03/08/25 01:29 5 mg Q6HR ANGÉLICA Administration Protocol Midodrine 10 mg 02/06/25 14:00 02/07/25 05:14 Midodrine 5 Mg Tablet PO 03/08/25 13:59 10 mg Q8HR ANGÉLICA Administration Phenazopyridine HCl 100 mg 02/06/25 08:00 02/07/25 07:56 Phenazopyridine Hcl 100 Mg Tablet PO 02/07/25 17:31 100 mg TIDWM ANGÉLICA Administration Phenyleph/Shark Oil/Min Oil/Petrol 0 gm 02/06/25 09:26 Preparation H Oint 30 Gm Tube [place] 03/08/25 09:25 BID PRN HEMORRHOIDS Potassium Chloride 40 meq 02/07/25 14:30 Potassium Chloride 20 Meq Tabcr PO 02/07/25 14:31 X1 ONE Sodium Bicarbonate 50 ml 02/06/25 08:35 Sodium Bicarb Inj 8.4% Syr 50 Ml Syringe IV 03/08/25 08:34 Q4HR PRN For ph <= to 7.0 Plan Patient is a 54-year-old male with past medical history of type II IDDM, primary hypertension and recent right ankle ORIF, who presented on 02/05/25 for altered mentation, found to be in DKA. Cardiology consulted for brief episode of monomorphic ventricular tachycardia. #Monomorphic nonsustained ventricular tachycardia NSVT #Acute hypokalemia Had 6 second episode of monomorphic ventricular tachycardia. Patient denies personal cardiac history and has never seen a tapper supervisor. Denies any family history of cardiac disease. Potassium 2.9 on admission. Now converted back to sinus rhythm on telemetry, no other episodes noted s/p amiodarone. The NSVT likely secondary to AGMA, DKA and shock below. TTE 02/05/25: Normal left ventricular size and function. Approximate ejection fraction is 55-60%. Grade I diastolic dysfunction. Normal right ventricular size and function. Mild mitral regurgitation and tricuspid regurgitation. The inferior vena cava not well visualized. No pericardial effusion. Plan: - Continue telemetry monitoring to monitor for any kind of further ventricular tachycardia episodes until the echocardiogram is completed to evaluate LV function and RV function as well as diastolic function. - Start low-dose metoprolol tartrate if BP is stable. - Keep potassium >4 and magnesium >2 for cardiac membrane stabilization. #Hypotension #Shock, hypovolemic versus distributive #Starvation ketoacidosis #Acute hypokalemia #Hx insulin dependent DM type 2 #STEVEN Presented with BP of 68/47. Per history, has not been taking his insulin for the past 2 months, until recently. Labs remarkable for lactic acid 4.9, ESR 66, CRP 1.3. K 2.9, BHB 4.8. Anion gap 22, pH 7.17, CO2 26 and bicarb 11.2, glucose 121, lactic acid 4.9. UA remarkable for 4+ glucosuria and 4+ ketonuria. Likely hypovolemic secondary to osmotic diuresis versus secondary to acute ketoacidosis and lactic acidosis. - Midodrine 5 mg TID #Pre-renal LILIANA, resolved #Hemoconcentration, resolved #Normocytic anemia On admission, creatinine 1.4, baseline 0.6-0.7. 02/06/25: Creatinine improved to 0.9. 02/07/25: Hemoconcentration was likely secondary to dehydration, however now Hgb dropped to 12.5. Note all cell lines have decreased so possibly dilutional factor. - Gentle IV fluid resuscitation. Monitor for signs of fluid overload, if increased shortness of breath or peripheral swelling, diurese with IV Lasix 20 x1. - Consider anemia work up per primary team #UTI, symptomatic #Lower abdominal pain #Leukocytosis, likely reactive #Concern for oropharyngeal dysphagia,resolved #Decreased p.o. intake #Acute metabolic encephalopathy, resolved #Subclinical hypothyroidism Thank you for your consultation, please do not hesitate to reach out if you have any question or concern Patient plan of care was discussed with the senior resident, -, and attending physician, Dr. Tin Leo, PGY-1 Attending Provider Attestation/Addendum I have personally seen and examined the patient separately on the above date of service and discussed the plan of care with the resident. I reviewed the resident Dr. Bambi Leo consultation progress note and agree with the resident findings and plan in the note above and have also edited the documentation to reflect my findings and plan. Oscar Celeste M.D. Interventional Cardiology
[2025-02-07 09:57] LABS: Albumin, Serum 2.9 gm/dL (3.5-5.0); Anion Gap 11 (7-16); BUN/Creatinine Ratio 6 Ratio (12-20); Blood Urea Nitrogen < 5 mg/dL (9-23); Calcium 8.1 mg/dL (8.3-10.6); Calcium (Corrected) 9.0 mg/dL (8.5-10.1); Carbon Dioxide 22.1 mMol/L (20.0-31.0); Chloride 106 mMol/L (98-107); Creatinine (Component) 0.8 mg/dL (0.6-1.3); Estimated Creatinine Clearance 127.7 mL/min (>60); Glucose 129 mg/dL (74-106); Magnesium 2.3 mg/dL (1.6-2.6); Osmolality,Calculated 276 (275-295); Phosphorous 2.1 mg/dL (2.4-5.1); Potassium 3.3 mMol/L (3.4-5.1); Sodium 139 mMol/L (136-145); eGFR > 60 See Note
[2025-02-07] MEDS: CITRIC ACID/SODIUM CITR 15 ML UDC (BICITRA) 30 ML PO (10:25)
--- NOTE | 2025-02-07 11:46 | PD.INTPROG ---
Documentation for date of: 02/07/25 Subjective Subjective Interval history: This is a 54-year-old male admitted to the ICU with undifferentiated shock. Patient was also noted to have DKA. He has been on an insulin drip and his anion gap is closed. This morning he was transitioned to subcu insulin. His abdominal pain has improved. He had originally complained of constipation however has had multiple bowel movements with the assistance of a laxative. His shock is resolved and he is off of pressors. This morning he has no complaints and feels well. Continues to have some nausea but no active vomiting. Critical Care Note Critical care time (min.): 0 Exam Vital Signs Temp Pulse Resp BP Pulse Ox O2 Del Method O2 Flow Rate 97.0 F 76 13 126/88 H 95 Room Air 3 02/07/25 08:00 02/07/25 09:00 02/07/25 09:00 02/07/25 09:00 02/07/25 09:00 02/07/25 08:00 02/05/25 05:56 Narrative Exam Gen- NAD, AAOx3, obese body habitus, HEENT- NC/AT, mucosa hydrated, sclera anicteric, EOMI Chest- LCTAB, HRRR, no increase in WOB Abd- obese , s/nt/bs+ Ext - no edema, pulses palp, no clubbing, no mottling, moves all 4 Physical Exam Completion Physical Exam Complete?: Yes Objective - Educator Senior Clinical Labs 02/07/25 04:44 02/07/25 09:15 Labs: Laboratory Results - last 24 hr 02/06/25 02/06/25 02/06/25 12:09 13:16 16:30 WBC RBC Hgb Hct MCV MCH MCHC RDW Std Deviation Plt Count Neut % (Auto) Lymph % (Auto) [place] % (Auto) Eos % (Auto) Baso % (Auto) Neut # (Auto) Lymph # (Auto) [place] # (Auto) Eos # (Auto) Baso # (Auto) Immature Gran # (Auto) Absolute Nucleated RBC Immature Gran % Nucleated RBC % Sodium 133 L 142 Potassium 3.3 L 2.9 L Chloride 103 107 Carbon Dioxide 11.8 L* 20.4 Anion Gap 18 H 15 BUN < 5 L < 5 L Creatinine 1.2 1.1 Estim Creat Clear Calc 82.4 89.9 eGFR > 60 > 60 BUN/Creatinine Ratio 4 L 5 L Glucose 105 D Calculated Osmolality 344 H 280 Lactic Acid 3.5 H 1.4 Calcium 7.4 L 8.5 Corrected Calcium Cancelled 9.1 Phosphorus 1.2 L 2.1 L Magnesium 1.2 L 2.1 Albumin Cancelled 3.3 L Beta-Hydroxybutyrate/Acetoacetate 02/06/25 02/06/25 02/07/25 20:45 21:08 00:58 WBC RBC Hgb Hct MCV MCH MCHC RDW Std Deviation Plt Count Neut % (Auto) Lymph % (Auto) [place] % (Auto) Eos % (Auto) Baso % (Auto) Neut # (Auto) Lymph # (Auto) [place] # (Auto) Eos # (Auto) Baso # (Auto) Immature Gran # (Auto) Absolute Nucleated RBC Immature Gran % Nucleated RBC % Sodium 138 140 Potassium 3.6 D 3.3 L Chloride 105 107 Carbon Dioxide 19.3 L 20.2 Anion Gap 14 13 BUN < 5 L < 5 L Creatinine 1.1 1.0 Estim Creat Clear Calc 89.9 98.9 eGFR > 60 > 60 BUN/Creatinine Ratio 5 L 5 L Glucose 184 H D 193 H Calculated Osmolality 277 281 Lactic Acid 1.4 1.3 Calcium 9.0 8.1 L Corrected Calcium 9.4 8.9 Phosphorus 2.1 L 2.1 L Magnesium 1.7 1.8 Albumin 3.5 3.0 L D Beta-Hydroxybutyrate/Acetoacetate 02/07/25 02/07/25 04:44 09:15 WBC 7.7 RBC 4.18 L Hgb 12.5 L Hct 37.9 L MCV 91 MCH 29.9 MCHC 33.0 RDW Std Deviation 45.1 H Plt Count 163 Neut % (Auto) 56 Lymph % (Auto) 30 [place] % (Auto) 11 Eos % (Auto) 2 Baso % (Auto) 0 Neut # (Auto) 4.4 Lymph # (Auto) 2.3 [place] # (Auto) 0.9 H Eos # (Auto) 0.1 Baso # (Auto) 0.0 Immature Gran # (Auto) 0.05 H Absolute Nucleated RBC 0.00 Immature Gran % 1 H Nucleated RBC % 0 Sodium 141 139 Potassium 3.1 L 3.3 L Chloride 106 106 Carbon Dioxide 22.9 22.1 Anion Gap 12 11 BUN < 5 L < 5 L Creatinine 0.9 0.8 Estim Creat Clear Calc 109.9 127.7 eGFR > 60 > 60 BUN/Creatinine Ratio 6 L 6 L Glucose 175 H 129 H Calculated Osmolality 282 276 Lactic Acid 1.2 1.3 Calcium 8.0 L 8.1 L Corrected Calcium 8.9 9.0 Phosphorus 2.5 2.1 L Magnesium 1.7 2.3 Albumin 2.9 L 2.9 L Beta-Hydroxybutyrate/Acetoacetate 1.2 H Assessment & Plan Additional Assessment Additional Assessment: In summary this is a 54yo M with shock a/p RADIATION ONCOLOGY THERAPIST stable CV Shock- currently resolved Resp stable Renal HypoK- replete 60meq PO this AM and 40meq PO this afternoon HypoPhos- replete ? RTA- pt with + UAG and delta/delta gap which suggested underlying NAGMA as well - cont Bicitra for now - will need to fu with labs 1 week after DC home GI Nausea- prn zofran Constipation- improved after lactulose Hypoalbuminemia- check u prot/cr ratio Endo DKA- AG has closed and is off insulin gtt now and on subq insulin - low level beta hydroxy noted on AM labs today - anticipate ongoing improvement Heme DVT proph- lovenox ID ? prostatitis- on abx to complete 7 days case d/w ICU team labs, imaging, records reviewed ~ 35min required for eval, exam, review, intervention, discussion and formulation of POC for this acutely ill pt Provider Notation Provider Notation: Although this document has been carefully reviewed, there may still be some phonetic and other typographical errors. These errors are purely grammatical due to imperfections in the software program and should not be construed in any way to compromise the substance of the patient's medical care during this visit. Thank you for the opportunity and privilege in assisting you with this patient's care and management.
--- NOTE | 2025-02-07 12:03 | ESPR_ITS ---
<Statement entered by Sonny Tello MD - 02/21/25 17:16> I reviewed above note and agree with findings and plans. I have also personally examined the patient with medicine team and went over assessment and plan with medical team including internal consultant and resident physician. <Statement entered by Burak Mcmanus MD - 02/07/25 18:11> ICU downgrade for 54-year-old male past medical history of Insulin-dependent type 2 diabetes, primary hypertension, recent right ankle ORIF who presented to the ED with diabetic ketoacidosis and started on insulin drip. Patient also had distributive shock and was started on IV pressors temporarily. Cardiology was consulted for monomorphic nonsustained V. tach and cardiac workup was largely unremarkable. Patient's IV amiodarone has been discontinued and we will avoid QTc prolonging agents at this time. Patient's DKA has resolved and anion gap has closed multiple times; moreover, patient started on a long and short acting insulin regimen and will require diabetic education as he is mostly noncompliant. Patient apparently has been endorsing dysuria since 01/31, CT abdomen showed cystitis with bladder wall thickening there is some concern for prostatitis as such patient's been started on IV antibiotic regimen. Will continue monitoring and expect discharge within the next 24 to 48 hours. I have personally seen and examined the patient. I agree with the resident's assessment and plan as documented below. Burak Mcmanus DO PGY-2 Internal Medicine - [facility] Documentation for date of: 02/07/25 Subjective Subjective Interval history: Patient has been downgraded from ICU to telemetry on 02/07/2025. Patient is insulin-dependent type 2 diabetes patient, noncompliant with his insulin at home, does not remember how many units of insulin he was using at home, and was admitted to ICU for diabetic ketoacidosis. Patient declined to engage in full discussion and requested the physician to leave the room. Patient is currently on insulin lisinopril 5 units SC AC and insulin Degludec 15 units SC daily. Patient's latest bedside glucose level is 117. Patient exhibited symptoms of shock requiring Levophed in ICU. Patient is currently on midodrine 10 mg IV p.o. Q8HR. Patient's current BP is 110/77. On 02/05. Patient QTc was prolonged on EKG. Will avoid QTc prolonging agent. Patient had dysuria, suprapubic tenderness, and CT abdomen showing cystitis with bladder wall thickening. Urine culture was negative, UA was negative for nitrates, esterase and bacteria. Patient is currently on doxycycline. Will continue to monitor. Patient still has residual nausea. Denies chest pain, palpation, SOB, abdominal pain, fevers or chills. Exam Vital Signs Temp Pulse Resp BP Pulse Ox O2 Del Method O2 Flow Rate 97.0 F 76 13 126/88 H 95 Room Air 3 02/07/25 08:00 02/07/25 09:00 02/07/25 09:00 02/07/25 09:00 02/07/25 09:00 02/07/25 08:00 02/05/25 05:56 Narrative Exam General: No acute distress, well nourished, AAO x3 Eye: normal conjunctiva, no scleral icterus HENT: Normocephalic, atraumatic, hearing intact to conversation at normal volume, moist oral mucosa Neck: Supple, non-tender, no JVD, no lymphadenopathy Lungs: Non-labored respirations, symmetric chest rise, Clear to auscultate bilaterally, No wheezing, rhonchi, crackles Heart: Peripheral pulses intact bilaterally, Regular Rate and Rhythm. Abdomen: Soft, non-tender, non-distended, no palpable masses Musculoskeletal: Normal range of motion and strength, No cyanosis or edema, No visible joint swelling, Left upper extremity first phalanx amputation Skin: Skin is warm, dry, no rashes or lesions. Psychiatric: Cooperative, appropriate mood and affect, Awake and alert, not agitated Neuro: Cranial nerves II-XII grossly intact. Strength 5/5 throughout. Sensations intact to light touch. Objective Labs 02/07/25 04:44 02/07/25 09:15 Labs: Laboratory Results - last 24 hr 02/06/25 02/06/25 02/06/25 12:09 13:16 16:30 WBC RBC Hgb Hct MCV MCH MCHC RDW Std Deviation Plt Count Neut % (Auto) Lymph % (Auto) [place] % (Auto) Eos % (Auto) Baso % (Auto) Neut # (Auto) Lymph # (Auto) [place] # (Auto) Eos # (Auto) Baso # (Auto) Immature Gran # (Auto) Absolute Nucleated RBC Immature Gran % Nucleated RBC % Sodium 133 L 142 Potassium 3.3 L 2.9 L Chloride 103 107 Carbon Dioxide 11.8 L* 20.4 Anion Gap 18 H 15 BUN < 5 L < 5 L Creatinine 1.2 1.1 Estim Creat Clear Calc 82.4 89.9 eGFR > 60 > 60 BUN/Creatinine Ratio 4 L 5 L Glucose 105 D Calculated Osmolality 344 H 280 Lactic Acid 3.5 H 1.4 Calcium 7.4 L 8.5 Corrected Calcium Cancelled 9.1 Phosphorus 1.2 L 2.1 L Magnesium 1.2 L 2.1 Albumin Cancelled 3.3 L Beta-Hydroxybutyrate/Acetoacetate 02/06/25 02/06/25 02/07/25 20:45 21:08 00:58 WBC RBC Hgb Hct MCV MCH MCHC RDW Std Deviation Plt Count Neut % (Auto) Lymph % (Auto) [place] % (Auto) Eos % (Auto) Baso % (Auto) Neut # (Auto) Lymph # (Auto) [place] # (Auto) Eos # (Auto) Baso # (Auto) Immature Gran # (Auto) Absolute Nucleated RBC Immature Gran % Nucleated RBC % Sodium 138 140 Potassium 3.6 D 3.3 L Chloride 105 107 Carbon Dioxide 19.3 L 20.2 Anion Gap 14 13 BUN < 5 L < 5 L Creatinine 1.1 1.0 Estim Creat Clear Calc 89.9 98.9 eGFR > 60 > 60 BUN/Creatinine Ratio 5 L 5 L Glucose 184 H D 193 H Calculated Osmolality 277 281 Lactic Acid 1.4 1.3 Calcium 9.0 8.1 L Corrected Calcium 9.4 8.9 Phosphorus 2.1 L 2.1 L Magnesium 1.7 1.8 Albumin 3.5 3.0 L D Beta-Hydroxybutyrate/Acetoacetate 02/07/25 02/07/25 04:44 09:15 WBC 7.7 RBC 4.18 L Hgb 12.5 L Hct 37.9 L MCV 91 MCH 29.9 MCHC 33.0 RDW Std Deviation 45.1 H Plt Count 163 Neut % (Auto) 56 Lymph % (Auto) 30 [place] % (Auto) 11 Eos % (Auto) 2 Baso % (Auto) 0 Neut # (Auto) 4.4 Lymph # (Auto) 2.3 [place] # (Auto) 0.9 H Eos # (Auto) 0.1 Baso # (Auto) 0.0 Immature Gran # (Auto) 0.05 H Absolute Nucleated RBC 0.00 Immature Gran % 1 H Nucleated RBC % 0 Sodium 141 139 Potassium 3.1 L 3.3 L Chloride 106 106 Carbon Dioxide 22.9 22.1 Anion Gap 12 11 BUN < 5 L < 5 L Creatinine 0.9 0.8 Estim Creat Clear Calc 109.9 127.7 eGFR > 60 > 60 BUN/Creatinine Ratio 6 L 6 L Glucose 175 H 129 H Calculated Osmolality 282 276 Lactic Acid 1.2 1.3 Calcium 8.0 L 8.1 L Corrected Calcium 8.9 9.0 Phosphorus 2.5 2.1 L Magnesium 1.7 2.3 Albumin 2.9 L 2.9 L Beta-Hydroxybutyrate/Acetoacetate 1.2 H ABG Interpretation ABG results: 02/05/25 02/06/25 03:43 04:40 ABG pH 7.17 L* ABG pCO2 26 L ABG pO2 85 ABG HCO3 10 L ABG O2 Saturation 96 ABG Base Excess -17 L VBG pH 7.23 L VBG pCO2 27 L VBG pO2 38 VBG Base Excess -15 L Quality Measures Quality Measures VTE prophylaxis (Lovenox) Assessment & Plan Assessment Current Active Medications: Generic Name Dose Route Start Last Admin Trade Name Freq PRN Reason Stop Dose Admin Dextrose 25 ml 02/05/25 12:45 Dextrose 50%-Water Inj 50 Ml Syringe IV 03/07/25 12:44 Q15MIN PRN BG 50-70 responsive npo pt Dextrose 50 ml 02/05/25 12:45 Dextrose 50%-Water Inj 50 Ml Syringe IV 03/07/25 12:44 Q15MIN PRN BG <50 OR BG <70 & pt unresponsive Doxycycline Hyclate 100 mg 02/05/25 10:45 02/07/25 08:14 Doxycycline 100 Mg Tablet PO 02/12/25 10:44 100 mg BID ANGÉLICA Administration Enoxaparin Sodium 30 mg 02/05/25 21:00 02/06/25 20:36 Enoxaparin Sod Inj 30 Mg/0.3 Ml Syringe SC 02/19/25 20:59 30 mg QPM ANGÉLICA Administration Famotidine 20 mg 02/05/25 09:00 02/07/25 08:14 Famotidine Inj 10 Mg/Ml Vial 2 Ml IVP 03/07/25 08:59 20 mg BID ANGÉLICA Administration Glucagon 1 mg 02/05/25 12:45 Glucagon Inj 1 Mg Vial IM Q15MIN PRN BG <70, and no IV access Insulin Degludec 15 unit 02/07/25 06:25 02/07/25 06:51 Insulin Degludec 5 Unit/0.05 Ml (Per 5 Units) SC 03/09/25 06:24 15 unit QDAY ANGÉLICA Administration Insulin Human Lispro 5 unit 02/07/25 07:30 02/07/25 07:55 Insulin Lispro (Admelog) 1 Unit/0.01 Ml Unit SC 03/09/25 07:29 5 unit AC ANGÉLICA Administration Metoclopramide HCl 5 mg 02/06/25 01:30 02/07/25 11:22 Metoclopramide Inj 5 Mg/Ml Vial 2 Ml IVP 03/08/25 01:29 5 mg Q6HR ANGÉLICA Administration Protocol Midodrine 10 mg 02/06/25 14:00 02/07/25 05:14 Midodrine 5 Mg Tablet PO 03/08/25 13:59 10 mg Q8HR ANGÉLICA Administration Phenazopyridine HCl 100 mg 02/06/25 08:00 02/07/25 11:33 Phenazopyridine Hcl 100 Mg Tablet PO 02/07/25 17:31 100 mg TIDWM ANGÉLICA Administration Phenyleph/Shark Oil/Min Oil/Petrol 0 gm 02/06/25 09:26 Preparation H Oint 30 Gm Tube NV 03/08/25 09:25 BID PRN HEMORRHOIDS Potassium Chloride 40 meq 02/07/25 14:30 Potassium Chloride 20 Meq Tabcr PO 02/07/25 14:31 X1 ONE Plan 54-year-old male with past medical history of type II IDDM, primary hypertension and recent right ankle ORIF, who was brought in to the ED via EMS for altered mentation. Patient was admitted to ICU for managment of DKA with hypovolemic/distributive shock. DKA and shock resolved and patient has been downgraded from ICU to telemetry on 02/07/2025 #Severe Hyperglycemia #Type 2 Diabetes Mellitus, Insulin dependent #Anion gap metabolic acidosis with NAGMA with appropriate respiratory compensation 2/2 DKA, resolved #Distal RTA 2/2 Diabetes, resolved #DKA - Resolved #Shock, Likely Distributive vs. hypovolemic, Resolved #Acute metabolic encephalopathy -resolved -Home medication: Jardiance 25 mg daily, metformin 1 g twice daily, insulin Levemir, insulin regular -A1c 11.6. -BHB on admission was 4.8, peaked at 6.3, now 1.2. -Current lactic acid 1.2 -Patient's latest bedside glucose level is 117. -Blood Cx, Urine Cx was negative. Shock likely due to lactic acidosis and DKA. Was hypotensive requiring levophed in ICU. Current BP is 110/77 Plan: -Patient is currently on insulin lisinopril 5 units SC AC and insulin Degludec 15 units SC daily. -On midodrine 10 mg IV p.o. Q8HR. -on SSI. -On low carb consistent diet -Patient will require CGM on discharge. #Symptomatic UTI/prostatitis -Symptoms of dysuria and suprapubic tenderness -Urine Cx (02/05): Negative -Blood Cx (02/05): No growth for 48hrs x2 -Blood Cx (02/06): No growth for 24 hrs x2 -CT chest/abd/pelvis: Mild perinephric stranding and mild to moderate renal scar formation. Urinary bladder is thickened, consider cystitis -UA was negative for nitrates, esterase and bacteria. Plan: -Currently on Doxycycline 100mg PO bid -Will continue to monitor. #Monomorphic V.Tach- Resolved -Repeat EKG 02/05 in the morning showed QTc 479 with sinus rhythm -EKG 02/06 showed sinus rhythm -TTE 02/05 showed EF 55-60% with Normal L & R ventricular size and function Plan: - Will avoid QTc prolonging agent. #Hypokalemia -Continue to monitor electrolyte level #Constipation-Resolving -Lactulose 20g PO tid #Subclinical hypothyroidism -TSH: 5.89, free T4: 1.44 -Outpatient follow-up #Distal RTA 2/2 Diabetes, resolved #Prerenal LILIANA, resolved #Hypophosphatemia, resolved Disposition: Tele Diet: Low carb consistent Diet GI prophylaxis: Famotidine 20 mg twice daily DVT prophylaxis:Enoxaparin 40mg SC daily Code: FULL Assessment and plan discussed with my attending physician Dr. Tello and Dr. Mcmanus (PGY-2) Dr. Cullen (PGY-1) - Internal medicine resident
[2025-02-07] MEDS: LACTULOSE SYRUP 20 GM/30 ML UDC PO (13:47)
[2025-02-07] MEDS: ENOXAPARIN SOD INJ 30 MG/0.3 ML SYRINGE SC (20:45)
[2025-02-08] VITALS (7 sets, daily range): BP systolic 113–147; BP diastolic 76–96; PULSE 88–101; RESP 12–17; TEMP 36.1–37; O2SAT 94–97; BMI 39.5
[2025-02-08] MEDS: METOCLOPRAMIDE INJ 5 MG/ML VIAL 2 ML IVP ×3 (00:18→11:59)
[2025-02-08] MEDS: LACTULOSE SYRUP 20 GM/30 ML UDC PO (05:43)
[2025-02-08 07:16] LABS: Basophils # (Auto) 0.0 Thou/mm3 (0.0-0.2); Basophils % (Auto) 0 % (0-2.5); Eosinophils # (Auto) 0.1 Thou/mm3 (0.0-0.5); Eosinophils % (Auto) 2 % (0-10); Hematocrit 40.2 % (41.0-53.0); Hemoglobin 13.2 g/dL (13.5-16.0); Immature Granulocytes Auto 0.04 Thou/mm3 (0.00-0.00); Lymphocytes # (Auto) 2.0 Thou/mm3 (1.0-4.8); Lymphocytes % (Auto) 30 % (10-50); Mean Corpuscular HGB Conc 32.8 g/dl (31.0-37.0); Mean Corpuscular Hemoglobin 29.9 pg (25.0-35.0); Mean Corpuscular Volume 91 fL (80-100); Monocytes # (Auto) 1.0 Thou/mm3 (0.0-0.8); Monocytes % (Auto) 16 % (0-12); Neutrophils # (Auto) 3.4 Thou/mm3 (1.8-7.7); Neutrophils % (Auto) 52 % (37-80); Nucleated Red Blood Cell # 0.00 Thou/mm3 (0.00-0.00); Nucleated Red Blood Cell % 0 /100 WBC (0); Platelet Count 188 Thou/mm3 (140-440); RDW Standard Deviation 45.7 fL (35.1-43.9); Red Blood Count 4.41 Miln/mm3 (4.50-5.90); White Blood Count 6.6 Thou/mm3 (3.8-10.6)
[2025-02-08 07:54] LABS: Albumin, Serum 3.0 gm/dL (3.5-5.0); Albumin/Globulin Ratio 1.2 (1.2-2.2); Alkaline Phosphatase 80 U/L (46-116); Anion Gap 15 (7-16); Aspartate Amino Transferase 15 U/L (0-34); BUN/Creatinine Ratio 6 Ratio (12-20); Bilirubin,Total 0.5 mg/dL (0.3-1.2); Blood Urea Nitrogen < 5 mg/dL (9-23); Calcium 8.4 mg/dL (8.3-10.6); Calcium (Corrected) 9.2 mg/dL (8.5-10.1); Carbon Dioxide 20.8 mMol/L (20.0-31.0); Chloride 104 mMol/L (98-107); Creatinine (Component) 0.9 mg/dL (0.6-1.3); Estimated Creatinine Clearance 114.1 mL/min (>60); Globulin 2.6 gm/dL (2.3-3.5); Glucose 185 mg/dL (74-106); Magnesium 1.9 mg/dL (1.6-2.6); Osmolality,Calculated 281 (275-295); Phosphorous 2.8 mg/dL (2.4-5.1); Potassium 3.5 mMol/L (3.4-5.1); Sodium 140 mMol/L (136-145); Total Protein 5.6 gm/dL (5.7-8.2); eGFR > 60 See Note
[2025-02-08 07:58] LABS: Alanine Aminotransferase 9 U/L (10-49)
[2025-02-08] MEDS: FAMOTIDINE 20 MG TABLET PO (08:12)
[2025-02-08] MEDS: DOXYCYCLINE 100 MG TABLET PO (08:12)
[2025-02-08] MEDS: INSULIN LISPRO (AdmeLOG) 1 UNIT/0.01 ML UNIT 5 UNIT SC ×2 (08:12→11:59)
[2025-02-08] MEDS: INSULIN DEGLUDEC 5 UNIT/0.05 ML (PER 5 UNITS) 15 UNIT SC (08:13)
--- NOTE | 2025-02-08 17:29 | ESDS_ITS ---
<Statement entered by Ady Vaughn MD - 02/09/25 12:44> I have discussed and was present for the essential components of the history, physical examination, diagnosis, and treatment plan with the resident. I agree with the patient's care as documented by the resident and amended herein by me. Ady Vaughn MD FACP. Planned Discharge Date 02/08/25 DS: Providers Provider Date of admission: 02/05/25 03:43 Primary care physician: Joselito Serra MD Admitting Provider: Ady Vaughn MD Attending Provider on Admission: Rossy Gutierrez MD Consults: 02/05/25 00:00 Consult to Cardiology Routine Comment: Consulting Provider: Oscar Celeste 02/05/25 03:46 Referral Registered Dietitian Routine Comment: 02/05/25 04:14 Referral Speech Therapy Routine Comment: Jewell asif 02/05/25 05:15 Health Equity Referral - Knowledge Deficit Routine Comment: Positive screening for knowledge deficit needs. Health Equity Referral - Nutrition Routine Comment: Positive screening for nutrition needs. 02/05/25 22:16 Referral Speech Therapy Routine Comment: jewell asif 02/06/25 08:35 Referral Registered Dietitian Routine Comment: Attending Provider on DC: Ady Vaughn MD Discharging Provider: Ady Vaughn MD DS: Diagnosis Problem List Completed Was Problem List Reviewed/Reconciled?: Yes Hospital Course Hospital Course Hospital course: 54-year-old male past medical history of Insulin-dependent type 2 diabetes, primary hypertension, recent right ankle ORIF who presented to the ED with diabetic ketoacidosis. ED course: In the ED, vitals showed hypotension BP 70/50, MAP 50s. Tachycardia HR 101-105 bpm, afebrile, and saturations 96/97% on 3 L oxygen via nasal cannula. Initial laboratory workup remarkable for mild leukocytosis WBC 13.7 with lymphocyte predominance, hemoconcentration Hb 16.5, hypokalemia K2.9, BHB 4.8 anion gap 22, pH 7.17, CO2 26 and bicarb 11.2, glucose 121, lactic acid 4.9. He also had mildly elevated CRP 1.3, TSH 5.89, lipase 342 and amylase 199. UA remarkable for 4+ glucosuria and 4+ ketonuria. U tox negative. EKG showed sinus tachycardia. ICU/Hospital course: The DKA was managed with insulin drip in the ICU. Patient also had distributive shock and was started on IV pressors temporarily. Cardiology was consulted for monomorphic nonsustained V. tach and cardiac workup was largely unremarkable. Patient's IV amiodarone has been discontinued and we will avoid QTc prolonging agents at this time. Patient's DKA has resolved and anion gap has closed multiple times; moreover, patient started on a long and short acting insulin regimen and was provided with diabetic education as he is mostly noncompliant. Patient apparently had been endorsing dysuria since 01/31, CT abdomen showed cystitis with bladder wall thickening and there was some initial concern for prostatitis, however that had been ruled. UA and urine Cx was negative. Abx were discontinued at discharged. Patient is progressing back to baseline at discharge. Discharge instructions: -Continue home medication as prescribed -Start taking degludec 15 units daily which is a long-acting insulin, it will help to control blood sugar -You will prescribed GCS glucometer, please continue close monitoring of blood sugar otherwise you might develop another DKA -Insulin sliding scale was discontinued, please stop taking it -Continue taking Jardiance and metformin -Continue taking home medication -Follow-up outpatient with financial services consultant for better blood sugar control -Return to ED anytime symptoms worsen -Follow-up outpatient with PCP in 1 to 2 weeks after discharge. Admission diagnoses: #Severe Hyperglycemia #Type 2 Diabetes Mellitus, Insulin dependent #Anion gap metabolic acidosis with NAGMA 2/2 DKA, resolved #Distal RTA 2/2 Diabetes, resolved #DKA - Resolved #Shock, Likely Distributive vs. hypovolemic, resolved #Acute metabolic encephalopathy -resolved #Symptomatic UTI, resolved #Monomorphic V.Tach- Resolved #Hypokalemia, resolved #Constipation,resolved #Subclinical hypothyroidism #Distal RTA 2/2 Diabetes, resolved #Prerenal LILIANA, resolved #Hypophosphatemia, resolved Case discussed with my attending Dr. Vaughn, and senior resident, Dr. Windy Chavez MD PGY-1 Status at Discharge Overall status at discharge: patient is progressing back to baseline Time Spent with Patient Time attestation: Total time spent providing and/or coordinating discharge services: Time spent: Greater than 30 minutes Exam Vital Signs Temp Pulse Resp BP Pulse Ox O2 Del Method O2 Flow Rate 97.1 F 99 16 119/76 97 Room Air 3 02/08/25 14:18 02/08/25 14:18 02/08/25 14:18 02/08/25 14:18 02/08/25 14:18 02/08/25 14:18 02/05/25 05:56 Narrative Exam General: No acute distress, well nourished, AAO x3 Eye: normal conjunctiva, no scleral icterus HENT: Normocephalic, atraumatic, hearing intact to conversation at normal volume, moist oral mucosa Neck: Supple, non-tender, no JVD, no lymphadenopathy Lungs: Non-labored respirations, symmetric chest rise, Clear to auscultate bilaterally, No wheezing, rhonchi, crackles Heart: Peripheral pulses intact bilaterally, Regular Rate and Rhythm. Abdomen: Soft, non-tender, non-distended, no palpable masses Musculoskeletal: Normal range of motion and strength, No cyanosis or edema, No visible joint swelling, Left upper extremity first phalanx amputation Skin: Skin is warm, dry, no rashes or lesions. Psychiatric: Cooperative, appropriate mood and affect, Awake and alert, not agitated Neuro: Cranial nerves II-XII grossly intact. Strength 5/5 throughout. Sensations intact to light touch. Discharge Plan Plan Patient Disposition: HOME (Self Care) Patient condition on transfer: Stable Care Plan Goals: Continue home medication as prescribed Start taking degludec 15 units daily which is a long-acting insulin, it will help to control blood sugar You will prescribed GCS glucometer, please continue close monitoring of blood sugar otherwise you might develop another DKA Insulin sliding scale was discontinued, please stop taking it Continue taking Jardiance and metformin Continue taking home medication Follow-up outpatient with financial services consultant for better blood sugar control Return to ED anytime symptoms worsen Follow-up outpatient with PCP in 1 to 2 weeks after discharge. Prescriptions/Referrals Prescriptions/Med Rec: New (DME) blood-glucose meter Kit See Rx Instructions .Route Qty: 1 0RF Rx Instructions: As directed insulin degludec 100 unit/mL Solution 15 unit SCi QDAY Qty: 10 0RF (DME) FreeStyle Maria Esther 3 Sensor Device See Rx Instructions .Route Qty: 1 0RF Rx Instructions: As directed (DME) Blood Glucose Test Strip See Rx Instructions .Route Qty: 50 0RF Rx Instructions: As directed (DME) FreeStyle Maria Esther 3 Plus Sensor Device See Rx Instructions .Route Qty: 1 0RF Rx Instructions: As directed (DME) Dexcom G7 Sensor Device See Rx Instructions .Route Qty: 1 0RF Rx Instructions: As directed (DME) Dexcom G7 Progressive Care Manager Misc See Rx Instructions .Route Qty: 1 0RF Rx Instructions: As directed Continued lisinopril 10 mg tablet 10 mg PO QDAY gabapentin 300 mg capsule 600 mg PO TID Jardiance 25 mg tablet 25 mg PO QDAY simvastatin 20 mg Tablet 20 mg PO QPM metformin 1,000 mg Tablet 1,000 mg PO BIDWMEAL hydrocodone-acetaminophen 5-325 mg Tablet 1 tab PO BID PRN (Reason: Pain (Scale Score 4-6)) 10 Days Qty: 20 0RF aspirin 325 mg capsule 325 mg PO BID Qty: 30 0RF Discontinued Novolin R Regular U100 Insulin 100 unit/mL solution See Rx Instructions .ROUTE .COMPLEX Patient Comments: INJECT 15-45 UNITS PER SLIDING SCALE TARAH VECES AL D A 15 MINUTES BEFORE MEALS FOR 30 DAYS Rx Instructions: INJECT 15-45 UNITS PER SLIDING SCALE 3 TIMES DAILY Levemir U-100 Insulin 100 unit/mL Solution 100 unit SUBCUT QDAY Rx Instructions: patient takes 60 units twice a day sub q Referrals: Joselito Serra MD [Primary Care Provider, Family Practice] Patient/Caregiver Discharge Instructions Education Materials: Ketoacidosis Ch Print Language: [place] Stand Alone Forms: Nikole Award Info., Patient Portal Info Letter Discharge Order Discharge Orders: Discharge (Routine); Ordered 02/08/25 Ordered By: Jody Temple Quality Discharge Quality Measures VTE prophylaxis
[2025-02-12 06:31] LABS: Vitamin B1 (Thiamine)* <6 nmol/L (8-30)
== END 2025-02-08 14:24 | disposition home or self-care (01) | DRG 420 ==
LOC: SERX 04:02 → SERHOLD 04:04 → S2SX 07:24 → S2NX 02-07 15:03
PROVIDERS: Student in an Organized Health Care Education/Training Program; Admitting Provider Internal Medicine; Emergency Provider Emergency Medicine; PCP Family Medicine; Visit Provider Internal Medicine
DX: E11.10 Type 2 diabetes mellitus with ketoacidosis without coma (principal); Z79.4 Long term (current) use of insulin; I10 Essential (primary) hypertension; Z91.148 Patient's other noncompliance with medication regimen for other reason; G93.41 Metabolic encephalopathy; I47.20 Ventricular tachycardia, unspecified; R57.9 Shock, unspecified; Z79.84 Long term (current) use of oral hypoglycemic drugs; N39.0 Urinary tract infection, site not specified; E87.6 Hypokalemia; N17.9 Acute kidney failure, unspecified; R10.30 Lower abdominal pain, unspecified; E03.8 Other specified hypothyroidism; E83.39 Other disorders of phosphorus metabolism; E88.09 Other disorders of plasma-protein metabolism, not elsewhere classified; Z79.899 Other long term (current) drug therapy; I47.10 Supraventricular tachycardia, unspecified; I49.3 Ventricular premature depolarization; K59.00 Constipation, unspecified; N41.3 Prostatocystitis; R57.8 Other shock; I47.29 Other ventricular tachycardia; E86.1 Hypovolemia; I08.1 Rheumatic disorders of both mitral and tricuspid valves
CPT/HCPCS: 36415; 36600; 71045; 71250; 74176; 80048; 80053; 80069; 80074; 80307; 80320; 81001; 82010; 82140; 82150; 82247; 82248; 82436; 82550; 82746; 82803; 83036; 83605; 83690; 83735; 83880; 84075; 84100; 84133; 84145; 84155; 84300; 84425; 84439; 84443; 84450; 84460; 84484; 85014; 85018; 85025; 85652; 86140; 86703; 87040; 87081; 87086; 87205; 87491; 87502; 87591; 87661; 87811; 92526; 92610; 93005; 93306; 96365; 96366; 96375; 99285; J0282; J0283; J0692; J1650; J1815; J2405; J2765; J3475; J3480; J3490; J7030; J7050; J7120; J7121; J7999; A9270; G0480